=== PATIENT | male | born 1960 | race Caucasian/White ===

== ENCOUNTER 2020-12-20 09:56 | Outpatient (RCR) | payer OTHER, SELFPAY ==
[2016-07-19 17:33] VITALS: BMI 29.5
== END 2021-02-20 23:59 ==
LOC: IMMUN 09:56
PROVIDERS: PCP Nurse Practitioner Primary Care; Visit Provider Family Medicine
DX: Z23 Encounter for immunization (principal)
CPT/HCPCS: 0002A; 91300

== ENCOUNTER → 2021-01-18 | Outpatient (CLI) | payer OTHER, SELFPAY ==
[2016-07-19 17:33] VITALS: BMI 29.5
--- NOTE | 2021-01-18 | IMM_PTH ---
PATIENT: STALIN BENTLEY LOC: [facility] U#:[id number] AGE/SX: 60/M ROOM: RE01/18/[address]: Dr. Tyrone Conteh MD : 1960 BED: DIS: 01/18/2021 SPEC #: [id number] RECD: 01/19/21 12:07 STATUS: JACKIE REQ #: [id number] AKBAR: 01/18/21 00:[address]: Tyrone Conteh DEPT: IMMUNOHISTOCHEMISTRY RECD BY: Meaghan Waters ENTERED: 01/19/21 12:08 SP TYPE: IMMUNO OTHR DR: Mukul Escobar, CASING FLUSHER-C Tissues: A - PROSTATE RIGHT B - PROSTATE RIGHT C - PROSTATE RIGHT Procedures: 34BE12 (add) P40 (add) 34BE12 (initial) PHYSICIAN & INSTITUTION [place] [id number] SPECIMEN INFORMATION: Tissue Source: A - Right prostate, apex, B - Right prostate, mid, C - Right prostate, base Clinical Info: R97.20 Specimen Number: [id number] A-C CPT code: 86272, 35450 x5 METHODOLOGY: Deparaffinized sections of prefer/formalin-fixed tissue or PAP/DQ stained slides are incubated with monoclonal/polyclonal antibodies/oligonucleotide probes. Localization is made via biotin free immunoperoxidase method. Appropriate controls are performed and reacted as expected. Results on target cell population are indicated in the following table: RESULTS: ANTIBODY / CLONE RESULT Block A 34BE12 (34BE12) negative P40 (BC28) negative Block B 34BE12 (34BE12) negative P40 (BC28) negative Block C 34BE12 (34BE12) negative P40 (BC28) negative These tests were developed and their performance characteristics determined by [facility]. They may not have been cleared or approved by the U.S. Food and Drug Administration. The FDA has determined that such clearance or approval is not necessary. The above immunohistochemical/dualISH markers are ordered and reviewed by the Pathologist. INTERPRETATION: A. Right prostate, apex, core biopsy: Adenocarcinoma. B. Right prostate, mid, core biopsy: Adenocarcinoma. C. Right prostate, base, core biopsy: Adenocarcinoma. AM:josy 01/19/2021
--- NOTE | 2021-01-18 08:00 | PROSBIL_PTH ---
PATIENT: STALIN BENTLEY LOC: [facility] U#:[id number] AGE/SX: 60/M ROOM: RE01/18/[address]: Dr. Tyrone Conteh MD : 1960 BED: DIS: 01/18/2021 SPEC #: [id number] RECD: 01/18/21 12:34 STATUS: JACKIE RESal #: [id number] AKBAR: 01/18/21 08:[address]: Tyrone Conteh DEPT: SURGICAL PATHOLOGY RECD BY: Sara Alfaro ENTERED: 01/18/21 12:34 SP TYPE: PROST BX MORGAN DR: Mukul Escobar, GUNJAN Tissues: A - PROSTATE RIGHT B - PROSTATE RIGHT C - PROSTATE RIGHT D - PROSTATE LEFT E - PROSTATE LEFT F - PROSTATE LEFT Procedures: PROSTATE BX HEADER OPERATION: Prostate biopsy PRE-OP DIAGNOSIS: R97.20 TISSUE SUBMITTED: A - Right apex, B - Right mid, C - Right base, D - Left apex, E - Left mid, F - Left base MICROSCOPIC DIAGNOSIS A. Right prostate, apex, core biopsy: Adenocarcinoma. [place] grade: 6 (3+3) Cores involved: 1 out of 2 cores Tissue involved: 2% Greatest tumor length: 1 millimeter See comment. B. Right prostate, mid, core biopsy: Adenocarcinoma. [place] grade: 6 (3+3) Cores involved: 1 out of 2 cores Tissue involved: 5% Greatest tumor length: 1.6 millimeters See comment. C. Right prostate, base, core biopsy: Adenocarcinoma. [place] grade: 6 (3+3) Cores involved: 2 out of 2 cores Tissue involved: 1% Greatest tumor length: 1 millimeter See comment. D. Left prostate, apex, core biopsy: Chronic prostatitis. E. Left prostate, mid, core biopsy: Focal glandular atrophy and mild chronic inflammation. F. Left prostate, base, core biopsy: Mild chronic inflammation, focal acute inflammation. Focal glandular atrophy. AM:josy 01/19/2021 COMMENT A-C. Immunohistochemistry ([id number]) supports the above diagnosis. Case has been reviewed in consultation with Dr. Zelaya who concurs with the above diagnosis. IDC:SJ MICROSCOPIC DESCRIPTION Slides are reviewed. GROSS DESCRIPTION A - Received is one container designated prostate, right apex. The specimen consists of two elongated fragments of light funes-white soft tissue measuring 0.7 and 1 cm in length and 0.1 cm in diameter. The specimen is totally submitted in one cassette. B - Received is one container designated prostate, right mid. The specimen consists of two elongated fragments of light funes-white soft tissue each measuring 1 cm in length and 0.1 cm in diameter. The specimen is totally submitted in one cassette. C - Received is one container designated prostate, right base. The specimen consists of two elongated fragments of light funes-white soft tissue each measuring 1 cm in length and 0.1 cm in diameter. The specimen is totally submitted in one cassette. D - Received is one container designated prostate, left apex. The specimen consists of two elongated fragments of light funes-white soft tissue measuring 0.7 and 1 cm in length and 0.1 cm in diameter. The specimen is totally submitted in one cassette. E - Received is one container designated prostate, left mid. The specimen consists of two elongated fragments of light funes-white soft tissue each measuring 1.1 cm in length and 0.1 cm in diameter. The specimen is totally submitted in one cassette. F - Received is one container designated prostate, left base. The specimen consists of two elongated fragments of light funes-white soft tissue each measuring 1.1 cm in length and 0.1 cm in diameter. The specimen is totally submitted in one cassette. / SJ:rg 01/18/21 TC:Samson [facility]: [id number] x6 ADDENDUM ADDENDUM ADDENDUM ADDENDUM ADDENDUM ADDENDUM ADDENDUM ADDENDUM 01/01/2022 15:33 ADDENDUM 01/01/2022 15:33 ADDENDUM 01/01/2022 15:33 ADDENDUM 01/01/2022 15:33 ADDENDUM 01/01/2022 15:33 An order for Oncotype testing was received from Dr. Conteh. This necessitated case review, block and slide selection by pathologist at [facility]. Genomic Prostate Score = 40 Results of the complete Oncotype testing (Lotus Tissue Repair report) are viewable in EMR under: Reports - Pathology - Lab Pathology Report, Scanned.
== END | disposition home or self-care (01) ==
LOC: LABSPEC 10:54
PROVIDERS: PCP Nurse Practitioner Primary Care; Referring Provider Urology; Visit Provider Urology
DX: R97.20 Elevated prostate specific antigen [PSA] (principal)
CPT/HCPCS: 88305; 88341; 88342; G0416

== ENCOUNTER → 2021-09-03 08:08 | Outpatient (CLI) | payer SELFPAY ==
[2021-09-03 09:33] LABS: PSA,Total- Diagnostic 3.84 ng/mL (0.0-4.0)
== END ==
PROVIDERS: PCP Nurse Practitioner Primary Care; Visit Provider Urology
DX: C61 Malignant neoplasm of prostate (principal)
CPT/HCPCS: 36415; 84153

== ENCOUNTER → 2022-02-28 | Outpatient (CLI) | payer OTHER, SELFPAY ==
[2022-02-28 08:11] LABS: PSA,Total- Diagnostic 5.27 ng/mL (0.0-4.0)
== END | disposition home or self-care (01) ==
LOC: LAB 07:17
PROVIDERS: PCP Nurse Practitioner Primary Care; Referring Provider Urology; Visit Provider Urology
DX: C61 Malignant neoplasm of prostate (principal)
CPT/HCPCS: 36415; 84153

== ENCOUNTER → 2022-04-03 | Outpatient (CLI) | payer OTHER, SELFPAY ==
[2022-04-03 06:55] LABS: CREATININE FINGERSTICK < 0.9 mg/dL (0.70-1.30); EGFR FINGERSTICK > 60.0000 mL/min (>60)
--- NOTE | 2022-04-03 07:00 | MRI_ITS ---
STUDY: MR PELVIS WITH T WITHOUT CONTRAST REASON FOR EXAM: Male, 61 years old. ELEVATED PSA, + BIOPSY TECHNIQUE: Standardized fat and water weighted pulse sequences were obtained in all 3 orthogonal planes, pre-and post contrast administration. IV 15ml Dotarem was administered for the contrast portion of the examination. COMPARISON: None. FINDINGS: Prostate Volume: Mildly enlarged at 5.83 x 3.72 x 4.52 cm. There are 2 dominant ovoid and rounded primarily hypointense nodules centered in the middle one third aspect of the transitional zone on the left and right side of the prostate gland measuring 1.60 cm and 1.68 cm respectively that are concerning for focal malignancies. The nodule on the right demonstrates moderate enhancement, however the nodule on the left demonstrates minimal enhancement, see image 16/32 series #10 on the postcontrast sequence. There is mild herniation of the base of the prostate gland into the bladder floor. The prostate peripheral zone glandular tissue appears diffusely heterogeneous with a diffusely nodular pattern, consistent with prostatic hyperplasia. The prostate central zone glandular tissue appears diffusely heterogeneous and nodular. The prostate transitional zone glandular tissue appears diffusely heterogeneous and nodular. Anterior fibromuscular stroma: Unremarkable. Prostate capsule: Intact without evidence of a mass/neoplasm invading through this region. The seminal vesicles appear normal without evidence of nodules or lesions. Normal urinary bladder. Normal visualized small intestine. There are multiple colonic diverticula of the sigmoid colon consistent with chronic diverticulosis. There is no pelvic fluid. There is no pelvic mass lesion or lymphadenopathy. Normal visualized pelvic arteries. Normal osseous structures. Normal abdominal wall. A moderate to large size left testicular hydrocele is present. MRI/Pelvis W/WO Contrast IMPRESSION: 1. There are 2 dominant ovoid and rounded primarily hypointense nodules centered in the middle one third aspect of the transitional zone on the left and right side of the prostate gland measuring 1.60 cm and 1.68 cm respectively that are concerning for focal malignancies. 2. The nodule on the right demonstrates moderate enhancement, however the nodule on the left demonstrates minimal enhancement, see image 16/32 series #10 on the postcontrast sequence. 3. PI-RADS 4 4. Moderate to large size left testicular hydrocele 5. Sigmoid diverticulosis REFERENCE: Prostate RADS PI-RADS is used to standardize interpretation of prostate MRI, improve early diagnosis and treatment, and reduce unnecessary biopsies. In the PI-RADS scale, each lesion is assigned a score from 1 to 5 indicating the likelihood of clinically significant cancer. ? PI-RADS 1: clinically significant cancer is highly unlikely to be present ? PI-RADS 2: clinically significant cancer is unlikely to be present ? PI-RADS 3: the presence of clinically significant cancer is equivocal ? PI-RADS 4: clinically significant cancer is likely to be present ? PI-RADS 5: clinically significant cancer is highly likely to be present Electronically Signed: Scotty Marshall MD at 11:38 EDT ,
== END | disposition home or self-care (01) ==
PROVIDERS: PCP Nurse Practitioner Primary Care; Referring Provider Urology; Visit Provider Urology
DX: R97.20 Elevated prostate specific antigen [PSA] (principal)
CPT/HCPCS: 72197; A9575

== ENCOUNTER 2022-05-10 10:55 | Observation (INO) | payer OTHER, SELFPAY ==
[2022-05-06 09:58] LABS: Hematocrit 47.9 % (40-54); Hemoglobin 16.4 g/dL (13.0-16.5); Mean Corp Hgb Conc 34.2 g/dL (32-36); Mean Corpuscular Hgb 31.3 pg (27.0-32.0); Mean Corpuscular Volume 91.4 fL (80-94); Mean Platelet Vol. 9.3 fl (6.2-12.0); Platelet Count 304 K/mm3 (150-450); RBC Distribution Width CV 12.9 % (11.6-14.6); RBC Distribution Width SD 43.1 fl (35.1-43.9); Red Blood Count 5.24 M/mm3 (4.6-6.2); White Blood Count 9.1 K/mm3 (4.4-11.0)
[2022-05-06 10:06] LABS: International Normalized Ratio 1.1; Prothrombin Time (Protime)PT. 13.6 SECONDS (11.7-14.9)
[2022-05-06 10:24] LABS: AST(SGOT) 18 U/L (15-37); Alanine Aminotransfer ALT/SGPT 35 U/L (16-61); Albumin, Serum 3.8 g/dL (3.2-5.0); Alkaline Phosphatase 72 U/L (45-117); Anion Gap 5 (5-15); BUN 15 mg/dL (7-18); BUN/Creat Ratio 14.3 RATIO (10-20); Calcium,Total 9.1 mg/dL (8.5-10.1); Chloride 105 mmol/L (98-107); Creatinine, Serum 1.05 mg/dL (0.70-1.30); EST Glomerular Filtration Rate 76 mL/min (>60); Est Glom Filt Rate - Afr Amer 92 mL/min (>60); Globulin 3.8 g/dL (2.2-4.2); Glucose 102 mg/dL (74-106); Potassium 3.9 mmol/L (3.5-5.1); Protein, Total 7.6 g/dL (6.4-8.2); Sodium Level 139 mmol/L (136-145)
[2022-05-06 10:29] LABS: Hemoglobin A1c 6.1 % (3.8-5.6)
--- NOTE | 2022-05-07 12:56 | EKG12_ITS ---
Test Reason : PREOP Blood Pressure : / mmHG Vent. Rate : 070 BPM Atrial Rate : 070 BPM P-R Int : 114 ms QRS Dur : 080 ms QT Int : 394 ms P-R-T Axes : 016 029 014 degrees QTc Int : 425 ms Normal sinus rhythm Normal ECG Confirmed by JO DAUGHERTY, ANG ([id number]), editor in chief ELSY LR ([id number]) on 05/07/2022 12:58:04 PM Referred By: Tyrone Conteh Confirmed By:ANG OSORIO MD
[2022-05-10] VITALS (11 sets, daily range): BP systolic 124–157; BP diastolic 76–95; PULSE 61–81; RESP 16–18; TEMP 36.3–36.6; O2SAT 93–100; BMI 26.1
[2022-05-10] MEDS: Lactated Ringers 1,000 ML 15 ML IV (06:30)
[2022-05-10 07:26] LABS: Bedside Glucose 161 mg/dL (74-106)
[2022-05-10] MEDS: Cefazolin 2 GM in 0.9% Normal Saline 100 ML IV (07:30)
--- NOTE | 2022-05-10 07:30 | PROST_PTH ---
PATIENT: STALIN BENTLEY LOC: [facility] U#:[id number] AGE/SX: 61/M ROOM: [facility] RE05/10/[address]: Dr. Tyrone Conteh MD : 1960 BED: 1 DIS: 05/11/2022 SPEC #: [id number] RECD: 05/10/22 16:41 STATUS: JACKIE RESal #: [id number] AKBAR: 05/10/22 07:[address]: Tyrone Conteh DEPT: SURGICAL PATHOLOGY RECD BY: Sara Alfaro ENTERED: 05/13/22 08:13 SP TYPE: PROSTATE OTHR DR: Mukul Escobar, GUNJAN Tissues: A - Lymph node, NOS B - Prostate, NOS Procedures: Surgery Specimen Level IV Surgery Specimen Level HEADER OPERATION: Lap robotic radical prostatectomy with nerve monitoring PRE-OP DIAGNOSIS: Prostate cancer TISSUE SUBMITTED: A ? Pelvic lymph nodes and fat, B - Prostate MICROSCOPIC DIAGNOSIS A. Pelvic lymph nodes and fat: Adipose tissue, negative for carcinoma. See comment. B. Prostate, radical prostatectomy: Prostatic adenocarcinoma. See cancer summary in the comment section. SJ:josy 05/15/2022 COMMENT A. Lymph node tissue is not identified. B. PROSTATE CANCER (RADICAL) SUMMARY: Procedure: Radical Prostatectomy Prostate Size: Weight: 53.8 gm Size: 4.5 cm transversely, 3.5 cm anterior-posteriorly and 3.5 cm craniocaudally Histologic Grade: Grade group 1 ([place] score 3+3=6) Tumor Quantitation: Estimated percentage of prostate involved by tumor: ~10% Tumor size: Tumor is measured microscopically. Tumor involves both right and left lobes. The tumor extensively involves right lobe, apical, mid and basal portion prostate and measures approximately 2.8 x 2.4 x 0.8 cm, Tumor involves left lobe apical, mid and basal portion in discontinuous manner and largest focus measures 1 x 0.4 cm in greatest dimension. Extraprostatic Extension: Not identified Urinary Bladder Neck Invasion: Not identified Seminal Vesicle Invasion: Not identified Lymphvascular Invasion: Not identified Perineural Invasion: Present, focal Margins: Uninvolved by invasive carcinoma Regional Lymph Nodes: No lymph nodes are found. Treatment Effect: No known presurgical therapy. Distant metastasis: No applicable Additional Pathologic Findings: - Focal high-grade prostatic intraepithelial neoplasia (HGPIN). - Chronic inflammation. - Benign prostatic hyperplasia. Axillary Studies: Not performed Clinical history: Please make reference to previous specimen ([id number]) right prostate apex, mid and base, core biopsies with diagnosis of ?adenocarcinoma.? PATHOLOGIC STAGE: pT2 pNx pMx The above summary is in compliance with [employer] (CAP) Cancer Protocols Checklist and [place] Joint Committee on Cancer (AJCC), Staging Manual, 8th Ed. Case has been reviewed in consultation with Dr. Chapa who concurs with the above diagnosis. IDC:AM MICROSCOPIC DESCRIPTION Slides are reviewed. GROSS DESCRIPTION A - Received in fixative is one container labeled with the patient's name and designated pelvic lymph node and fat. The specimen consists of an irregular piece of tissue measuring 4.5 x 4 x 0.5 cm. No lymph node tissue is identified. The entire specimen is submitted in three cassettes. B - Received in fixative is one container labeled with the patient's name and designated prostate. The specimen consists of a radical prostatectomy specimen consisting of prostate and bilateral seminal vesicles. The specimen weighs 53.8 gm. The prostate measures 4.5 cm transversely, 3.5 cm anterior-posteriorly and 3.5 cm craniocaudally. The right seminal vesicle measures 3 x 1.5 x 1 cm and right vas deferens measures 2.5 cm in length and 0.5 cm in diameter. The left seminal vesicle measures 3 x 1.5 x 1 cm and the left vas deferens measures 3 cm in length and 0.5 cm in diameter. The prostate is inked as follows: anterior surface - yellow, posterior surface - black, right lateral surface - blue, left lateral surface - green. The bilateral seminal vesicles and vas deferens are inked as follows: Posterior surface bilateral seminal vesicle and vas deferens - black, anterior surface right seminal vesicle and vas deferens - blue and anterior left seminal vesicle and vas deferens - green. Flight Readiness Technician sections are submitted in 20 cassettes as follows: 1 - right seminal vesicle and vas deferens, 2 - left seminal vesicle and vas deferens, 3 - apical (urethral) margin, enface, 4 & 5 - bladder base and basal portion of prostate margin, enface, 6-10 - apical portion prostate, 11-14 - middle portion prostate, 15-20 - basal portion prostate. Sections are submitted after additional fixation. / FELICIANO:josy 05/13/2022 TC:0 CPT: 66513, 72065
[2022-05-10] MEDS: Bupivacaine 0.25% 30 ML Vial (07:59)
--- NOTE | 2022-05-10 11:00 | HP.PCM_ITS ---
HPI - General General Date of Service: 05/10/22 HPI Vanessa BENTLEY, is a 61 M who presents for radical prostatectomy for prostate cancer, [facility], [facility] Medical History (Updated 05/01/22 @ 13:06 by Vonnie Black) Cancer Diabetes Dietary restriction Excessive bleeding Gastric reflux High cholesterol Hypertension Leg cramps Non-smoker Prostate disease Wears glasses Home Medications metformin 500 mg tablet 500 mg PO BID 07/19/16 [History Last Taken 05/09/22] pravastatin 40 mg tablet 40 mg PO DAILY 07/19/16 [History Last Taken 05/09/22] carvedilol 12.5 mg tablet 12.5 mg PO BID 05/01/22 [History Last Taken 05/10/22] multivitamin 1 cap PO DAILY 05/01/22 [History Last Taken 05/09/22] ciprofloxacin HCl 500 mg tablet (Cipro) 500 mg PO BID #20 tabs 05/10/22 [Rx Last Taken Unknown] docusate sodium 100 mg capsule (Colace) 100 mg PO BID #20 caps 05/10/22 [Rx Last Taken Unknown] hydrochlorothiazide 12.5 mg tablet 12.5 mg PO DAILY 05/10/22 [History Last Taken 05/09/22] ibuprofen 600 mg tablet 600 mg PO Q6H PRN fever or pain #20 tabs 05/10/22 [Rx Last Taken Unknown] Allergy/AdvReac Type Severity Reaction Status Date / Time No Known Allergies Allergy Verified 05/01/22 12:56 Surgical History (Updated 05/01/22 @ 13:06 by Vonnie Black) Hx of colonoscopy Hx of inguinal hernia surgery Social History Smoking Status: Never smoker Vital Signs Vital Signs Vital Signs: 05/10/22 06:53 05/10/22 06:53 Temperature 97.9 F Temperature Source Temporal Pulse Rate 66 Respiratory Rate 18 Respiratory Pattern Normal Blood Pressure 146/95 H Blood Pressure Mean 112 Blood Pressure Source Monitor Blood Pressure Position Semi-Fowlers Blood Pressure Location Left Arm Pulse Ox 99 Oxygen Delivery Method Room Air Weight Weight: 78.018 kg Body Mass Index (BMI) 26.1 Results Lab / Micro Data Result Diagrams: 05/06/22 08:44 05/06/22 08:44 Labs: Laboratory Results - last 24 hr 05/10/22 06:26: POC Glucose 161 H
--- NOTE | 2022-05-10 11:00 | DCINST_ITS ---
Discharge Instructions Diet Discharge Diet: No restrictions, Light diet - advance as tolerated and Soft diet Activity Discharge Activity: May Not Drive Lifting Restrictions: No heavy lifting for 6 weeks Follow Up Care Please Follow Up With: Tyrone Conteh MD When: Call office for an appointment in 2 weeks, [phone] Test Results: Test results from this visit will be discussed in further detail at your follow- up appointment, if applicable. Discharge Plan Admission Primary Reason for Your Visit: Radical prostatectomy Attending Provider: Tyrone Conteh Primary Care Provider: Mukul Escobar NP Instructions Patient Instructions: Radical Prostatectomy Dc Discharge Orders/Prescriptions Prescriptions: New ibuprofen 600 mg tablet 600 mg PO Q6H PRN (Reason: fever or pain) Qty: 20 0RF docusate sodium [Colace] 100 mg capsule 100 mg PO BID Qty: 20 0RF ciprofloxacin HCl [Cipro] 500 mg tablet 500 mg PO BID Qty: 20 0RF Continued metformin 500 MG tablet 500 mg PO BID pravastatin 40 MG tablet 40 mg PO DAILY carvedilol 12.5 mg Tablet 12.5 mg PO BID Rx Instructions: must administer with a meal/food multivitamin Capsule 1 cap PO DAILY hydrochlorothiazide 12.5 mg Tablet 12.5 mg PO DAILY Referrals / Follow Up: Tyrone Conteh MD [Med Staff - Active Staff] - Mukul Escobar NP, MAINTENANCE EQUIPMENT OPERATOR-C [Primary Care Provider] - Disposition Disposition (needs filled in before D/C Order can be placed): Home, Self Care
--- NOTE | 2022-05-10 11:01 | PCM.OPRPT ---
Report of Operation Date of Procedure: 05/10/22 Pre-Operative Diagnosis: Prostate cancer Post-Operative Diagnosis: Same Surgery/Procedure Performed:: Laparoscopic robotic assisted radical prostatectomy, suspension of urethra Description of Surgical Findings:: Indication this is a 61-year-old male who presents to the hospital for a radical prostatectomy we talked about the options of management he could continue with active surveillance, we could do radiation, he could have surgery, we talked about the results from surgery, talked about the most expected and common complications and rare complications, also talked about the potential to lose erections and erectile dysfunction and also the potential to have bladder control and incontinence problems after surgery. After long discussion with the patient in the office please see my office notes he wants to proceed with a radical prostatectomy with bilateral nerve sparing. Patient was taken back to the operating room at the smooth induction of general anesthesia he was placed supine on the table he was positioned on the beanbag sites were secured he was placed in dorsolithotomy position with the legs in stirrups we tilt test to the patient. And the patient's abdomen was shaved prepped and draped in usual sterile fashion as well as the penis and testicles. We placed a 18 Upper Sorbian catheter in the bladder we then placed our camera port in the umbilicus right arm port into left arm ports faculty i on call medical assistant port for suction and air seal port. We then docked the robot and proceeded with the surgery I first reflected some of the attachments of the sigmoid colon off the lateral wall then was able to retract sigmoid colon out of the pelvis with the with the fourth arm and then dissected the follow the vas deferens down to the pelvis dissected behind the vas deferens all the way to the tip of the apex of the prostate I did decide to dissect out the right vas deferens and seminal vesicle the left vas deferens and seminal vesicle. We then dissected above the vas deferens some vesicle. I then pulled out of the pelvis we really did the retraction on the sigmoid colon I then opened up the prostate in the midline and then dissected and entering the space of Retzius in the midline pulling the bladder on traction of the fourth arm he had prior hernia repair there was some adhesions between the bladder and the hernia repair this was taken down very sharply and finally freed up the bladder completely from the prior hernia repair the mesh was left in place then after opening up the space of Retzius from the bladder on traction then we put the prostate on traction laterally I incised the endopelvic fascia on the prostate side and the right side releasing the levator muscles off the prostate elevated the apex tips I then transected to the puboprostatic ligaments and freed up the dorsal vein complex on the right side we then placed traction the prostate to the left side we went to the left endopelvic fascia open of the left endopelvic fascia freed up the levator muscles off the left prostate working way up to the apex transected to the puboprostatic ligament and then freed up the dorsal vein complex I then used the fourth arm Prograft to grab the dorsal vein complex in the arm and then we suture-ligated the dorsal vein complex with CT1 needle 0 Vicryl 9 inches in length. After we were done suture ligating the dorsal vein complex then we tacked up the dorsal vein complex to the pubic bone to help anchor this I then pulled back we looked at the junction between the bladder and the prostate and then moving the catheter identify the junction between the bladder prostate and then dissected using electrocautery scissors between the bladder and prostate until we came across the catheter the bladder was then deflated catheter was pulled back and then we continued dissected between the bladder and prostate until we got to the posterior bladder and then dissected between the bladder and prostate opening up the attachments tween the bladder and prostate posteriorly until we reached the seminal vesicle and vas deferens. I then used the progress fourth arm to retract the prostate left to start dissecting the right neurovascular bundle off the prostate we first incised the endopelvic fascia that was laying on top of the prostate we went underneath the veins and then swept these off laterally I then could see the ridge where the dorsal vein complex met up with the neurovascular bundles on the right side I was traced these all the way back to the pedicles and then took the pedicles with clips making sure not to injure the neurovascular bundle I then elevated the prostate up and then we swept the neurovascular bundles with meticulous dissection underneath the right side all the way to the apex it was a perfect dissection and the neurovascular bundles came off X in an excellent fashion with no injury. We then switched the ports so that I can retract the prostate laterally switched we then retracted the prostate to the right side came in again incised endopelvic fascia over the prostate on the left side of the prostate reflecting the fascia off the left side staying on the pseudocapsule of the prostate all the way laterally I then dissected the neurovascular on the left side coming towards the apex and then coming back to the base then the perforating pedicles were identified these were then clipped and then we elevated the prostate up and then we again were able to sweep the neurovascular bundle on the left side off the inferior part of the prostate all the way to the apex in a very perfect manner it was a perfect dissection with no injury to the neurovascular bundle good sparing of the bundle all the way to the apex we then came across the dorsal vein complex there was no bleeding from the dorsal vein we then came down to the urethra dissected around urethra circumferentially we then transected through the urethra and then the prostate was free and put in an Endo Catch bag. We then completed anastomosis between the bladder neck and the urethra using a V-Loc stitch. Once anastomosis was completed then we also did a suture suspension of the urethra tacking up the urethra up to the pubic bone with the V-Loc stitch this this allowed for an nice tacking to help with incontinence. After this was completed then we flushed and irrigated our blood loss was only by the 100 cc all the needles and sponges were accounted for I then used V-Loc stitch to reattach the bladder flap back up to the peritoneum to close this back up and then the all the ports were removed we extracted the prostate to the umbilicus and then we closed all the incisions with subcuticular stitches patient's anesthetic is currently being reversed and taken back to the PACU in good condition that should and the patient Mr. Bingham Surgeon: Tyrone Conteh Type of Anesthesia: General Drains: dean 18 fr Estimated Blood Loss (mL): 100cc
[2022-05-10 11:45] LABS: Bedside Glucose 171 mg/dL (74-106)
[2022-05-10] MEDS: Ketorolac 30 MG/ML Syringe IV ×2 (13:45→18:07)
[2022-05-10] MEDS: Carvedilol 12.5 MG Tablet PO (17:02)
[2022-05-10] MEDS: metFORMIN HCl 500 MG Tablet PO (17:02)
[2022-05-10] MEDS: Ciprofloxacin 500 MG Tablet PO (18:07)
[2022-05-10] MEDS: Docusate Sodium 100 MG Capsule PO (21:26)
[2022-05-10] MEDS: Pravastatin 40 MG Tablet PO (21:26)
[2022-05-11] MEDS: Ketorolac 30 MG/ML Syringe IV ×2 (00:28→06:13)
[2022-05-11 01:00] VITALS: BP 135/81; PULSE 69; RESP 16; TEMP 36.8; O2SAT 96
[2022-05-11 05:35] VITALS: BP 144/83; PULSE 65; RESP 14; TEMP 36.8; O2SAT 95
[2022-05-11 08:45] VITALS: BP 172/91; PULSE 71; RESP 14; TEMP 36.5; O2SAT 98
[2022-05-11] MEDS: Carvedilol 12.5 MG Tablet PO (08:46)
[2022-05-11] MEDS: Docusate Sodium 100 MG Capsule PO (08:46)
[2022-05-11] MEDS: Ciprofloxacin 500 MG Tablet PO (08:46)
[2022-05-11] MEDS: metFORMIN HCl 500 MG Tablet PO (08:46)
[2022-05-11] MEDS: Multivitamins,Therapeutic Tablet 1 TABLET PO (08:46)
[2022-05-11] MEDS: hydroCHLOROthiazide 12.5mg 12.5 MG PO (08:46)
[2022-05-11 11:30] VITALS: BP 160/90; PULSE 71; RESP 16; TEMP 36.6; O2SAT 98
== END 2022-05-11 12:00 | disposition home or self-care (01) ==
LOC: AC 10:55 → SDC 15:57 → MS3 15:57
PROVIDERS: Anesthesiology; Admitting Provider Urology; PCP Nurse Practitioner Primary Care; Referring Provider Urology; Visit Provider Urology
PROC: 0VT04ZZ Resection of Prostate, Percutaneous Endoscopic Approach (ICD-10-PCS; CPT 55866; principal; 2022-05-10 07:10)
DX: C61 Malignant neoplasm of prostate (principal); E11.9 Type 2 diabetes mellitus without complications; I10 Essential (primary) hypertension; E78.00 Pure hypercholesterolemia, unspecified; Z79.84 Long term (current) use of oral hypoglycemic drugs; Z79.899 Other long term (current) drug therapy; K21.9 Gastro-esophageal reflux disease without esophagitis; Z86.2 Personal history of diseases of the blood and blood-forming organs and certain disorders involving the immune mechanism
CPT/HCPCS: 55866; 00865; 36415; 80048; 80076; 82962; 83036; 85027; 85610; 85730; 86850; 86900; 86901; 88305; 88309; 93005; 96374; 96376; 99218; J7120; G0378; J2310; J2405; J3490

== ENCOUNTER → 2022-07-08 | Outpatient (CLI) | payer OTHER, SELFPAY ==
[2022-07-08 09:42] LABS: PSA,Total- Diagnostic 0.01 ng/mL (0.0-4.0)
== END | disposition home or self-care (01) ==
PROVIDERS: PCP Nurse Practitioner Primary Care; Visit Provider Urology
DX: C61 Malignant neoplasm of prostate (principal)
CPT/HCPCS: 36415; 84153

== ENCOUNTER → 2022-10-14 | Outpatient (CLI) | payer OTHER, SELFPAY ==
[2022-10-14 09:43] LABS: PSA,Total- Diagnostic < 0.01 ng/mL (0.0-4.0)
== END | disposition home or self-care (01) ==
LOC: LAB 08:43
PROVIDERS: PCP Nurse Practitioner Primary Care; Referring Provider Registered Nurse; Visit Provider Registered Nurse
DX: C61 Malignant neoplasm of prostate (principal)
CPT/HCPCS: 36415; 84153

== ENCOUNTER → 2022-12-31 | Outpatient (CLI) | payer OTHER, SELFPAY ==
[2022-12-31 08:18] LABS: PSA,Total- Diagnostic < 0.01 ng/mL (0.0-4.0)
== END | disposition home or self-care (01) ==
PROVIDERS: PCP Nurse Practitioner Primary Care; Referring Provider Registered Nurse; Visit Provider Registered Nurse
DX: C61 Malignant neoplasm of prostate (principal)
CPT/HCPCS: 36415; 84153

== ENCOUNTER → 2023-07-09 | Outpatient (CLI) | payer OTHER, SELFPAY ==
[2023-07-09 08:43] LABS: PSA,Total- Diagnostic < 0.01 ng/mL (0.0-4.0)
== END | disposition home or self-care (01) ==
LOC: LAB 07:29
PROVIDERS: PCP Nurse Practitioner Primary Care; Referring Provider Registered Nurse; Visit Provider Registered Nurse
DX: C61 Malignant neoplasm of prostate (principal)
CPT/HCPCS: 36415; 84153

== ENCOUNTER → 2024-01-05 | Outpatient (CLI) | payer OTHER, SELFPAY ==
[2024-01-05 09:19] LABS: PSA,Total- Diagnostic < 0.01 ng/mL (0.0-4.0)
== END | disposition home or self-care (01) ==
LOC: LAB 07:19
PROVIDERS: PCP Nurse Practitioner Primary Care; Visit Provider Nurse Practitioner
DX: C61 Malignant neoplasm of prostate (principal)
CPT/HCPCS: 36415; 84153

== ENCOUNTER → 2024-07-05 | Outpatient (CLI) | payer OTHER, SELFPAY ==
[2024-07-05 08:20] LABS: PSA,Total- Diagnostic < 0.01 ng/mL (0.0-4.0)
== END | disposition home or self-care (01) ==
LOC: LAB 07:14
PROVIDERS: PCP Nurse Practitioner Primary Care; Referring Provider Urology; Visit Provider Urology
DX: C61 Malignant neoplasm of prostate (principal)
CPT/HCPCS: 36415; 84153

== ENCOUNTER → 2025-04-12 | Outpatient (CLI) | payer OTHER, SELFPAY ==
--- OUTSIDE RECORDS SUMMARY | 2025-04-12 07:36 | XMS RPT_ITS | CCD ---
Author Organization [facility] Informat ion Partnership [facility] Care Team Providers Care Route Clerk Name Role Phone NOREEN CAMPOVERDE, LISETTE Primary Care Physician NOREEN CAMPOVERDE, LISETTE Attending Unavailabl e BALTES COMPATIBILITY TEST ENGINEER-ONSHORE DIVER, LISETTE Primary Care UnavailRHIANNON Lynn MD Attending Unavailable BALTES COMPATIBILITY TEST ENGINEER-ONSHORE DIVER, LISETTE Primary Care Unavailabl e BALTES COMPATIBILITY TEST ENGINEER-ONSHORE DIVER, LISETTE Primary Care Unavailabl mohinder COTO MD, DR MELISSA Us Attending Unavail able Baltes PARKS RECREATION COORDINATOR, Lisette Primary Care Unavailable Supriya Montes De Oca Attending Unavailable WeroTyrone Referring Unavailable Kishoretes PARKS RECREATION COORDINATOR, Lisette Primary Care Unavailable Tyrone Ji Attending Unavailable BALTES COMPATIBILITY TEST ENGINEER-ONSHORE DIVER, LISETTE Primary Care Unavailabl e BALTES COMPATIBILITY TEST ENGINEER-ONSHORE DIVER, LISETTE Attending Unavailabl e BALTES COMPATIBILITY TEST ENGINEER-ONSHORE DIVER, LISETTE Primary Care Unavailabl e BALTES COMPATIBILITY TEST ENGINEER-ONSHORE DIVER, LISETTE Attending Unavailabl e BALTES COMPATIBILITY TEST ENGINEER-ONSHORE DIVER, LISETTE Attending Unavailabl e BALTES COMPATIBILITY TEST ENGINEER-ONSHORE DIVER, LISETTE Primary Care Unavailabl e BALTES COMPATIBILITY TEST ENGINEER-ONSHORE DIVER, LISETTE Attending Unavailabl e BALTES COMPATIBILITY TEST ENGINEER-ONSHORE DIVER, LISETTE Primary Care Unavailabl e BALTES COMPATIBILITY TEST ENGINEER-ONSHORE DIVER, LISETTE Attending Unavailabl e BALTES COMPATIBILITY TEST ENGINEER-ONSHORE DIVER, LISETTE Primary Care Unavailabl RHIANNON Chang MD Attending Unavailable BALTES COMPATIBILITY TEST ENGINEER-ONSHORE DIVER, LISETTE Primary Care Unavailabl e Medications Current Medications Medication Drug Class(es) Dates Sig (Normalized) Sig (Original) acetaminophen 500 mg oral tablet (10 sources) Start: 06-01-20 acetaminophen 500 mg oral tablet Dose : 1,000 mg = 2 tab(s), Oral, q6hr, PRN for pain, 0 Refill(s) Start Date: 06/01/19 Status: Ordered acetaminophen 325 mg / HYDROcodone bitartrate 5 mg oral tablet (2 sources) Opioid Agonist Start: 07-19-20 take 1 tablet by mouth every four hours as needed Hydrocodone-Acetaminop hen Active 1 - 2 TABLET PO EVERY 4 HOURS NEEDED July 19, 2016 12:00am carvedilol 12.5 mg oral tablet (14 sources) alpha-Adrenergic Rickie, beta-Adrenergic Rickie Start: 11-30-19 carvedilol 12.5 mg oral tablet Dose : 12.5 mg = 1 tab(s), Oral, BID, # 180 tab(s), 0 Refill(s) Start Date: 11/29/21 Status: Ordered ciprofloxacin 500 mg oral tablet (6 sources) Quinolone Antimicrobial Start: 05-10-20 take 1 tablet by mouth twice daily Ciprofloxacin Hcl (Cipro) 500 mg tablet Active 500 MG PO TWICE A DAY May 10, 2022 12:00am docusate sodium 100 mg oral capsule (6 sources) Start: 05-10-20 take 1 capsule by mouth twice daily Docusate Sodium (Colace) 100 mg capsule Active 100 MG PO TWICE A DAY May 10, 2022 12:00am empagliflozin 10 mg oral tablet (1 source) Sodium-Glucose Cotransporter 2 Inhibitor Start: 02-17-20 Jardiance 10 mg oral tablet Dose : 10 mg = 1 tab(s), Oral, qAM, # 30 tab(s), 0 Refill(s) Start Date: 02/17/24 Status: Ordered esomeprazole 40 mg delayed release oral capsule (2 sources) Proton Pump Inhibitor Start: 07-19-20 16 take 40 mg by mouth once daily Esomeprazole Magnesium Active 40 MG PO DAILY July 19, 2016 12:00am fenofibrate 145 mg oral tablet (4 sources) Peroxisome Proliferator Receptor alpha Agonist Start: 07-19-20 16 take 145 mg by mouth once daily Fenofibrate Nanocrystallized Active 145 MG PO DAILY July 19, 2016 12:00am hydroCHLOROthiazide 12.5 mg oral tablet (7 sources) Thiazide Diuretic Start: 05-06-20 take 12.5 mg by mouth once daily Hydrochlorothiazide Active 12.5 MG PO DAILY May 10, 2022 12:00am hydroCHLOROthiazide 12.5 mg / lisinopril 10 mg oral tablet (4 sources) Thiazide Diuretic, Angiotensin Converting Enzyme Inhibitor Start: 07-19-20 16 take 1 tablet by mouth once daily Lisinopril-Hydrochloro thiazide (Zestoretic 06/26.5 Tablet) 1 TABLET tablet Active 1 TABLET PO DAILY July 19, 2016 12:00am ibuprofen 600 mg oral tablet (6 sources) Nonsteroidal Anti-inflammatory Drug Start: 05-10-20 22 take 600 mg by mouth every six hours Ibuprofen Active 600 MG PO EVERY 6 HOURS May 10, 2022 12:00am metFORMIN hydrochloride 500 mg oral tablet (17 sources) Biguanide Start: 07-19-20 16 metFORMIN 500 mg oral tablet (IR) Dose : 500 mg = 1 tab(s), Oral, Daily, # 90 tab(s), 3 Refill(s), Pharmacy: [facility]/pharmacy #[id number], Diabetes mellitus type 2, 172.7, cm, 08/26/23 8:57:00 EST, Height, kg, 08/26/23 8:57:00 EST, Dosing Weight Start Date: 08/26/23 Status: Ordered Multivitamin preparation (6 sources) Start: 05-01-20 take 1 capsule by mouth once daily Multivitamin Active 1 CAP PO DAILY April 30, 2022 11:00pm Start: 05-01-2022 take 1 capsule by mo ut once daily Multivitamin Active 1 CAP PO DAILY May 01, 2022 12:00am PEG-3350 with Electrolytes (Eqv-GoLYTELY) oral powder for reconstitution (1 source) Start: 03-05-2023 PEG-3350 with Electrolytes (Eqv-GoLYTELY) oral powder for reconstitution See Instructions, Take as directed 1 day before colonoscopy. Follow instructions as provided by your GI provider at [facility]., # 1 EA, 0 Refill(s), Pharmacy: [facility]/pharmacy #[id number], 172.7, cm, 03/05/23 9:20:00 EDT, Height Start Date: 03/05/23 Status: Ordered pravastatin sodium 40 mg oral tablet (18 sources) HMG-CoA Reductase Inhibitor Start: 07-19-2016 pravastatin 40 mg or al tablet Dose : 40 mg = 1 tab(s), Oral, qHS, # 90 tab(s), 3 Refill(s), Pharmacy: [facility]/pharmacy #[id number], Diabetes mellitus type 2, 172.7, cm, 08/26/23 8:57:00 EST, Height, kg, 08/26/23 8:57:00 EST, Dosing Weight Start Date: 08/26/23 Status: Ordered spironolactone 25 mg oral tablet (7 sources) Aldosterone Antagonist Start: 06-04-2022 spironolactone 25 mg oral tablet Dose : 25 mg = 1 tab(s), Oral, qDay, 0 Refill(s) Start Date: 06/04/22 Status: Ordered terbinafine 250 mg oral tablet (1 source) Allylamine Antifungal Start: 12-03-2022 End: 02-25-2023 terbinafine 250 mg oral tablet Dose : 250 mg = 1 tab(s), Oral, qDay, X 42 day(s), # 42 tab(s), 1 Refill(s), 02/25/23 10:19:00 EDT, Pharmacy: [facility]/pharmacy #[id number], Onychomycosis, 172.7, cm, 12/03/22 9:03:00 EDT, Height Start Date: 12/03/22 Stop Date: 02/25/23 Status: Ordered Problems Active Problems Problem Classification Problem Date Documented Date Episodic/Chronic Abdominal hernia (13 sources) Right inguinal hernia 06-08-2020 Episodic Cancer of prostate (11 sources) Malignant tumor of prostate; Translations: [Malignant neoplasm of prostate] Onset: 07-26-2024 06-04-2022 Chronic Chronic kidney disease (11 sources) Chronic kidney disease stage 2; Translations: [Chronic kidney disease stage 3A ] 06-04-2022 Chronic Diabetes mellitus with complications (5 sources) Disorder of kidney due to diabetes mellitus 12-24-2023 Chronic Diabetes mellitus without complication (20 sources) Type 2 diabetes mellitus; Translations: [Type 2 diabetes mellitus without complications] Onset: 10-01-2024 01-01-2018 Chronic Disorders of lipid metabolism (13 sources) Hyperlipidemia 11-30-2019 Chronic Esophageal disorders (10 sources) Gastroesophageal reflux disease 06-04-2022 Chronic Essential hypertension (20 sources) Benign hypertension 11-30-2019 Chronic Mycoses (8 sources) Onychomycosis 12-03-2022 Episodic Other and unspecified benign neoplasm (7 sources) History of polyp of colon 03-05-2023 Episodic Residual codes; unclassified (7 sources) Family history of cancer of colon 03-05-2023 Episodic Unclassified (16 sources) Patient encounter status 02-26-2023 Past or Other Problems Problem Classification Problem Date Documented Da te Episodic/Chronic Other screening for suspected conditions (not mental disorders or infectious disease) (2 sources) Encounter for screening for malignant neoplasm of colon; Translations: [Encounter for screening for malignant neoplasm of colon] Onset: 04-28-2023 Episodic Results Test Name Value Interpretation Reference Range Facility US SOFT TISSUE MASS OF LT AR M OR LEGon 01-03-2025 US SOFT TISSUE MASS OF LT ARM OR LEG ORIGINAL EXAMINATION: SOFT TISSUE ULTRASOUND OF THE LEFT EXTREMITY01/03/2025 7:08 am COMPARISON: Ultrasound 10/11/2024 TECHNIQUE: Duplex ultrasound using B-mode/berger scaled imaging and Doppler spectral analysis and color flow was obtained of the left extremity. HISTORY: ORDERING SYSTEM PROVIDED HISTORY: Reason for Exam: F/U / reassess left leg hematoma, FINDINGS: Scanning of the area of previous bruising and lump shows no residual fluid collection or other sonographic abnormality. IMPRESSION: There seems to be complete resolution of previously seen hematoma in the left calf region. Interpreted by: Doe Syed MD Preliminary Report By: Doe Syed MD Electronically signed By Doe Syed MD Dictated Date: 01/03/2025 9:41:22 AM Prelim Date: 01/03/2025 9:45:14 AM Sign Date: 01/03/2025 9:45:14 AM Ordering Provider: LISETTE SORTO [facility] .GFRon 12-24-2024 Estimated Glomerular Filtration Rate 65 ml/min/1.73sqm [facility] Comment on above: Result Comment: Stages of Chronic Kidney Disease (CKD) Stage Description eGFR(ml/min/1.73 sq.m.) CKD 1 Normal kidney function or >=90 normal kindney function with possible kidney damage (ex. Proteinuria) CKD 2 Kidney damage with mild loss 60-89 of kidney function CKD 3a Mild to moderate loss of kidney 45-59 function CKD 3b Moderate to severe loss of 30-44 of kindey function CKD 4 Severe loss of kidney function 15-29 CKD 5 Kidney failure <15 Note: (go live 2024) the eGFR calculation was updated to the 2020 CKD-EPI creatinine equation without a race factor to calculate the eGFR results. Performed By: #### G FR, BMP, PSA, A1C #### [id number] [place], [place] [address] A1Con 12-24-2024 Glucose [Mass/Vol] 140 mg/dL Normal [facility] Comment on above: Result Comment: Meghann mated Average Glucose calculated by equation ((28.7xA1C)-46.7) Estimated average glucose (eAG) is a calculated value from Hemoglobin A1C and is human resources representative of the average blood glucose level in the last 2-3 month period. Normal range: less than 114 mg/dL Performed By: #### G FR, BMP, PSA, A1C #### [address] [address] HbA1c (Bld) [Mass fraction] 6.5 % High 4.3-6.4 [facility] Comment on above: Performed By: #### G FR, BMP, PSA, A1C #### [address] [address] BMPon 12-24-2024 BUN/Creatinine Ratio 17 ratio Normal 7-27 [facility] Comment on above: Performed By: #### G FR, BMP, PSA, A1C #### [address] [address] Calcium [Mass/Vol] 9.9 mg/dL Normal 8.4-10.2 [facility] Comment on above: Performed By: #### G FR, BMP, PSA, A1C #### [address] [address] Chloride [Moles/Vol] 102 mmol/L Normal 98-107 [facility] Comment on above: Performed By: #### G FR, BMP, PSA, A1C #### [address] [address] CO2 [Moles/Vol] 30 mmol/L Normal 23-31 [facility] Comment on above: Performed By: #### G FR, BMP, PSA, A1C #### [address] [address] Creatinine [Mass/Vol] 1.25 mg/dL Normal 0.70-1.[address] [facility] Comment on above: Result Comment: Test ing performed on Siemens Dimension EXL analyzer using a modified kinetic Faiza technique. Performed By: #### G FR, BMP, PSA, A1C #### [address] [address] Electrolyte Balance 6.0 mEq/L Normal 4.0-15.0 [facility] Comment on above: Performed By: #### G FR, BMP, PSA, A1C #### [address] [address] Glucose [Mass/Vol] 149 mg/dL High 80-115 [facility] Comment on above: Performed By: #### G FR, BMP, PSA, A1C #### [address] [address] Potassium [Moles/Vol] 4.4 mmol/L Normal 3.5-5.[address] [facility] Comment on above: Performed By: #### Abeba FR, BMP, PSA, A1C #### [address] [address] Sodium [Moles/Vol] 138 mmol/L Normal 136-145 [facility] Comment on above: Performed By: #### G FR, BMP, PSA, A1C #### [address] [address] Urea nitrogen [Mass/Vol] 21 mg/dL High 7-18 [facility] Comment on above: Performed By: #### G FR, BMP, PSA, A1C #### [address] [address] PSAon 12-24-2024 Prostate Specific Antigen <0.05 Normal 0.00-4.00 [facility] Comment on above: Performed By: #### G FR, BMP, PSA, A1C #### [address] [address] US SOFT TISSUE MASS OF LT AR M OR LEGon 10-11-2024 US SOFT TISSUE MASS OF LT ARM OR LEG ORIGINAL EXAMINATION: SOFT TISSUE ULTRASOUND OF THE LEFT EXTREMITY10/11/2024 7:33 am COMPARISON: None TECHNIQUE: Duplex ultrasound using B-mode/berger scaled imaging and Doppler spectral analysis and color flow was obtained of the left extremity. HISTORY: ORDERING SYSTEM PROVIDED HISTORY: Reason for Exam: calf mass, FINDINGS: Scanning of the posteromedial calf in the area of patient's pain and concern shows no focal abnormality or mass. The musculature and soft tissues are unremarkable in this region. Scanning of the mid calf region posteriorly shows a small elliptical ovoid mildly complex fluid collection that has some internal echoes and moderately thick wall. This is 2.4 x 2.5 x 0.6 cm and seems to be located just superficial to the musculature. There is no blood flow in this abnormality. IMPRESSION: There is a small complex fluid collection in the posterior calf. This may be a hematoma within or just superficial to the musculature. Suggest short-term follow-up in about 8 weeks to demonstrate decrease in size/resolution. If this persists or enlarges or patient's symptoms are non resolving, MRI of the lower leg may be appropriate. Interpreted by: Doe Syed MD Preliminary Report By: Doe Syed MD Electronically signed By Doe Syed MD Dictated Date: 10/11/2024 11:55:02 AM Prelim Date: 10/11/2024 11:57:27 AM Sign Date: 10/11/2024 11:57:27 AM Ordering Provider: LISETTE SORTO Normal [facility]dered By: Florencia Boggs on 10-01-2024 Albumin DL <= 20 mg/L (U) [Mass/Vol] 348 mcg/dL Invalid Interpretation Code AO ADM SS Albumin/Creatinine DL <= 20 mg/L (U) [Mass ratio] 7 mcg/mg Normal 0 - 30 mcg/mg AO Chemistry S Creatinine (U) [Mass/Vol] 47.2 mg/dL Invalid Interpretation Code AO ADM SS MALBRon 10-01-2024 U Creatinine 47.2 mg/dL Normal [facility] Comment on above: Performed By: #### G FR, BMP, PSA, A1C #### [facility] [address] [place], [place] [address] U Microalb 348 mcg/dL Normal [facility] Comment on above: Performed By: #### G FR, BMP, PSA, A1C #### [address] [address] U Ratio Alb/Cre 7 mcg/mg Normal 0-30 [facility] Comment on above: Performed By: #### G FR, BMP, PSA, A1C #### [address] [address] PSA,Total- Diagnosticon 06-16 PSA, DIAGNOSTIC < 0.01 Normal 0.0-4.0 [facility] Comment on above: Result Comment: This test was performed using the TPSA assay method for the DuXplore chemistry system. Values obtained with different assay methods cannot be used interchangably. When changing PSA assays in the course of monitoring a patient, additional sequential testing should be carried out to confirm baseline values. Performed By: #### L [phone] #### [facility] [address] [place], [address] .Auto Diffon 06-21-2024 Basophil, Absolute 0.0 10 3/mcL Normal 0.0-0.2 [facility] Comment on above: Performed By: #### A CARLOS, RFP, ADIFF, FERR, CBC, GFR, URIC, FES #### [address] [address] #### PTH #### [address] [address] Basophils/100 WBC (Bld) 0.5 % Normal 0.0-2.5 [facility] Comment on above: Performed By: #### A CARLOS, RFP, ADIFF, FERR, CBC, GFR, URIC, FES #### [address] [address] #### PTH #### [address] [address] Eosinophil, Absolute 0.1 10 3/mcL Normal 0.0-0.7 [facility] Comment on above: Performed By: #### A CARLOS, RFP, ADIFF, FERR, CBC, GFR, URIC, FES #### [address] [address] #### PTH #### [address] [address] Eosinophils/100 WBC (Bld) 1.8 % Normal 0.0-7.0 [facility] Comment on above: Performed By: #### A CARLOS, RFP, ADIFF, FERR, CBC, GFR, URIC, FES #### [address] [address] #### PTH #### [address] [address] Lymphocyte, Absolute 1.7 10 3/mcL Normal 0.9-4.3 [facility] Comment on above: Performed By: #### A CARLOS, RFP, ADIFF, FERR, CBC, GFR, URIC, FES #### [address] [address] #### PTH #### [address] [address] Lymphocytes/100 WBC (Bld) 21.7 % Normal 20.0-40.0 [facility] Comment on above: Performed By: #### A CARLOS, RFP, ADIFF, FERR, CBC, GFR, URIC, FES #### [address] [address] #### PTH #### [address] [address] Monocyte, Absolute 0.4 10 3/mcL Normal 0.1-1.4 [facility] Comment on above: Performed By: #### A CARLOS, RFP, ADIFF, FERR, CBC, GFR, URIC, FES #### [address] [address] #### PTH #### [address] [address] Monocytes/100 WBC (Bld) 5.6 % Normal 2.0-13.0 [facility] Comment on above: Performed By: #### A CARLOS, RFP, ADIFF, FERR, CBC, GFR, URIC, FES #### [address] [address] #### PTH #### [address] [address] Neutrophils/100 WBC (Bld) 70.4 % Normal 50.0-75.0 [facility] Comment on above: Performed By: #### A CARLOS, RFP, ADIFF, FERR, CBC, GFR, URIC, FES #### [address] [address] #### PTH #### [address] [address] .GFRon 06-21-2024 GFR 77 ml/min/1.73sqm Normal [facility] Comment on above: Result Comment: GFR Population mean for , Non- Americans Ages 20-29 = 116 mL/min/1.73 sq.m. Ages 30-39 = 107 mL/min/1.73 sq.m. Ages 40-49 = 99 mL/min/1.73 sq.m. Ages 50-59 = 93 mL/min/1.73 sq.m. Ages 60-69 = 85 mL/min/1.73 sq.m. Ages 70+ = 75 mL/min/1.73 sq.m. Chronic Kidney Disease: Less than 60 mL/min/1.73 square meters End Stage Renal Disease: Less than 15 mL/min/1.73 square meters Performed By: #### G FR, BMP, PSA, A1C #### [address] [place], [place] [address] GFR Non- 64 ml/min/1.73sqm Normal [facility] Comment on above: Result Comment: GFR Population mean for , Non- Americans Ages 20-29 = 116 mL/min/1.73 sq.m. Ages 30-39 = 107 mL/min/1.73 sq.m. Ages 40-49 = 99 mL/min/1.73 sq.m. Ages 50-59 = 93 mL/min/1.73 sq.m. Ages 60-69 = 85 mL/min/1.73 sq.m. Ages 70+ = 75 mL/min/1.73 sq.m. Chronic Kidney Disease: Less than 60 mL/min/1.73 square meters End Stage Renal Disease: Less than 15 mL/min/1.73 square meters Performed By: #### G FR, BMP, PSA, A1C #### [place] [address] .NEUABSon 06-21-2024 Neutrophil, Absolute 5.5 10 3/mcL Normal 2.3-8.1 [facility] Comment on above: Performed By: #### A CARLOS, RFP, ADIFF, FERR, CBC, GFR, URIC, FES #### [place] [address] #### PTH #### [place] [address] CBCon 06-21-2024 Erythrocyte distribution width (RBC) [Ratio] 13.4 % Normal 11.5-15.5 [facility] Comment on above: Performed By: #### A CARLOS, RFP, ADIFF, FERR, CBC, GFR, URIC, FES #### [place] [address] #### PTH #### [place] [address] Hematocrit (Bld) [Volume fraction] 50.1 % Normal 40.0-52.0 [facility] Comment on above: Performed By: #### A CARLOS, RFP, ADIFF, FERR, CBC, GFR, URIC, FES #### [place] [address] #### PTH #### [place] [address] Hgb 16.8 G/dL Normal 13.0-17.5 [facility] Comment on above: Performed By: #### A CARLOS, RFP, ADIFF, FERR, CBC, GFR, URIC, FES #### [place] [address] #### PTH #### [place] [address] MCH (RBC) [Entitic mass] 31.3 pg Normal 27.0-33.0 [facility] Comment on above: Performed By: #### A CARLOS, RFP, ADIFF, FERR, CBC, GFR, URIC, FES #### [place] [address] #### PTH #### [place] [address] MCHC 33.5 G/dL Normal 32.0-36.0 [facility] Comment on above: Performed By: #### A CARLOS, RFP, ADIFF, FERR, CBC, GFR, URIC, FES #### [place] [address] #### PTH #### [place] [address] MCV (RBC) [Entitic vol] 93.3 fL Normal 81.0-100.0 [facility] Comment on above: Performed By: #### A CARLOS, RFP, ADIFF, FERR, CBC, GFR, URIC, FES #### [place] [address] #### PTH #### [place] [address] Platelet 235 10 3/mcL Normal 150-450 [facility] Comment on above: Performed By: #### A CARLOS, RFP, ADIFF, FERR, CBC, GFR, URIC, FES #### [place] [address] #### PTH #### [place] [address] Platelet mean volume (Bld) [Entitic vol] 7.7 fL Normal 6.4-10.5 [facility] Comment on above: Performed By: #### A CARLOS, RFP, ADIFF, FERR, CBC, GFR, URIC, FES #### [place] [address] #### PTH #### [place] [address] RBC 5.36 10 6/mcL Normal 4.50-6.00 [facility] Comment on above: Performed By: #### A CARLOS, RFP, ADIFF, FERR, CBC, GFR, URIC, FES #### [place] [address] #### PTH #### [address] [address] WBC 7.8 10 3/mcL Normal 4.5-10.8 [facility] Comment on above: Performed By: #### A CARLOS, RFP, ADIFF, FERR, CBC, GFR, URIC, FES #### [address] [address] #### PTH #### [place] [address] Kelly 06-21-2024 Ferritin [Mass/Vol] 118.0 ng/mL Normal 26.0-388.0 [facility] Comment on above: Performed By: #### A CARLOS, RFP, ADIFF, FERR, CBC, GFR, URIC, FES #### [place] [address] #### PTH #### [place] [address] FESon 06-21-2024 Iron [Mass/Vol] 103 ug/dL Normal 65-175 [facility] Comment on above: Performed By: #### G FR, BMP, PSA, A1C #### [address] [address] Iron Sat 38 % Normal [facility] Comment on above: Performed By: #### G FR, BMP, PSA, A1C #### [address] [address] TIBC 268 mcg/dL Normal 250-450 [facility] Comment on above: Performed By: #### G FR, BMP, PSA, A1C #### [address] [address] LABORATORYOrdered By: SYSTEM SYSTEM on 06-21-2024 Albumin BCP dye [Mass/Vol] 3.8 G/dL Normal 3.4 - 4.8 G/dL AO ADM SS Basophils (Bld) [#/Vol] 0.0 103/mcL Normal 0.0 - 0.2 10^3/mcL AO Workflow SS Basophils/100 WBC (Bld) 0.5 % Normal 0.0 - 2.5 % AO Workflow SS Calcium [Mass/Vol] 9.1 mg/dL Normal 8.4 - 10. 2 mg/dL AO ADM SS Chloride [Moles/Vol] 101 mmol/L Normal 98 - 10 7 mmol/L AO ADM SS CO2 [Moles/Vol] 29 mmol/L Normal 23 - 31 mmol/L AO ADM SS Creatinine [Mass/Vol] 1.16 mg/dL Normal 0.70 - 1.30 mg/dL AO ADM SS Comment on above: Interpretive Data: T esting performed on Siemens Dimension EXL analyzer using a modified kinetic Faiza technique. Electrolyte Balance 7.0 mEq/L Normal 4.0 - 15 .0 mEq/L AO ADM SS Eosinophil, Absolute 0.1 103/mcL Normal 0.0 - 0 .7 10^3/mcL AO Workflow SS Eosinophils/100 WBC (Bld) 1.8 % Normal 0.0 - 7.0 % AO Workflow SS Erythrocyte distribution width (RBC) [Ratio] 13.4 % Normal 11.5 - 15.5 % AO Workflow SS Ferritin [Mass/Vol] 118.0 ng/mL Normal 26.0 - 3 88.0 ng/mL AO ADM SS GFR/1.73 sq M.predicted among blacks MDRD (S/P/Bld) [Vol rate/Area] 77 ml/min/1.73sqm Invalid Interpretation Code AO Chemistry S Comment on above: Interpretive Data: GFR Population mean for , Non- Americans Ages 20-29 = 116 mL/min/1.73 sq.m. Ages 30-39 = 107 mL/min/1.73 sq.m. Ages 40-49 = 99 mL/min/1.73 sq.m. Ages 50-59 = 93 mL/min/1.73 sq.m. Ages 60-69 = 85 mL/min/1.73 sq.m. Ages 70+ = 75 mL/min/1.73 sq.m. Chronic Kidney Disease: Less than 60 mL/min/1.73 square meters End Stage Renal Disease: Less than 15 mL/min/1.73 square meters GFR/1.73 sq M.predicted among non-blacks MDRD (S/P/Bld) [Vol rate/Area] 64 ml/min/1.73sqm Invalid Interpretation Code AO Chemistry S Comment on above: Interpretive Data: GFR Population mean for , Non- Americans Ages 20-29 = 116 mL/min/1.73 sq.m. Ages 30-39 = 107 mL/min/1.73 sq.m. Ages 40-49 = 99 mL/min/1.73 sq.m. Ages 50-59 = 93 mL/min/1.73 sq.m. Ages 60-69 = 85 mL/min/1.73 sq.m. Ages 70+ = 75 mL/min/1.73 sq.m. Chronic Kidney Disease: Less than 60 mL/min/1.73 square meters End Stage Renal Disease: Less than 15 mL/min/1.73 square meters Glucose [Mass/Vol] 213 mg/dL High 80 - 115 mg/dL AO ADM SS Hematocrit (Bld) [Volume fraction] 50.1 % Normal 40.0 - 52.0 % AO Workflow SS Hemoglobin (Bld) [Mass/Vol] 16.8 G/dL Normal 13.0 - 17.5 G/dL AO Workflow SS Iron [Mass/Vol] 103 ug/dL Normal 65 - 175 mcg/dL AO ADM SS Iron binding capacity [Mass/Vol] 268 mcg/dL Normal 250 - 450 mcg/dL AO ADM SS Iron Sat 38 % Invalid Interpretation Code AO ADM SS Lymphocytes (Bld) [#/Vol] 1.7 103/mcL Normal 0.9 - 4.3 10^3/mcL AO Workflow SS Lymphocytes/100 WBC (Bld) 21.7 % Normal 20.0 - 40.0 % AO Workflow SS MCH (RBC) [Entitic mass] 31.3 pg Normal 27.0 - 33.0 pg AO Workflow SS MCHC 33.5 G/dL Normal 32.0 - 36.0 G/dL AO Workflow SS MCV (RBC) [Entitic vol] 93.3 fL Normal 81.0 - 100.0 fL AO Workflow SS Monocytes (Bld) [#/Vol] 0.4 103/mcL Normal 0.1 - 1.4 10^3/mcL AO Workflow SS Monocytes/100 WBC (Bld) 5.6 % Normal 2.0 - 13.0 % AO Workflow SS Neutrophils (Bld) [#/Vol] 5.5 103/mcL Normal 2.3 - 8.1 10^3/mcL AO Workflow SS Neutrophils/100 WBC (Bld) 70.4 % Normal 50.0 - 75.0 % AO Workflow SS Parathyrin.intact [Mass/Vol] 26.7 pg/mL Normal 18.5 - 88.0 pg/mL AH ADM SS Phosphate [Mass/Vol] 3.0 mg/dL Normal 2.3 - 4 .1 mg/dL AO ADM SS Platelet mean volume (Bld) [Entitic vol] 7.7 fL Normal 6.4 - 10.5 fL AO Workflow SS Platelets (Bld) [#/Vol] 235 103/mcL Normal 150 - 450 10^3/mcL AO Workflow SS Potassium [Moles/Vol] 4.7 mmol/L Normal 3.5 - 5.1 mmol/L AO ADM SS RBC (Bld) [#/Vol] 5.36 106/mcL Normal 4.50 - 6.0 0 10^6/mcL AO Workflow SS Sodium [Moles/Vol] 137 mmol/L Normal 136 - 145 mmol/L AO ADM SS Urea nitrogen [Mass/Vol] 18 mg/dL Normal 7 - 18 mg/dL AO ADM SS Urea nitrogen/Creatinine [Mass ratio] 16 ratio Normal 7 - 27 ratio AO ADM SS Uric Acid Lvl 4.9 mg/dL Normal 3.5 - 7.2 mg/dL AO ADM SS WBC (Bld) [#/Vol] 7.8 103/mcL Normal 4.5 - 10.8 10^3/mcL AO Workflow SS LABORATORYOrdered By: Cj Allison on 06-21-2024 Creatinine (U) [Mass/Vol] 62.8 mg/dL Normal 39.0 - 259.0 mg/dL AO ADM SS Protein (U) [Mass/Vol] mg/dL Normal 0 - 11 mg/dL AO ADM SS U Ratio Prot/Creat Unable to Calculate Invalid Interpretation Code AO ADM SS Comment on above: Result Comment: Unab le to calculate this test result accurately. Results used to calculate this test are outside the reportable range. PTHon 06-21-2024 PTH, Intact 26.7 pg/mL Normal 18.5-88.0 [facility] Comment on above: Performed By: #### G FR, BMP, PSA, A1C #### [address] [address] RFPon 06-21-2024 Albumin Level 3.8 G/dL Normal 3.4-4.8 [facility] Comment on above: Performed By: #### G FR, BMP, PSA, A1C #### [place] [address] BUN/Creatinine Ratio 16 ratio Normal 7-27 [facility] Comment on above: Performed By: #### G FR, BMP, PSA, A1C #### [address] [address] Calcium [Mass/Vol] 9.1 mg/dL Normal 8.4-10.2 [facility] Comment on above: Performed By: #### G FR, BMP, PSA, A1C #### [place] [address] Chloride [Moles/Vol] 101 mmol/L Normal 98-107 [facility] Comment on above: Performed By: #### G FR, BMP, PSA, A1C #### [place] [address] CO2 [Moles/Vol] 29 mmol/L Normal 23-31 [facility] Comment on above: Performed By: #### G FR, BMP, PSA, A1C #### [place] [address] Creatinine [Mass/Vol] 1.16 mg/dL Normal 0.70-1.[address] [facility] Comment on above: Result Comment: Test ing performed on Siemens Dimension EXL analyzer using a modified kinetic Faiza technique. Performed By: #### G FR, BMP, PSA, A1C #### [place] [id number] Electrolyte Balance 7.0 mEq/L Normal 4.0-15.0 [facility] Comment on above: Performed By: #### G FR, BMP, PSA, A1C #### [place] [address] Glucose [Mass/Vol] 213 mg/dL High 80-115 [facility] Comment on above: Performed By: #### G FR, BMP, PSA, A1C #### [place] [address] Phosphate [Mass/Vol] 3.0 mg/dL Normal 2.3-4.1 [facility] Comment on above: Performed By: #### G FR, BMP, PSA, A1C #### [address] [address] Potassium [Moles/Vol] 4.7 mmol/L Normal 3.5-5.[address] [facility] Comment on above: Performed By: #### G FR, BMP, PSA, A1C #### [address] [address] Sodium [Moles/Vol] 137 mmol/L Normal 136-145 [facility] Comment on above: Performed By: #### G FR, BMP, PSA, A1C #### [address] [address] Urea nitrogen [Mass/Vol] 18 mg/dL Normal 7-18 [facility] Comment on above: Performed By: #### G FR, BMP, PSA, A1C #### [address] [address] RPCURon 06-21-2024 U Creatinine 62.8 mg/dL Normal 39.0-259.0 [facility] Comment on above: Performed By: #### R PCUR #### [address] [address] U Protein <6 Normal 0-11 [facility] Comment on above: Performed By: #### R PCUR #### [address] [address] U Ratio Prot/Creat Unable to Calculate Normal [facility] Comment on above: Result Comment: Unab le to calculate this test result accurately. Results used to calculate this test are outside the reportable range. Performed By: #### R PCUR #### [address] [address] URICon 06-21-2024 Uric Acid Lvl 4.9 mg/dL Normal 3.5-7.2 [facility] Comment on above: Performed By: #### A CARLOS, RFP, ADIFF, FERR, CBC, GFR, URIC, FES #### [address] [address] #### PTH #### [address] [address] .Auto Diffon 02-02-2024 Basophil, Absolute 0.0 10 3/mcL Normal 0.0-0.2 [facility] ([place]) Comment on above: Performed By: #### A CARLOS, ADIFF, A1C, CMP, LIPID, GFR, CBC #### [address] [address] Basophils/100 WBC (Bld) 0.6 % Normal 0.0-2.5 [facility] ([place]) Comment on above: Performed By: #### A CARLOS, ADIFF, A1C, CMP, LIPID, GFR, CBC #### [address] [address] Eosinophil, Absolute 0.2 10 3/mcL Normal 0.0-0.4 [facility] ([place]) Comment on above: Performed By: #### A CARLOS, ADIFF, A1C, CMP, LIPID, GFR, CBC #### [address] [address] Eosinophils/100 WBC (Bld) 2.0 % Normal 0.0-7.0 [facility] ([place]) Comment on above: Performed By: #### A CARLOS, ADIFF, A1C, CMP, LIPID, GFR, CBC #### [address] [address] Lymphocyte, Absolute 1.8 10 3/mcL Normal 0.8-3.9 [facility] ([place]) Comment on above: Performed By: #### A CARLOS, ADIFF, A1C, CMP, LIPID, GFR, CBC #### [address] [address] Lymphocytes/100 WBC (Bld) 22.1 % Normal 10.0-50.0 [facility] ([place]) Comment on above: Performed By: #### A CARLOS, ADIFF, A1C, CMP, LIPID, GFR, CBC #### [address] [address] Monocyte, Absolute 0.5 10 3/mcL Normal 0.2-1.0 [facility] ([place]) Comment on above: Performed By: #### A CARLOS, ADIFF, A1C, CMP, LIPID, GFR, CBC #### [address] [address] Monocytes/100 WBC (Bld) 6.9 % Normal 1.7-13.0 [facility] ([place] Comment on above: Performed By: #### A CARLOS, ADIFF, A1C, CMP, LIPID, GFR, CBC #### [address] [address] Neutrophils/100 WBC (Bld) 68.4 % Normal 37.0-80.0 [facility] ([place] Comment on above: Performed By: #### A CARLOS, ADIFF, A1C, CMP, LIPID, GFR, CBC #### [address] [address] .GFRon 02-02-2024 GFR 76 ml/min/1.73sqm Normal [facility] ([place] Comment on above: Result Comment: GFR Population mean for , Non- Americans Ages 20-29 = 116 mL/min/1.73 sq.m. Ages 30-39 = 107 mL/min/1.73 sq.m. Ages 40-49 = 99 mL/min/1.73 sq.m. Ages 50-59 = 93 mL/min/1.73 sq.m. Ages 60-69 = 85 mL/min/1.73 sq.m. Ages 70+ = 75 mL/min/1.73 sq.m. Chronic Kidney Disease: Less than 60 mL/min/1.73 square meters End Stage Renal Disease: Less than 15 mL/min/1.73 square meters Performed By: #### A CARLOS, ADIFF, A1C, CMP, LIPID, GFR, CBC #### [address] [address] GFR Non- 63 ml/min/1.73sqm Normal [facility] ([place] Comment on above: Result Comment: GFR Population mean for , Non- Americans Ages 20-29 = 116 mL/min/1.73 sq.m. Ages 30-39 = 107 mL/min/1.73 sq.m. Ages 40-49 = 99 mL/min/1.73 sq.m. Ages 50-59 = 93 mL/min/1.73 sq.m. Ages 60-69 = 85 mL/min/1.73 sq.m. Ages 70+ = 75 mL/min/1.73 sq.m. Chronic Kidney Disease: Less than 60 mL/min/1.73 square meters End Stage Renal Disease: Less than 15 mL/min/1.73 square meters Performed By: #### A CARLOS, ADIFF, A1C, CMP, LIPID, GFR, CBC #### [address] [address] .NEUABSon 02-02-2024 Neutrophil, Absolute 5.4 10 3/mcL Normal 2.9-6.2 [facility] ([place]) Comment on above: Performed By: #### A CARLOS, ADIFF, A1C, CMP, LIPID, GFR, CBC #### [address] [address] A1Con 02-02-2024 HbA1c (Bld) [Mass fraction] 6.6 % High 4.3-6.4 [facility] ([place] Comment on above: Performed By: #### A CARLOS, ADIFF, A1C, CMP, LIPID, GFR, CBC #### [address] [address] CBCon 02-02-2024 Erythrocyte distribution width (RBC) [Ratio] 13.1 % Normal 11.5-14.5 [facility] ([place] Comment on above: Performed By: #### A CARLOS, ADIFF, A1C, CMP, LIPID, GFR, CBC #### [address] [address] Hematocrit (Bld) [Volume fraction] 46.0 % Normal 42.0-52.0 [facility] ([place] Comment on above: Performed By: #### A CARLOS, ADIFF, A1C, CMP, LIPID, GFR, CBC #### [address] [address] Hgb 16.2 G/dL Normal 14.0-18.0 [facility] ([place] Comment on above: Performed By: #### A CARLOS, ADIFF, A1C, CMP, LIPID, GFR, CBC #### [address] [address] MCH (RBC) [Entitic mass] 31.5 pg High 27.0-31.2 [facility] ([place] Comment on above: Performed By: #### A CARLOS, ADIFF, A1C, CMP, LIPID, GFR, CBC #### [address] [address] MCHC 35.2 G/dL Normal 31.8-35.4 [facility] ([place] Comment on above: Performed By: #### A CARLOS, ADIFF, A1C, CMP, LIPID, GFR, CBC #### [address] [address] MCV (RBC) [Entitic vol] 89.7 fL Normal 80.0-94.0 [facility] ([place] Comment on above: Performed By: #### A CARLOS, ADIFF, A1C, CMP, LIPID, GFR, CBC #### [address] [address] Platelet 272 10 3/mcL Normal 130-400 [facility] ([place] Comment on above: Performed By: #### A CARLOS, ADIFF, A1C, CMP, LIPID, GFR, CBC #### [address] [address] Platelet mean volume (Bld) [Entitic vol] 7.5 fL Normal 7.4-10.4 [facility] ([place] Comment on above: Performed By: #### A CARLOS, ADIFF, A1C, CMP, LIPID, GFR, CBC #### [address] [address] RBC 5.13 10 6/mcL Normal 4.04-6.13 [facility] ([place] Comment on above: Performed By: #### A CARLOS, ADIFF, A1C, CMP, LIPID, GFR, CBC #### [address] [address] WBC 7.9 10 3/mcL Normal 4.6-10.8 [facility] ([place] Comment on above: Performed By: #### A CARLOS, ADIFF, A1C, CMP, LIPID, GFR, CBC #### [address] [address] CMPon 02-02-2024 Albumin Level 4.0 G/dL Normal 3.4-4.8 [facility] ([place] Comment on above: Performed By: #### A CARLOS, ADIFF, A1C, CMP, LIPID, GFR, CBC #### [address] [address] Albumin/Globulin [Mass ratio] 1.1 {ratio} Normal 1.1-2.5 [facility] ([place] Comment on above: Performed By: #### A CARLOS, ADIFF, A1C, CMP, LIPID, GFR, CBC #### [address] [address] ALP [Catalytic activity/Vol] 68 U/L Normal 40-135 [facility] ([place] Comment on above: Performed By: #### A CARLOS, ADIFF, A1C, CMP, LIPID, GFR, CBC #### [address] [address] ALT [Catalytic activity/Vol] 53 U/L Normal 16-63 [facility] ([place] Comment on above: Performed By: #### A CARLOS, ADIFF, A1C, CMP, LIPID, GFR, CBC #### [address] [address] AST [Catalytic activity/Vol] 26 U/L Normal 10-40 [facility] ([place] Comment on above: Performed By: #### A CARLOS, ADIFF, A1C, CMP, LIPID, GFR, CBC #### [address] [address] Bili Total 0.5 mg/dL Normal 0.2-1.0 [facility] ([place]) Comment on above: Result Comment: Use of this assay is not recommended for patients undergoing treatment with eltrombopag due to the potential for falsely elevated results. Performed By: #### A CARLOS, ADIFF, A1C, CMP, LIPID, GFR, CBC #### [address] [address] BUN/Creatinine Ratio 16 ratio Normal 7-27 [facility] ([place] Comment on above: Performed By: #### A CARLOS, ADIFF, A1C, CMP, LIPID, GFR, CBC #### [address] [address] Calcium [Mass/Vol] 9.3 mg/dL Normal 8.4-10.2 [facility] ([place]) Comment on above: Performed By: #### A CARLOS, ADIFF, A1C, CMP, LIPID, GFR, CBC #### [address] [address] Chloride [Moles/Vol] 104 mmol/L Normal 98-107 [facility] ([place] Comment on above: Performed By: #### A CARLOS, ADIFF, A1C, CMP, LIPID, GFR, CBC #### [address] [address] CO2 [Moles/Vol] 28 mmol/L Normal 23-31 [facility] ([place] Comment on above: Performed By: #### A CARLOS, ADIFF, A1C, CMP, LIPID, GFR, CBC #### [address] [address] Creatinine [Mass/Vol] 1.18 mg/dL Normal 0.70-1.30 [facility] ([place]) Comment on above: Performed By: #### A CARLOS, ADIFF, A1C, CMP, LIPID, GFR, CBC #### [address] [address] Electrolyte Balance 10.0 mEq/L Normal 4.0-15.0 [facility] ([place]) Comment on above: Performed By: #### A CARLOS, ADIFF, A1C, CMP, LIPID, GFR, CBC #### [address] [address] Globulin 3.6 G/dL Normal [facility] ([place] Comment on above: Performed By: #### A CARLOS, ADIFF, A1C, CMP, LIPID, GFR, CBC #### [address] [address] Glucose [Mass/Vol] 139 mg/dL High 80-115 [facility] ([place]) Comment on above: Performed By: #### A CARLOS, ADIFF, A1C, CMP, LIPID, GFR, CBC #### [address] [address] Potassium [Moles/Vol] 4.7 mmol/L Normal 3.5-5.1 [facility] ([place]) Comment on above: Performed By: #### A CARLOS, ADIFF, A1C, CMP, LIPID, GFR, CBC #### [address] [address] Sodium [Moles/Vol] 142 mmol/L Normal 136-145 [facility]) Comment on above: Performed By: #### A CARLOS, ADIFF, A1C, CMP, LIPID, GFR, CBC #### [address] [address] Total Protein 7.6 G/dL Normal 6.4-8.2 [facility]) Comment on above: Performed By: #### A CARLOS, ADIFF, A1C, CMP, LIPID, GFR, CBC #### [address] [address] Urea nitrogen [Mass/Vol] 19 mg/dL High 7-18 [facility]) Comment on above: Performed By: #### A CARLOS, ADIFF, A1C, CMP, LIPID, GFR, CBC #### [address] [address] LABORATORYOrdered By: SYSTEM SYSTEM on 02-02-2024 Albumin BCP dye [Mass/Vol] 4.0 G/dL Normal 3.4 - 4.8 G/dL AO ADM SS Albumin/Globulin [Mass ratio] 1.1 {ratio} Normal 1.1 - 2.5 ratio AO ADM SS ALP [Catalytic activity/Vol] 68 U/L Normal 40 - 135 U/L AO ADM SS ALT With P-5'-P [Catalytic activity/Vol] 53 U/L Normal 16 - 63 U/L AO ADM SS AST With P-5'-P [Catalytic activity/Vol] 26 U/L Normal 10 - 40 U/L AO ADM SS Basophil, Absolute 0.0 103/mcL Normal 0.0 - 0.2 10^3/mcL AO Workflow SS Basophils/100 WBC (Bld) 0.6 % Normal 0.0 - 2.5 % AO Workflow SS Bilirubin [Mass/Vol] 0.5 mg/dL Normal 0.2 - 1 .0 mg/dL AO ADM SS Comment on above: Interpretive Data: U se of this assay is not recommended for patients undergoing treatment with eltrombopag due to the potential for falsely elevated results. Calcium [Mass/Vol] 9.3 mg/dL Normal 8.4 - 10. 2 mg/dL AO ADM SS Chloride [Moles/Vol] 104 mmol/L Normal 98 - 10 7 mmol/L AO ADM SS CO2 [Moles/Vol] 28 mmol/L Normal 23 - 31 mmol/L AO ADM SS Creatinine [Mass/Vol] 1.18 mg/dL Normal 0.70 - 1.30 mg/dL AO ADM SS Electrolyte Balance 10.0 mEq/L Normal 4.0 - 15 .0 mEq/L AO ADM SS Eosinophil, Absolute 0.2 103/mcL Normal 0.0 - 0 .4 10^3/mcL AO Workflow SS Eosinophils/100 WBC (Bld) 2.0 % Normal 0.0 - 7.0 % AO Workflow SS Erythrocyte distribution width (RBC) [Ratio] 13.1 % Normal 11.5 - 14.5 % AO Workflow SS GFR/1.73 sq M.predicted among blacks MDRD (S/P/Bld) [Vol rate/Area] 76 ml/min/1.73sqm Invalid Interpretation Code AO Chemistry S Comment on above: Interpretive Data: GFR Population mean for , Non- Americans Ages 20-29 = 116 mL/min/1.73 sq.m. Ages 30-39 = 107 mL/min/1.73 sq.m. Ages 40-49 = 99 mL/min/1.73 sq.m. Ages 50-59 = 93 mL/min/1.73 sq.m. Ages 60-69 = 85 mL/min/1.73 sq.m. Ages 70+ = 75 mL/min/1.73 sq.m. Chronic Kidney Disease: Less than 60 mL/min/1.73 square meters End Stage Renal Disease: Less than 15 mL/min/1.73 square meters GFR/1.73 sq M.predicted among non-blacks MDRD (S/P/Bld) [Vol rate/Area] 63 ml/min/1.73sqm Invalid Interpretation Code AO Chemistry S Comment on above: Interpretive Data: GFR Population mean for , Non- Americans Ages 20-29 = 116 mL/min/1.73 sq.m. Ages 30-39 = 107 mL/min/1.73 sq.m. Ages 40-49 = 99 mL/min/1.73 sq.m. Ages 50-59 = 93 mL/min/1.73 sq.m. Ages 60-69 = 85 mL/min/1.73 sq.m. Ages 70+ = 75 mL/min/1.73 sq.m. Chronic Kidney Disease: Less than 60 mL/min/1.73 square meters End Stage Renal Disease: Less than 15 mL/min/1.73 square meters Globulin 3.6 G/dL Invalid Interpretation Code AO ADM SS Glucose [Mass/Vol] 139 mg/dL High 80 - 115 mg/dL AO ADM SS HbA1c (Bld) [Mass fraction] 6.6 % High 4.3 - 6.4 % AO ADM SS Hematocrit (Bld) [Volume fraction] 46.0 % Normal 42.0 - 52.0 % AO Workflow SS Hemoglobin (Bld) [Mass/Vol] 16.2 G/dL Normal 14.0 - 18.0 G/dL AO Workflow SS Lymphocyte, Absolute 1.8 103/mcL Normal 0.8 - 3 .9 10^3/mcL AO Workflow SS Lymphocytes/100 WBC (Bld) 22.1 % Normal 10.0 - 50.0 % AO Workflow SS MCH (RBC) [Entitic mass] 31.5 pg High 27.0 - 31.2 pg AO Workflow SS MCHC 35.2 G/dL Normal 31.8 - 35.4 G/dL AO Workflow SS MCV (RBC) [Entitic vol] 89.7 fL Normal 80.0 - 94.0 fL AO Workflow SS Monocyte, Absolute 0.5 103/mcL Normal 0.2 - 1.0 10^3/mcL AO Workflow SS Monocytes/100 WBC (Bld) 6.9 % Normal 1.7 - 13.0 % AO Workflow SS Neutrophil, Absolute 5.4 103/mcL Normal 2.9 - 6 .2 10^3/mcL AO Workflow SS Neutrophils/100 WBC (Bld) 68.4 % Normal 37.0 - 80.0 % AO Workflow SS Platelet mean volume (Bld) [Entitic vol] 7.5 fL Normal 7.4 - 10.4 fL AO Workflow SS Platelets (Bld) [#/Vol] 272 103/mcL Normal 130 - 400 10^3/mcL AO Workflow SS Potassium [Moles/Vol] 4.7 mmol/L Normal 3.5 - 5.1 mmol/L AO ADM SS Protein [Mass/Vol] 7.6 G/dL Normal 6.4 - 8.2 G/dL AO ADM SS RBC (Bld) [#/Vol] 5.13 106/mcL Normal 4.04 - 6.1 3 10^6/mcL AO Workflow SS Sodium [Moles/Vol] 142 mmol/L Normal 136 - 145 mmol/L AO ADM SS Urea nitrogen [Mass/Vol] 19 mg/dL High 7 - 18 mg/dL AO ADM SS Urea nitrogen/Creatinine [Mass ratio] 16 ratio Normal 7 - 27 ratio AO ADM SS WBC (Bld) [#/Vol] 7.9 103/mcL Normal 4.6 - 10.8 10^3/mcL AO Workflow SS LABORATORYOrdered By: Florencia Boggs on 02-02-2024 Cholesterol [Mass/Vol] 168 mg/dL Normal 0 - 200 mg/dL AO ADM SS Comment on above: Interpretive Data: C holesterol Reference Interval: Less than 200 Desirable 200-239 Borderline high risk 240 and above High risk Cholesterol in HDL [Mass/Vol] 33 mg/dL Low 40 - 60 mg/dL AO ADM SS Cholesterol in LDL [Mass/Vol] 89 mg/dL Normal 0 - 130 mg/dL AO ADM SS Triglyceride [Mass/Vol] 228 mg/dL High 0 - 150 mg/dL AO ADM SS Comment on above: Interpretive Data: T riglyceride Reference Interval: Less than 150 Normal 150-199 Borderline high risk 200-499 High risk 500 or higher Very high risk LIPIDon 02-02-2024 Cholesterol [Mass/Vol] 168 mg/dL Normal 0-200 [facility] ([place]) Comment on above: Result Comment: Chol esterol Reference Interval: Less than 200 Desirable 200-239 Borderline high risk 240 and above High risk Performed By: #### A CARLOS, ADIFF, A1C, CMP, LIPID, GFR, CBC #### [place] [address] [place], [place] [address] Cholesterol in HDL [Mass/Vol] 33 mg/dL Low 40-60 [facility] ([place]) Comment on above: Performed By: #### A CARLOS, ADIFF, A1C, CMP, LIPID, GFR, CBC #### [place] [address] [place], [place] [address] Cholesterol in LDL [Mass/Vol] 89 mg/dL Normal 0-130 [facility] ([place] Comment on above: Performed By: #### A CARLOS, ADIFF, A1C, CMP, LIPID, GFR, CBC #### [place] [address] [place], [place] [address] Triglyceride [Mass/Vol] 228 mg/dL High 0-150 [facility] ([place] Comment on above: Result Comment: Trig lyceride Reference Interval: Less than 150 Normal 150-199 Borderline high risk 200-499 High risk 500 or higher Very high risk Performed By: #### A CARLOS, ADIFF, A1C, CMP, LIPID, GFR, CBC #### [place] [address] [place], [place] [address] Basophil percentageOrdered B y: Supriya Montes De Oca on 01-05-2024 Basophil percentage < 0.01 ng/mL 0.0-4.0 [facility] Comment on above: This test was perfor med using the TPSA assay method for theDuXplore chemistry system. Values obtained with differentassay methods cannot be used interchangably.When changing PSA assays in the course of monitoring apatient, additional sequential testing should be carriedout to confirm baseline values. PSA,Total- Diagnosticon 12-15 PSA, DIAGNOSTIC < 0.01 Normal 0.0-4.0 [facility] Comment on above: Result Comment: This test was performed using the TPSA assay method for the [employer] chemistry system. Values obtained with different assay methods cannot be used interchangably. When changing PSA assays in the course of monitoring a patient, additional sequential testing should be carried out to confirm baseline values. Performed By: #### L [phone] #### [facility] [address] [place], [address] .Auto Diffon 12-16-2023 Basophil, Absolute 0.0 10 3/mcL Normal 0.0-0.2 [facility] ([place]) Comment on above: Performed By: #### F ERR, ANEU, RFP, FES, GFR, CBC, ADIFF, URIC ####[place] [address]#### PTH ####[address] [address] Basophils/100 WBC (Bld) 0.6 % Normal 0.0-2.5 [facility] ([place]) Comment on above: Performed By: #### F ERR, ANEU, RFP, FES, GFR, CBC, ADIFF, URIC ####[place] [address]#### PTH ####[address] [address] Eosinophil, Absolute 0.2 10 3/mcL Normal 0.0-0.4 [facility] ([place]) Comment on above: Performed By: #### F ERR, ANEU, RFP, FES, GFR, CBC, ADIFF, URIC ####[place] [address]#### PTH ####[address] [address] Eosinophils/100 WBC (Bld) 1.9 % Normal 0.0-7.0 [facility] ([place]) Comment on above: Performed By: #### F ERR, ANEU, RFP, FES, GFR, CBC, ADIFF, URIC ####[place] [address]#### PTH ####[address] [address] Lymphocyte, Absolute 1.6 10 3/mcL Normal 0.8-3.9 [facility] ([place]) Comment on above: Performed By: #### F ERR, ANEU, RFP, FES, GFR, CBC, ADIFF, URIC ####[place] [address]#### PTH ####[address] [address] Lymphocytes/100 WBC (Bld) 20.1 % Normal 10.0-50.0 [facility] ([place]) Comment on above: Performed By: #### F ERR, ANEU, RFP, FES, GFR, CBC, ADIFF, URIC ####[place] [address]#### PTH ####[address] [address] Monocyte, Absolute 0.4 10 3/mcL Normal 0.2-1.0 [facility] ([place] Comment on above: Performed By: #### F ERR, ANEU, RFP, FES, GFR, CBC, ADIFF, URIC ####[place] [address]#### PTH ####[address] [address] Monocytes/100 WBC (Bld) 5.4 % Normal 1.7-13.0 [facility] ([place] Comment on above: Performed By: #### F ERR, ANEU, RFP, FES, GFR, CBC, ADIFF, URIC ####[place] [address]#### PTH ####[address] [address] Neutrophils/100 WBC (Bld) 72.0 % Normal 37.0-80.0 [facility] ([place] Comment on above: Performed By: #### F ERR, ANEU, RFP, FES, GFR, CBC, ADIFF, URIC ####[place] [address]#### PTH ####[address] [address] .GFRon 12-16-2023 GFR 73 ml/min/1.73sqm Normal [facility] ([place]) Comment on above: Result Comment: GFR Population mean for , Non- Americans Ages 20-29 = 116 mL/min/1.73 sq.m. Ages 30-39 = 107 mL/min/1.73 sq.m. Ages 40-49 = 99 mL/min/1.73 sq.m. Ages 50-59 = 93 mL/min/1.73 sq.m. Ages 60-69 = 85 mL/min/1.73 sq.m. Ages 70+ = 75 mL/min/1.73 sq.m. Chronic Kidney Disease: Less than 60 mL/min/1.73 square meters End Stage Renal Disease: Less than 15 mL/min/1.73 square meters Performed By: #### F ERR, ANEU, RFP, FES, GFR, CBC, ADIFF, URIC ####[id number] [place] [address]#### PTH ####[place] [address] GFR Non- 60 ml/min/1.73sqm Normal [facility] ([place]) Comment on above: Result Comment: GFR Population mean for , Non- Americans Ages 20-29 = 116 mL/min/1.73 sq.m. Ages 30-39 = 107 mL/min/1.73 sq.m. Ages 40-49 = 99 mL/min/1.73 sq.m. Ages 50-59 = 93 mL/min/1.73 sq.m. Ages 60-69 = 85 mL/min/1.73 sq.m. Ages 70+ = 75 mL/min/1.73 sq.m. Chronic Kidney Disease: Less than 60 mL/min/1.73 square meters End Stage Renal Disease: Less than 15 mL/min/1.73 square meters Performed By: #### F ERR, ANEU, RFP, FES, GFR, CBC, ADIFF, URIC ####[id number] [place], [place] [address]#### PTH ####[place] [address] .NEUABSon 12-16-2023 Neutrophil, Absolute 5.8 10 3/mcL Normal 2.9-6.2 [facility] ([place]) Comment on above: Performed By: #### F ERR, ANEU, RFP, FES, GFR, CBC, ADIFF, URIC ####[address] [address]#### PTH ####[address] [address] CBCon 12-16-2023 Erythrocyte distribution width (RBC) [Ratio] 13.1 % Normal 11.5-14.5 [facility] ([place]) Comment on above: Performed By: #### F ERR, ANEU, RFP, FES, GFR, CBC, ADIFF, URIC #### [place] [address] #### PTH #### [place] [address] Hematocrit (Bld) [Volume fraction] 47.9 % Normal 42.0-52.0 [facility] ([place]) Comment on above: Performed By: #### F ERR, ANEU, RFP, FES, GFR, CBC, ADIFF, URIC #### [place] [address] #### PTH #### [place] [address] Hgb 16.3 G/dL Normal 14.0-18.0 [facility] ([place] Comment on above: Performed By: #### F ERR, ANEU, RFP, FES, GFR, CBC, ADIFF, URIC #### [place] [address] #### PTH #### [place] [address] MCH (RBC) [Entitic mass] 31.4 pg High 27.0-31.2 [facility] ([place]) Comment on above: Performed By: #### F ERR, ANEU, RFP, FES, GFR, CBC, ADIFF, URIC #### [place] [address] #### PTH #### [place] [address] MCHC 34.1 G/dL Normal 31.8-35.4 [facility] ([place]) Comment on above: Performed By: #### F ERR, ANEU, RFP, FES, GFR, CBC, ADIFF, URIC #### [place] [address] #### PTH #### [place] [address] MCV (RBC) [Entitic vol] 92.0 fL Normal 80.0-94.0 [facility] ([place] Comment on above: Performed By: #### F ERR, ANEU, RFP, FES, GFR, CBC, ADIFF, URIC #### [place] [address] #### PTH #### [place] [address] Platelet 277 10 3/mcL Normal 130-400 [facility] ([place]) Comment on above: Performed By: #### F ERR, ANEU, RFP, FES, GFR, CBC, ADIFF, URIC #### [place] [address] #### PTH #### [place] [address] Platelet mean volume (Bld) [Entitic vol] 7.7 fL Normal 7.4-10.4 [facility] ([place] Comment on above: Performed By: #### F ERR, ANEU, RFP, FES, GFR, CBC, ADIFF, URIC #### [place] [address] #### PTH #### [place] [address] RBC 5.21 10 6/mcL Normal 4.04-6.13 [facility] ([place] Comment on above: Performed By: #### F ERR, ANEU, RFP, FES, GFR, CBC, ADIFF, URIC #### [place] [address] #### PTH #### [place] [address] WBC 8.0 10 3/mcL Normal 4.6-10.8 [facility] ([place] Comment on above: Performed By: #### F ERR, ANEU, RFP, FES, GFR, CBC, ADIFF, URIC #### [address] [address] #### PTH #### [place] [address] Kelly 12-16-2023 Ferritin [Mass/Vol] 154.0 ng/mL Normal 26.0-388.0 [facility] ([place]) Comment on above: Performed By: #### F ERR, ANEU, RFP, FES, GFR, CBC, ADIFF, URIC ####[place] [address]#### PTH ####[place] [address] FESon 12-16-2023 Iron [Mass/Vol] 107 ug/dL Normal 65-175 [facility] ([place] Comment on above: Performed By: #### F ERR, ANEU, RFP, FES, GFR, CBC, ADIFF, URIC ####[place] [address]#### PTH ####[place] [address] Iron Sat 41 % Normal [facility] ([place] Comment on above: Performed By: #### F ERR, ANEU, RFP, FES, GFR, CBC, ADIFF, URIC ####[place] [address]#### PTH ####[place] [address] TIBC 263 mcg/dL Normal 250-450 [facility] ([place] Comment on above: Performed By: #### F ERR, ANEU, RFP, FES, GFR, CBC, ADIFF, URIC ####[place] [address]#### PTH ####[place] [address] LABORATORYOrdered By: SYSTEM SYSTEM on 12-16-2023 Albumin BCP dye [Mass/Vol] 3.7 G/dL Normal 3.4 - 4.8 G/dL AO ADM SS Basophil, Absolute 0.0 103/mcL Normal 0.0 - 0.2 10^3/mcL AO Workflow SS Basophils/100 WBC (Bld) 0.6 % Normal 0.0 - 2.5 % AO Workflow SS Calcium [Mass/Vol] 9.0 mg/dL Normal 8.4 - 10. 2 mg/dL AO ADM SS Chloride [Moles/Vol] 101 mmol/L Normal 98 - 10 7 mmol/L AO ADM SS CO2 [Moles/Vol] 30 mmol/L Normal 23 - 31 mmol/L AO ADM SS Creatinine [Mass/Vol] 1.22 mg/dL Normal 0.70 - 1.30 mg/dL AO ADM SS Electrolyte Balance 7.0 mEq/L Normal 4.0 - 15 .0 mEq/L AO ADM SS Eosinophil, Absolute 0.2 103/mcL Normal 0.0 - 0 .4 10^3/mcL AO Workflow SS Eosinophils/100 WBC (Bld) 1.9 % Normal 0.0 - 7.0 % AO Workflow SS Erythrocyte distribution width (RBC) [Ratio] 13.1 % Normal 11.5 - 14.5 % AO Workflow SS Ferritin [Mass/Vol] 154.0 ng/mL Normal 26.0 - 3 88.0 ng/mL AO ADM SS GFR/1.73 sq M.predicted among blacks MDRD (S/P/Bld) [Vol rate/Area] 73 ml/min/1.73sqm Invalid Interpretation Code AO Chemistry S Comment on above: Interpretive Data: GFR Population mean for , Non- Americans Ages 20-29 = 116 mL/min/1.73 sq.m. Ages 30-39 = 107 mL/min/1.73 sq.m. Ages 40-49 = 99 mL/min/1.73 sq.m. Ages 50-59 = 93 mL/min/1.73 sq.m. Ages 60-69 = 85 mL/min/1.73 sq.m. Ages 70+ = 75 mL/min/1.73 sq.m. Chronic Kidney Disease: Less than 60 mL/min/1.73 square meters End Stage Renal Disease: Less than 15 mL/min/1.73 square meters GFR/1.73 sq M.predicted among non-blacks MDRD (S/P/Bld) [Vol rate/Area] 60 ml/min/1.73sqm Invalid Interpretation Code AO Chemistry S Comment on above: Interpretive Data: GFR Population mean for , Non- Americans Ages 20-29 = 116 mL/min/1.73 sq.m. Ages 30-39 = 107 mL/min/1.73 sq.m. Ages 40-49 = 99 mL/min/1.73 sq.m. Ages 50-59 = 93 mL/min/1.73 sq.m. Ages 60-69 = 85 mL/min/1.73 sq.m. Ages 70+ = 75 mL/min/1.73 sq.m. Chronic Kidney Disease: Less than 60 mL/min/1.73 square meters End Stage Renal Disease: Less than 15 mL/min/1.73 square meters Glucose [Mass/Vol] 250 mg/dL High 80 - 115 mg/dL AO ADM SS Hematocrit (Bld) [Volume fraction] 47.9 % Normal 42.0 - 52.0 % AO Workflow SS Hemoglobin (Bld) [Mass/Vol] 16.3 G/dL Normal 14.0 - 18.0 G/dL AO Workflow SS Iron [Mass/Vol] 107 ug/dL Normal 65 - 175 mcg/dL AO ADM SS Iron binding capacity [Mass/Vol] 263 mcg/dL Normal 250 - 450 mcg/dL AO ADM SS Iron Sat 41 % Invalid Interpretation Code AO ADM SS Lymphocyte, Absolute 1.6 103/mcL Normal 0.8 - 3 .9 10^3/mcL AO Workflow SS Lymphocytes/100 WBC (Bld) 20.1 % Normal 10.0 - 50.0 % AO Workflow SS MCH (RBC) [Entitic mass] 31.4 pg High 27.0 - 31.2 pg AO Workflow SS MCHC 34.1 G/dL Normal 31.8 - 35.4 G/dL AO Workflow SS MCV (RBC) [Entitic vol] 92.0 fL Normal 80.0 - 94.0 fL AO Workflow SS Monocyte, Absolute 0.4 103/mcL Normal 0.2 - 1.0 10^3/mcL AO Workflow SS Monocytes/100 WBC (Bld) 5.4 % Normal 1.7 - 13.0 % AO Workflow SS Neutrophil, Absolute 5.8 103/mcL Normal 2.9 - 6 .2 10^3/mcL AO Workflow SS Neutrophils/100 WBC (Bld) 72.0 % Normal 37.0 - 80.0 % AO Workflow SS Parathyrin.intact [Mass/Vol] 30.6 pg/mL Normal 18.5 - 88.0 pg/mL AH ADM SS Phosphate [Mass/Vol] 2.8 mg/dL Normal 2.3 - 4 .1 mg/dL AO ADM SS Platelet mean volume (Bld) [Entitic vol] 7.7 fL Normal 7.4 - 10.4 fL AO Workflow SS Platelets (Bld) [#/Vol] 277 103/mcL Normal 130 - 400 10^3/mcL AO Workflow SS Potassium [Moles/Vol] 4.3 mmol/L Normal 3.5 - 5.1 mmol/L AO ADM SS RBC (Bld) [#/Vol] 5.21 106/mcL Normal 4.04 - 6.1 3 10^6/mcL AO Workflow SS Sodium [Moles/Vol] 138 mmol/L Normal 136 - 145 mmol/L AO ADM SS Urea nitrogen [Mass/Vol] 14 mg/dL Normal 7 - 18 mg/dL AO ADM SS Urea nitrogen/Creatinine [Mass ratio] 11 ratio Normal 7 - 27 ratio AO ADM SS Uric Acid Lvl 6.6 mg/dL Normal 3.5 - 7.2 mg/dL AO ADM SS WBC (Bld) [#/Vol] 8.0 103/mcL Normal 4.6 - 10.8 10^3/mcL AO Workflow SS LABORATORYOrdered By: Amber Denis on 12-16-2023 Creatinine (U) [Mass/Vol] 149.5 mg/dL Normal 39.0 - 259.0 mg/dL AO ADM SS Protein (U) [Mass/Vol] 10 mg/dL Normal 0 - 11 mg/dL AO ADM SS U Ratio Prot/Creat 0.1 ratio Invalid Interpretation Code AO Chemistry S PTHon 12-16-2023 PTH, Intact 30.6 pg/mL Normal 18.5-88.0 [facility] ([place]) Comment on above: Performed By: #### F ERR, ANEU, RFP, FES, GFR, CBC, ADIFF, URIC ####[id number] [place], [place] [address]#### PTH ####[address] [address] RFPon 12-16-2023 Albumin Level 3.7 G/dL Normal 3.4-4.8 [facility] ([place]) Comment on above: Performed By: #### F ERR, ANEU, RFP, FES, GFR, CBC, ADIFF, URIC ####[place] [address]#### PTH ####[place] [address] BUN/Creatinine Ratio 11 ratio Normal 7-27 [facility] ([place]) Comment on above: Performed By: #### F ERR, ANEU, RFP, FES, GFR, CBC, ADIFF, URIC ####[place] [address]#### PTH ####[place] [address] Calcium [Mass/Vol] 9.0 mg/dL Normal 8.4-10.2 [facility] ([place]) Comment on above: Performed By: #### F ERR, ANEU, RFP, FES, GFR, CBC, ADIFF, URIC ####[place] [address]#### PTH ####[place] [address] Chloride [Moles/Vol] 101 mmol/L Normal 98-107 [facility] ([place]) Comment on above: Performed By: #### F ERR, ANEU, RFP, FES, GFR, CBC, ADIFF, URIC ####[place] [address]#### PTH ####[place] [address] CO2 [Moles/Vol] 30 mmol/L Normal 23-31 [facility] ([place]) Comment on above: Performed By: #### F ERR, ANEU, RFP, FES, GFR, CBC, ADIFF, URIC ####[place] [address]#### PTH ####[place] [address] Creatinine [Mass/Vol] 1.22 mg/dL Normal 0.70-1.30 [facility] ([place]) Comment on above: Performed By: #### F ERR, ANEU, RFP, FES, GFR, CBC, ADIFF, URIC ####[place] [address]#### PTH ####[place] [address] Electrolyte Balance 7.0 mEq/L Normal 4.0-15.0 [facility] ([place]) Comment on above: Performed By: #### F ERR, ANEU, RFP, FES, GFR, CBC, ADIFF, URIC ####[place] [address]#### PTH ####[place] [address] Glucose [Mass/Vol] 250 mg/dL High 80-115 [facility] ([place]) Comment on above: Performed By: #### F ERR, ANEU, RFP, FES, GFR, CBC, ADIFF, URIC ####[place] [address]#### PTH ####[place] [address] Phosphate [Mass/Vol] 2.8 mg/dL Normal 2.3-4.1 [facility] ([place]) Comment on above: Performed By: #### F ERR, ANEU, RFP, FES, GFR, CBC, ADIFF, URIC ####[place] [address]#### PTH ####[place] [address] Potassium [Moles/Vol] 4.3 mmol/L Normal 3.5-5.1 [facility] ([place]) Comment on above: Performed By: #### F ERR, ANEU, RFP, FES, GFR, CBC, ADIFF, URIC ####[place] [address]#### PTH ####[place] [address] Sodium [Moles/Vol] 138 mmol/L Normal 136-145 [facility] ([place] Comment on above: Performed By: #### F ERR, ANEU, RFP, FES, GFR, CBC, ADIFF, URIC ####[place] [address]#### PTH ####[place] [address] Urea nitrogen [Mass/Vol] 14 mg/dL Normal 7-18 [facility] ([place] Comment on above: Performed By: #### F ERR, ANEU, RFP, FES, GFR, CBC, ADIFF, URIC ####[place] [address]#### PTH ####[place] [address] RPCURon 12-16-2023 U Creatinine 149.5 mg/dL Normal 39.0-259.0 [facility] ([place]) Comment on above: Performed By: #### R PCUR #### [address] [address] U Protein 10 mg/dL Normal 0-11 [facility] ([place]) Comment on above: Performed By: #### R PCUR #### [address] [address] U Ratio Prot/Creat 0.1 ratio Normal [facility] ([place]) Comment on above: Result Comment: resu lt calculated by rule [id number] (U Protein/U Creatinine) Performed By: #### R PCUR #### [address] [address] URICon 12-16-2023 Uric Acid Lvl 6.6 mg/dL Normal 3.5-7.2 [facility]) Comment on above: Performed By: #### F ERR, ANEU, RFP, FES, GFR, CBC, ADIFF, URIC ####[place] [address]#### PTH ####[place] [address] No Panel InformationOrdered By: SAHRA Herndon on 07-09-2023 Prostate Specific Antigen Total < 0.01 ng/mL 0.0-4.0 [facility] Comment on above: This test was perfor med using the TPSA assay method for the[employer] chemistry system. Values obtained with differentassay methods cannot be used interchangably.When changing PSA assays in the course of monitoring apatient, additional sequential testing should be carriedout to confirm baseline values. Final Surgical Pathology Rep michelle 04-30-2023 Final Surgical Pathology Report . Pathology Reports Accession: Collected Date/Time: Received Date/Time: Pathologist: [id number] 04/28/2023 12:45 EDT 04/29/2023 08:43 EDT MARQUIS LEWIS MD Final Surgical Pathology Report DIAGNOSIS: A. COLON, HEPATIC FLEXURE: - NO EVIDENCE OF MALIGNANCY OR ADENOMATOUS CHANGE B. SIGMOID COLON: - HYPERPLASTIC POLYP CLINICAL INFORMATION: ENCOUNTER FOR SCREENING FOR MALIGNANT NEOPLASM OF COLON Procedure: COLONOSCOPY WITH BX Preoperative diagnosis: SCREENING Postoperative diagnosis: SCREENING SPECIMEN: A HEPATIC FLEXURE - 1-2 MM B SIGMOID - 2 MM GROSS DESCRIPTION: All parts labelled with patient name and [id number] A. Received in formalin labeled hepatic flexure are 4 funes-brown tissue fragments measuring less than 0.1 to 0.1 cm. TS-1 B. Received in formalin labeled sigmoid is 1 funes-pink tissue fragment measuring 0.3 x 0.1 cm. TS-1 Carlyn Armendariz, Grossing Waste Removalist/ Dr. Marquis Lewis, Pathologist Dictated by Carlyn Armendariz MICROSCOPIC DESCRIPTION: The microscopic examination is performed, except in the case of Gross Only. Electronically Signed by Pathology Report verified by [facility] MARQUIS LEWIS Sign out Date: 04/30/2023 14:50 Performing Lab: [facility], [address] [place] [address] Pathology Dept Disclaimer If ancillary studies were utilized, the following Laboratory Developed Test (LDT) disclaimer will apply: Under CLIA requirements, [facility] is qualified to perform high complexity testing. For all ancillary stains, positive and negative controls stain appropriately. Performance characteristics of immunohistochemical and chromogenic in-situ hybridization tests have been determined by [facility]. These tests are used for clinical purposes, They should not be regarded as investigational or for research. Normal [facility] ([place]) No Panel InformationOrdered By: SAHRA Herndon on 12-31-2022 Prostate Specific Antigen Total < 0.01 ng/mL 0.0-4.0 [facility] Comment on above: This test was perfor med using the TPSA assay method for [employer] chemistry system. Values obtained with differentassay methods cannot be used interchangably.When changing PSA assays in the course of monitoring apatient, additional sequential testing should be carriedout to confirm baseline values. LABORATORYOrdered By: Gail Bowen on 12-03-2022 Albumin DL <= 20 mg/L (U) [Mass/Vol] 209 mcg/dL Invalid Interpretation Code AO ADM SS Albumin/Creatinine DL <= 20 mg/L (U) [Mass ratio] 3 mcg/mg Invalid Interpretation Code 0 - 30 mcg/mg AO ADM SS Creatinine (U) [Mass/Vol] 68.9 mg/dL Invalid Interpretation Code 39.0 - 259.0 mg/dL AO ADM SS LABORATORYOrdered By: SYSTEM SYSTEM on 11-19-2022 Albumin BCP dye [Mass/Vol] 4.3 G/dL Invalid Interpretation Code 3.4 - 4.8 G/dL AO ADM SS Albumin/Globulin [Mass ratio] 1.3 {ratio} Invalid Interpretation Code 1.1 - 2.5 ratio AO ADM SS ALP [Catalytic activity/Vol] 78 U/L Invalid Interpretation Code 40 - 135 U/L AO ADM SS ALT With P-5'-P [Catalytic activity/Vol] 47 U/L Invalid Interpretation Code 16 - 63 U/L AO ADM SS AST With P-5'-P [Catalytic activity/Vol] 22 U/L Invalid Interpretation Code 10 - 40 U/L AO ADM SS Bilirubin [Mass/Vol] 0.5 mg/dL Invalid Interpretation Code 0.2 - 1.0 mg/dL AO ADM SS Calcium [Mass/Vol] 9.3 mg/dL Invalid Interpretation Code 8.4 - 10.2 mg/dL AO ADM SS Chloride [Moles/Vol] 102 mmol/L Invalid Interpretation Code 98 - 107 mmol/L AO ADM SS CO2 [Moles/Vol] 30 mmol/L Invalid Interpretation Code 23 - 31 mmol/L AO ADM SS Creatinine [Mass/Vol] 1.08 mg/dL Invalid Interpretation Code 0.70 - 1.30 mg/dL AO ADM SS Electrolyte Balance 6.0 mEq/L Invalid Interpretation Code 4.0 - 15.0 mEq/L AO ADM SS GFR 84 ml/min/1.73sqm Invalid Interpretation Code AO Chemistry S GFR Non- 70 ml/min/1.73sqm Invalid Interpretation Code AO Chemistry S Globulin 3.4 G/dL Invalid Interpretation Code AO ADM SS Glucose [Mass/Vol] 218 mg/dL Invalid Interpretation Code 80 - 115 mg/dL AO ADM SS Potassium [Moles/Vol] 4.5 mmol/L Invalid Interpretation Code 3.5 - 5.1 mmol/L AO ADM SS Protein [Mass/Vol] 7.7 G/dL Invalid Interpretation Code 6.4 - 8.2 G/dL AO ADM SS Sodium [Moles/Vol] 138 mmol/L Invalid Interpretation Code 136 - 145 mmol/L AO ADM SS Urea nitrogen [Mass/Vol] 18 mg/dL Invalid Interpretation Code 7 - 18 mg/dL AO ADM SS Urea nitrogen/Creatinine [Mass ratio] 17 ratio Invalid Interpretation Code 7 - 27 ratio AO ADM SS Albumin BCP dye [Mass/Vol] 4.3 G/dL Invalid Interpretation Code 3.4 - 4.8 G/dL AO ADM SS Calcium [Mass/Vol] 9.6 mg/dL Invalid Interpretation Code 8.4 - 10.2 mg/dL AO ADM SS Chloride [Moles/Vol] 100 mmol/L Invalid Interpretation Code 98 - 107 mmol/L AO ADM SS CO2 [Moles/Vol] 30 mmol/L Invalid Interpretation Code 23 - 31 mmol/L AO ADM SS Creatinine (U) [Mass/Vol] 144.3 mg/dL Invalid Interpretation Code 39.0 - 259.0 mg/dL AO ADM SS Creatinine [Mass/Vol] 1.16 mg/dL Invalid Interpretation Code 0.70 - 1.30 mg/dL AO ADM SS Electrolyte Balance 8.0 mEq/L Invalid Interpretation Code 4.0 - 15.0 mEq/L AO ADM SS Ferritin [Mass/Vol] 113.0 ng/mL Invalid Interpretation Code 26.0 - 388.0 ng/mL AO ADM SS GFR 78 ml/min/1.73sqm Invalid Interpretation Code AO Chemistry S GFR Non- 64 ml/min/1.73sqm Invalid Interpretation Code AO Chemistry S Glucose [Mass/Vol] 220 mg/dL Invalid Interpretation Code 80 - 115 mg/dL AO ADM SS Iron [Mass/Vol] 137 ug/dL Invalid Interpretation Code 65 - 175 mcg/dL AO ADM SS Iron binding capacity [Mass/Vol] 284 mcg/dL Invalid Interpretation Code 250 - 450 mcg/dL AO ADM SS Iron Sat 48 1 Invalid Interpretation Code AO ADM SS Parathyrin.intact [Mass/Vol] 21.5 pg/mL Invalid Interpretation Code 18.5 - 88.0 pg/mL AH ADM SS Phosphate [Mass/Vol] 3.2 mg/dL Invalid Interpretation Code 2.3 - 4.1 mg/dL AO ADM SS Potassium [Moles/Vol] 4.4 mmol/L Invalid Interpretation Code 3.5 - 5.1 mmol/L AO ADM SS Protein (U) [Mass/Vol] 9 mg/dL Invalid Interpretation Code 0 - 11 mg/dL AO ADM SS Sodium [Moles/Vol] 138 mmol/L Invalid Interpretation Code 136 - 145 mmol/L AO ADM SS Urea nitrogen [Mass/Vol] 19 mg/dL Invalid Interpretation Code 7 - 18 mg/dL AO ADM SS Urea nitrogen/Creatinine [Mass ratio] 16 ratio Invalid Interpretation Code 7 - 27 ratio AO ADM SS Uric Acid Lvl 7.1 mg/dL Invalid Interpretation Code 3.5 - 7.2 mg/dL AO ADM SS LABORATORYOrdered By: Gail Bowen on 11-19-2022 Cholesterol [Mass/Vol] 198 mg/dL Invalid Interpretation Code 0 - 200 mg/dL AO ADM SS Cholesterol in HDL [Mass/Vol] 35 mg/dL Invalid Interpretation Code 40 - 60 mg/dL AO ADM SS Cholesterol in LDL [Mass/Vol] 102 mg/dL Invalid Interpretation Code 0 - 130 mg/dL AO ADM SS Triglyceride [Mass/Vol] 306 mg/dL Invalid Interpretation Code 0 - 150 mg/dL AO ADM SS LABORATORYOrdered By: Hamida Salmeron on 11-19-2022 HCV Ab IA Ql Non-Reactive (11/19/22 7:26 AM) Invalid Interpretation Code Non-Reactive AH ADM SS HCV Ab IA Ql Nonreactive: Samples with a value < 0.80 are considered nonreactive (negative) for antibodies to HCV.A negative test result does not exclude the possibility of exposure to or infection with HCV. HCV antibodies may be undetectable in some stages of the infection and in some clinical conditions. Invalid Interpretation Code Chemistry S LABORATORYOrdered By: Eileen Waddell on 11-19-2022 Basophil, Absolute 0.1 103/mcL Invalid Interpretation Code 0.0 - 0.2 10^3/mcL AO Workflow SS Basophils/100 WBC (Bld) 0.7 % Invalid Interpretation Code 0.0 - 2.5 % AO Workflow SS Eosinophil, Absolute 0.1 103/mcL Invalid Interpretation Code 0.0 - 0.4 10^3/mcL AO Workflow SS Eosinophils/100 WBC (Bld) 1.5 % Invalid Interpretation Code 0.0 - 7.0 % AO Workflow SS Erythrocyte distribution width (RBC) [Ratio] 13.1 % Invalid Interpretation Code 11.5 - 14.5 % AO Workflow SS Hematocrit (Bld) [Volume fraction] 49.1 % Invalid Interpretation Code 42.0 - 52.0 % AO Workflow SS Hemoglobin (Bld) [Mass/Vol] 16.9 G/dL Invalid Interpretation Code 14.0 - 18.0 G/dL AO Workflow SS Lymphocyte, Absolute 1.4 103/mcL Invalid Interpretation Code 0.8 - 3.9 10^3/mcL AO Workflow SS Lymphocytes/100 WBC (Bld) 17.8 % Invalid Interpretation Code 10.0 - 50.0 % AO Workflow SS MCH (RBC) [Entitic mass] 31.1 pg Invalid Interpretation Code 27.0 - 31.2 pg AO Workflow SS MCHC 34.3 G/dL Invalid Interpretation Code 31.8 - 35.4 G/dL AO Workflow SS MCV (RBC) [Entitic vol] 90.6 fL Invalid Interpretation Code 80.0 - 94.0 fL AO Workflow SS Monocyte, Absolute 0.4 103/mcL Invalid Interpretation Code 0.2 - 1.0 10^3/mcL AO Workflow SS Monocytes/100 WBC (Bld) 5.0 % Invalid Interpretation Code 1.7 - 13.0 % AO Workflow SS Neutrophil, Absolute 5.9 103/mcL Invalid Interpretation Code 2.9 - 6.2 10^3/mcL AO Workflow SS Neutrophils/100 WBC (Bld) 75.0 % Invalid Interpretation Code 37.0 - 80.0 % AO Workflow SS Platelet mean volume (Bld) [Entitic vol] 7.4 fL Invalid Interpretation Code 7.4 - 10.4 fL AO Workflow SS Platelets (Bld) [#/Vol] 289 103/mcL Invalid Interpretation Code 130 - 400 10^3/mcL AO Workflow SS RBC (Bld) [#/Vol] 5.42 106/mcL Invalid Interpretation Code 4.04 - 6.13 10^6/mcL AO Workflow SS WBC (Bld) [#/Vol] 7.8 103/mcL Invalid Interpretation Code 4.6 - 10.8 10^3/mcL AO Workflow SS No Panel InformationOrdered By: SAHRA Herndon on 10-14-2022 Prostate Specific Antigen Total < 0.01 ng/mL 0.0-4.0 [facility] Comment on above: This test was perfor med using the TPSA assay method for the[employer] chemistry system. Values obtained with differentassay methods cannot be used interchangably.When changing PSA assays in the course of monitoring apatient, additional sequential testing should be carriedout to confirm baseline values. No Panel InformationOrdered By: Dr. Ji on 07-08-2022 Prostate Specific Antigen Total 0.01 ng/mL 0.0-4.0 [facility] Comment on above: This test was perfor med using the TPSA assay method for the[employer] chemistry system. Values obtained with differentassay methods cannot be used interchangably.When changing PSA assays in the course of monitoring apatient, additional sequential testing should be carriedout to confirm baseline values. LABORATORYOrdered By: Eileen Waddell on 05-18-2022 Creatinine (U) [Mass/Vol] 71.0 mg/dL Invalid Interpretation Code 39.0 - 259.0 mg/dL AO ADM SS Protein (U) [Mass/Vol] 22 mg/dL Invalid Interpretation Code 0 - 11 mg/dL AO ADM SS Albumin BCP dye [Mass/Vol] 4.0 G/dL Invalid Interpretation Code 3.4 - 4.8 G/dL AO ADM SS Basophil, Absolute 0.1 103/mcL Invalid Interpretation Code 0.0 - 0.2 10^3/mcL AO Workflow SS Basophils/100 WBC (Bld) 0.6 % Invalid Interpretation Code 0.0 - 2.5 % AO Workflow SS Calcium [Mass/Vol] 9.4 mg/dL Invalid Interpretation Code 8.4 - 10.2 mg/dL AO ADM SS Chloride [Moles/Vol] 99 mmol/L Invalid Interpretation Code 98 - 107 mmol/L AO ADM SS CO2 [Moles/Vol] 32 mmol/L Invalid Interpretation Code 23 - 31 mmol/L AO ADM SS Creatinine [Mass/Vol] 1.17 mg/dL Invalid Interpretation Code 0.70 - 1.30 mg/dL AO ADM SS Electrolyte Balance 7.0 mEq/L Invalid Interpretation Code 4.0 - 15.0 mEq/L AO ADM SS Eosinophil, Absolute 0.4 103/mcL Invalid Interpretation Code 0.0 - 0.4 10^3/mcL AO Workflow SS Eosinophils/100 WBC (Bld) 4.3 % Invalid Interpretation Code 0.0 - 7.0 % AO Workflow SS Erythrocyte distribution width (RBC) [Ratio] 13.5 % Invalid Interpretation Code 11.5 - 14.5 % AO Workflow SS Ferritin [Mass/Vol] 160.0 ng/mL Invalid Interpretation Code 26.0 - 388.0 ng/mL AO ADM SS Glucose [Mass/Vol] 125 mg/dL Invalid Interpretation Code 80 - 115 mg/dL AO ADM SS Hematocrit (Bld) [Volume fraction] 46.3 % Invalid Interpretation Code 42.0 - 52.0 % AO Workflow SS Hemoglobin (Bld) [Mass/Vol] 15.9 G/dL Invalid Interpretation Code 14.0 - 18.0 G/dL AO Workflow SS Iron [Mass/Vol] 70 ug/dL Invalid Interpretation Code 65 - 175 mcg/dL AO ADM SS Iron binding capacity [Mass/Vol] 287 mcg/dL Invalid Interpretation Code 250 - 450 mcg/dL AO ADM SS Iron Sat 24 1 Invalid Interpretation Code AO ADM SS Lymphocyte, Absolute 1.4 103/mcL Invalid Interpretation Code 0.8 - 3.9 10^3/mcL AO Workflow SS Lymphocytes/100 WBC (Bld) 14.7 % Invalid Interpretation Code 10.0 - 50.0 % AO Workflow SS MCH (RBC) [Entitic mass] 30.8 pg Invalid Interpretation Code 27.0 - 31.2 pg AO Workflow SS MCHC 34.4 G/dL Invalid Interpretation Code 31.8 - 35.4 G/dL AO Workflow SS MCV (RBC) [Entitic vol] 89.4 fL Invalid Interpretation Code 80.0 - 94.0 fL AO Workflow SS Monocyte, Absolute 0.6 103/mcL Invalid Interpretation Code 0.2 - 1.0 10^3/mcL AO Workflow SS Monocytes/100 WBC (Bld) 6.7 % Invalid Interpretation Code 1.7 - 13.0 % AO Workflow SS Neutrophil, Absolute 7.0 103/mcL Invalid Interpretation Code 2.9 - 6.2 10^3/mcL AO Workflow SS Neutrophils/100 WBC (Bld) 73.7 % Invalid Interpretation Code 37.0 - 80.0 % AO Workflow SS Phosphate [Mass/Vol] 3.9 mg/dL Invalid Interpretation Code 2.3 - 4.1 mg/dL AO ADM SS Platelet mean volume (Bld) [Entitic vol] 7.1 fL Invalid Interpretation Code 7.4 - 10.4 fL AO Workflow SS Platelets (Bld) [#/Vol] 358 103/mcL Invalid Interpretation Code 130 - 400 10^3/mcL AO Workflow SS Potassium [Moles/Vol] 4.5 mmol/L Invalid Interpretation Code 3.5 - 5.1 mmol/L AO ADM SS RBC (Bld) [#/Vol] 5.18 106/mcL Invalid Interpretation Code 4.04 - 6.13 10^6/mcL AO Workflow SS Sodium [Moles/Vol] 138 mmol/L Invalid Interpretation Code 136 - 145 mmol/L AO ADM SS Urea nitrogen [Mass/Vol] 19 mg/dL Invalid Interpretation Code 7 - 18 mg/dL AO ADM SS Urea nitrogen/Creatinine [Mass ratio] 16 ratio Invalid Interpretation Code 7 - 27 ratio AO ADM SS Uric Acid Lvl 7.5 mg/dL Invalid Interpretation Code 3.5 - 7.2 mg/dL AO ADM SS WBC (Bld) [#/Vol] 9.5 103/mcL Invalid Interpretation Code 4.6 - 10.8 10^3/mcL AO Workflow SS LABORATORYOrdered By: SYSTEM SYSTEM on 05-18-2022 GFR 77 ml/min/1.73sqm Invalid Interpretation Code AO Chemistry S GFR Non- 64 ml/min/1.73sqm Invalid Interpretation Code AO Chemistry S Glucose Glucometer (BldC) [M ass/Vol]on 05-10-2022 Glucose [Mass/Vol] 171 mg/dL 74-106 [facility] Work Phone: Comment on above: MANAGEMENT OF PATIEN T CARE PER NURSING PROTOCOL Basophil percentageon 2021 Bilirubin [Mass/Vol] 0.30 mg/dL 0.20-1.00 Paulino arce [facility] Work Phone: Comment on above: For patients on eltr ombopag therapy, use of Dimension [place] TBIL is not recommended. Chloride [Moles/Vol] 105 mmol/L 98-107 [facility] Work Phone: Glucose [Mass/Vol] 102 mg/dL 74-106 [facility] Work Phone: Comment on above: Fasting Glucose resu lt from 100 to 125 mg/dL suggests IMPAIRED HOMEOSTASIS per A.D.A. criteria. Potassium [Moles/Vol] 3.9 mmol/L 3.5-5.1 [facility] Work Phone: Protein [Mass/Vol] 7.6 g/dL 6.4-8.2 [facility] Work Phone: Sodium [Moles/Vol] 139 mmol/L 136-145 [facility] Work Phone: WBC (Bld) [#/Vol] 9.1 10*3/uL 4.4-11.0 [facility] Work Phone: Blood erythrocytes count (nu mber/volume)on 05-06-2022 RBC (Bld) [#/Vol] 5.24 10*6/uL 4.6-6.2 [facility] Work Phone: Blood hemoglobin measurement (mass/volume)on 05-06-2022 Hemoglobin (Bld) [Mass/Vol] 16.4 g/dL 13.0-16.5 [facility] Work Phone: Blood platelet mean volumeon 05-06-2022 Platelet mean volume (Bld) [Entitic vol] 9.3 fL 6.2-12.0 [facility] Work Phone: Determination of erythrocyte mean corpuscular volume (MCV)on 05-06-2022 MCV (RBC) [Entitic vol] 91.4 fL 80-94 [facility] Work Phone: Direct bilirubinon 2 Bilirubin.direct [Mass/Vol] 0.10 mg/dL 0.00-0.30 [facility] Work Phone: [phone] Hematocrit Auto (Bld) [Volum e fraction]on 05-06-2022 Hematocrit (Bld) [Volume fraction] 47.9 % 40-54 [facility] Work Phone: [phone] INR in Blood by Coagulation assayon 05-06-2022 INR Coag (Bld) [Relative time] 1.1 {INR} [facility] Work Phone: [phone] Laboratory - Chemistry and C hemistry - challengeon 05-06-2022 ALP [Catalytic activity/Vol] 72 U/L 45-117 [facility] Work Phone: ALT [Catalytic activity/Vol] 35 U/L 16-61 [facility] Work Phone: CO2 [Moles/Vol] 29.0 mmol/L 21.0-32.0 [facility] Work Phone: [phone] Globulin (S) [Mass/Vol] 3.8 g/dL 2.2-4.2 [facility] Work Phone: [phone] Urea nitrogen/Creatinine [Mass ratio] 14.3 mg/mg 10-20 [facility] Work Phone: [phone] Laboratory - Coagulationon 0 05-06-2022 aPTT Coag (Bld) [Time] 30.0 s 24.1-36.2 [facility] Work Phone: PT Coag (PPP) [Time] 13.6 s 11.7-14.9 [facility] Work Phone: Laboratory - Hematology and Cell countson 05-06-2022 Erythrocyte distribution width (RBC) [Entitic vol] 43.1 fL 35.1-43.9 [facility] Work Phone: Erythrocyte distribution width (RBC) [Ratio] 12.9 % 11.6-14.6 [facility] Work Phone: [phone] MCH (RBC) [Entitic mass] 31.3 pg 27.0-32.0 [facility] Work Phone: MCHC Auto (RBC) [Mass/Vol]on 05-06-2022 MCHC (RBC) [Mass/Vol] 34.2 g/dL 32-36 [facility] Work Phone: No Panel Informationon 05-06 Estimated GFR (MDRD) Amer 92 mL/min >60 [facility] Work Phone: Comment on above: GFR Calc Estimated GFR (MDRD) Non-Af Amer 76 mL/min >60 [facility] Work Phone: Comment on above: Non- GFR Calc Platelets bldon 05-06-2022 Platelets (Bld) [#/Vol] 304 10*3/uL 150-450 [facility] Work Phone: Serum or plasma albumin brock urement (mass/volume)on 05-06-2022 Albumin [Mass/Vol] 3.8 g/dL 3.2-5.0 [facility] Work Phone: Serum or plasma calcium brock urement (mass/volume)on 05-06-2022 Calcium [Mass/Vol] 9.1 mg/dL 8.5-10.1 [facility] Work Phone: Serum or plasma creatinine m easurement (mass/volume)on 05-06-2022 Creatinine [Mass/Vol] 1.05 mg/dL 0.70-1.30 [facility] Work Phone: Comment on above: The validity of the calculated GFR & GFRAA in patients over 70 years has not been determined. Clinical correlation is essential. Serum or plasma urea nitroge n measurement (mass/volume)on 05-06-2022 Urea nitrogen [Mass/Vol] 15 mg/dL 7-18 [facility] Work Phone: Thin prep Papanicolaou smear with manual screeningon 05-06-2022 Thin prep Papanicolaou smear with manual screening 18 U/L 15-37 [facility] Work Phone: Thin prep Papanicolaou smear with manual screening 5 5-15 [facility] Work Phone: Whole blood hemoglobin A1c/t otal hemoglobin ratio (mass fraction)on 05-06-2022 HbA1c (Bld) [Mass fraction] 6.1 % 3.8-5.6 [facility] Work Phone: Comment on above: Normal < 5.7 % Predi abetic 5.7 - 6.4 % Diabetic >or= 6.5 % Please note range changes. Basophil percentageon 2021 Basophil percentage < 0.9 mg/dL 0.70-1.30 [facility] Work Phone: No Panel Informationon 04-03 Bedside Estimated GFR (eGFR) > 60.0000 mL/min >60 [facility] Work Phone: No Panel Informationon 02-28 Prostate Specific Antigen Total 5.27 ng/mL 0.0-4.0 [facility] Work Phone: Comment on above: This test was perfor med using the TPSA assay method for Duable Chinese chemistry system. Values obtained with differentassay methods cannot be used interchangably.When changing PSA assays in the course of monitoring apatient, additional sequential testing should be carriedout to confirm baseline values. LABORATORYOrdered By: Amber Aguilar on 11-16-2021 Albumin BCP dye [Mass/Vol] 4.5 G/dL Invalid Interpretation Code 3.4 - 4.8 G/dL AO ADM SS Albumin/Globulin [Mass ratio] 1.4 {ratio} Invalid Interpretation Code 1.1 - 2.5 ratio AO ADM SS ALP [Catalytic activity/Vol] 48 U/L Invalid Interpretation Code 40 - 135 U/L AO ADM SS ALT With P-5'-P [Catalytic activity/Vol] 54 U/L Invalid Interpretation Code 16 - 63 U/L AO ADM SS AST With P-5'-P [Catalytic activity/Vol] 37 U/L Invalid Interpretation Code 10 - 40 U/L AO ADM SS Basophil, Absolute 0.10 103/mcL Invalid Interpretation Code 0.00 - 0.19 10^3/mcL AO Auto Heme SS Basophils/100 WBC (Bld) 0.8 % Invalid Interpretation Code 0.0 - 2.5 % AO Auto Heme SS Bilirubin [Mass/Vol] 0.5 mg/dL Invalid Interpretation Code 0.2 - 1.0 mg/dL AO ADM SS Calcium [Mass/Vol] 9.9 mg/dL Invalid Interpretation Code 8.4 - 10.2 mg/dL AO ADM SS Chloride [Moles/Vol] 100 mmol/L Invalid Interpretation Code 98 - 107 mmol/L AO ADM SS Cholesterol [Mass/Vol] 154 mg/dL Invalid Interpretation Code 0 - 200 mg/dL AO ADM SS Cholesterol in HDL [Mass/Vol] 40 mg/dL Invalid Interpretation Code 40 - 60 mg/dL AO ADM SS Cholesterol in LDL [Mass/Vol] 94 mg/dL Invalid Interpretation Code 0 - 130 mg/dL AO ADM SS CO2 [Moles/Vol] 29 mmol/L Invalid Interpretation Code 23 - 31 mmol/L AO ADM SS Creatinine [Mass/Vol] 1.18 mg/dL Invalid Interpretation Code 0.70 - 1.30 mg/dL AO ADM SS Electrolyte Balance 9.0 mEq/L Invalid Interpretation Code 4.0 - 15.0 mEq/L AO ADM SS Eosinophil, Absolute 0.10 103/mcL Invalid Interpretation Code 0.00 - 0.40 10^3/mcL AO Auto Heme SS Eosinophils/100 WBC (Bld) 2.0 % Invalid Interpretation Code 0.0 - 7.0 % AO Auto Heme SS Erythrocyte distribution width (RBC) [Ratio] 13.1 % Invalid Interpretation Code 11.5 - 14.5 % AO Auto Heme SS Globulin 3.3 G/dL Invalid Interpretation Code AO ADM SS Glucose [Mass/Vol] 118 mg/dL Invalid Interpretation Code 80 - 115 mg/dL AO ADM SS Hematocrit (Bld) [Volume fraction] 48.4 % Invalid Interpretation Code 42.0 - 52.0 % AO Auto Heme SS Hemoglobin (Bld) [Mass/Vol] 16.2 G/dL Invalid Interpretation Code 14.0 - 18.0 G/dL AO Auto Heme SS Lymphocyte, Absolute 1.70 103/mcL Invalid Interpretation Code 0.77 - 3.85 10^3/mcL AO Auto Heme SS Lymphocytes/100 WBC (Bld) 25.1 % Invalid Interpretation Code 10.0 - 50.0 % AO Auto Heme SS MCH (RBC) [Entitic mass] 30.3 pg Invalid Interpretation Code 27.0 - 31.2 pg AO Auto Heme SS MCHC (RBC) [Mass/Vol] 33.6 G/dL Invalid Interpretation Code 31.8 - 35.4 G/dL AO Auto Heme SS MCV (RBC) [Entitic vol] 90.2 fL Invalid Interpretation Code 80.0 - 94.0 fL AO Auto Heme SS Monocyte, Absolute 0.60 103/mcL Invalid Interpretation Code 0.15 - 1.00 10^3/mcL AO Auto Heme SS Monocytes/100 WBC (Bld) 8.8 % Invalid Interpretation Code 1.7 - 13.0 % AO Auto Heme SS Neutrophil, Absolute 4.20 103/mcL Invalid Interpretation Code 2.85 - 6.16 10^3/mcL AO Auto Heme SS Neutrophils/100 WBC (Bld) 63.3 % Invalid Interpretation Code 37.0 - 80.0 % AO Auto Heme SS Platelet mean volume (Bld) [Entitic vol] 7.3 fL Invalid Interpretation Code 7.4 - 10.4 fL AO Auto Heme SS Platelets (Bld) [#/Vol] 380 103/mcL Invalid Interpretation Code 130 - 400 10^3/mcL AO Auto Heme SS Potassium [Moles/Vol] 4.5 mmol/L Invalid Interpretation Code 3.5 - 5.1 mmol/L AO ADM SS Protein [Mass/Vol] 7.8 G/dL Invalid Interpretation Code 6.4 - 8.2 G/dL AO ADM SS RBC (Bld) [#/Vol] 5.37 106/mcL Invalid Interpretation Code 4.04 - 6.13 10^6/mcL AO Auto Heme SS Sodium [Moles/Vol] 138 mmol/L Invalid Interpretation Code 136 - 145 mmol/L AO ADM SS Triglyceride [Mass/Vol] 99 mg/dL Invalid Interpretation Code 0 - 150 mg/dL AO ADM SS Urea nitrogen [Mass/Vol] 22 mg/dL Invalid Interpretation Code 7 - 18 mg/dL AO ADM SS Urea nitrogen/Creatinine [Mass ratio] 19 ratio Invalid Interpretation Code 7 - 27 ratio AO ADM SS WBC (Bld) [#/Vol] 6.60 103/mcL Invalid Interpretation Code 4.60 - 10.80 10^3/mcL AO Auto Heme SS LABORATORYOrdered By: SYSTEM SYSTEM on 11-16-2021 GFR 76 ml/min/1.73sqm Invalid Interpretation Code AO Chemistry S GFR Non- 63 ml/min/1.73sqm Invalid Interpretation Code AO Chemistry S LABORATORYOrdered By: Eileen Waddell on 11-10-2021 Albumin BCP dye [Mass/Vol] 4.3 G/dL Invalid Interpretation Code 3.4 - 4.8 G/dL AO ADM SS Basophil, Absolute 0.00 103/mcL Invalid Interpretation Code 0.00 - 0.19 10^3/mcL AO Auto Heme SS Basophils/100 WBC (Bld) 0.6 % Invalid Interpretation Code 0.0 - 2.5 % AO Auto Heme SS Calcium [Mass/Vol] 9.5 mg/dL Invalid Interpretation Code 8.4 - 10.2 mg/dL AO ADM SS Chloride [Moles/Vol] 102 mmol/L Invalid Interpretation Code 98 - 107 mmol/L AO ADM SS CO2 [Moles/Vol] 29 mmol/L Invalid Interpretation Code 23 - 31 mmol/L AO ADM SS Creatinine (U) [Mass/Vol] 47.7 mg/dL Invalid Interpretation Code 39.0 - 259.0 mg/dL AO ADM SS Creatinine [Mass/Vol] 1.20 mg/dL Invalid Interpretation Code 0.70 - 1.30 mg/dL AO ADM SS Electrolyte Balance 8.0 mEq/L Invalid Interpretation Code 4.0 - 15.0 mEq/L AO ADM SS Eosinophil, Absolute 0.10 103/mcL Invalid Interpretation Code 0.00 - 0.40 10^3/mcL AO Auto Heme SS Eosinophils/100 WBC (Bld) 1.7 % Invalid Interpretation Code 0.0 - 7.0 % AO Auto Heme SS Erythrocyte distribution width (RBC) [Ratio] 12.9 % Invalid Interpretation Code 11.5 - 14.5 % AO Auto Heme SS Glucose [Mass/Vol] 74 mg/dL Invalid Interpretation Code 80 - 115 mg/dL AO ADM SS Hematocrit (Bld) [Volume fraction] 45.6 % Invalid Interpretation Code 42.0 - 52.0 % AO Auto Heme SS Hemoglobin (Bld) [Mass/Vol] 15.6 G/dL Invalid Interpretation Code 14.0 - 18.0 G/dL AO Auto Heme SS Iron [Mass/Vol] 116 ug/dL Invalid Interpretation Code 65 - 175 mcg/dL AO ADM SS Iron binding capacity [Mass/Vol] 297 mcg/dL Invalid Interpretation Code 250 - 450 mcg/dL AO ADM SS Iron Sat 39 1 Invalid Interpretation Code AO ADM SS Lymphocyte, Absolute 1.50 103/mcL Invalid Interpretation Code 0.77 - 3.85 10^3/mcL AO Auto Heme SS Lymphocytes/100 WBC (Bld) 21.7 % Invalid Interpretation Code 10.0 - 50.0 % AO Auto Heme SS MCH (RBC) [Entitic mass] 31.0 pg Invalid Interpretation Code 27.0 - 31.2 pg AO Auto Heme SS MCHC (RBC) [Mass/Vol] 34.2 G/dL Invalid Interpretation Code 31.8 - 35.4 G/dL AO Auto Heme SS MCV (RBC) [Entitic vol] 90.5 fL Invalid Interpretation Code 80.0 - 94.0 fL AO Auto Heme SS Monocyte, Absolute 0.50 103/mcL Invalid Interpretation Code 0.15 - 1.00 10^3/mcL AO Auto Heme SS Monocytes/100 WBC (Bld) 7.4 % Invalid Interpretation Code 1.7 - 13.0 % AO Auto Heme SS Neutrophil, Absolute 4.70 103/mcL Invalid Interpretation Code 2.85 - 6.16 10^3/mcL AO Auto Heme SS Neutrophils/100 WBC (Bld) 68.6 % Invalid Interpretation Code 37.0 - 80.0 % AO Auto Heme SS Phosphate [Mass/Vol] 3.1 mg/dL Invalid Interpretation Code 2.3 - 4.1 mg/dL AO ADM SS Platelet mean volume (Bld) [Entitic vol] 7.5 fL Invalid Interpretation Code 7.4 - 10.4 fL AO Auto Heme SS Platelets (Bld) [#/Vol] 378 103/mcL Invalid Interpretation Code 130 - 400 10^3/mcL AO Auto Heme SS Potassium [Moles/Vol] 4.5 mmol/L Invalid Interpretation Code 3.5 - 5.1 mmol/L AO ADM SS Protein (U) [Mass/Vol] mg/dL Invalid Interpretation Code 0 - 11 mg/dL AO ADM SS RBC (Bld) [#/Vol] 5.03 106/mcL Invalid Interpretation Code 4.04 - 6.13 10^6/mcL AO Auto Heme SS Sodium [Moles/Vol] 139 mmol/L Invalid Interpretation Code 136 - 145 mmol/L AO ADM SS Urea nitrogen [Mass/Vol] 20 mg/dL Invalid Interpretation Code 7 - 18 mg/dL AO ADM SS Urea nitrogen/Creatinine [Mass ratio] 17 ratio Invalid Interpretation Code 7 - 27 ratio AO ADM SS Uric Acid Lvl 5.3 mg/dL Invalid Interpretation Code 3.5 - 7.2 mg/dL AO ADM SS WBC (Bld) [#/Vol] 6.80 103/mcL Invalid Interpretation Code 4.60 - 10.80 10^3/mcL AO Auto Heme SS LABORATORYOrdered By: SYSTEM SYSTEM on 11-10-2021 Ferritin [Mass/Vol] 97.8 ng/mL Invalid Interpretation Code 26.0 - 388.0 ng/mL AH ADM SS GFR 75 ml/min/1.73sqm Invalid Interpretation Code AO Chemistry S GFR Non- 62 ml/min/1.73sqm Invalid Interpretation Code AO Chemistry S Parathyrin.intact [Mass/Vol] 19.6 pg/mL Invalid Interpretation Code 18.5 - 88.0 pg/mL AH ADM SS Vital Signs Date Time Vital Sign Value Performing Clinician Facility 04-28-2023 10:56-0400 Diastolic Blood Pressure Non-Invasive [address] MELISSA COTO MD [facility] 04-28-2023 10:56-0400 Heart rate 64 /min DR MELISSA COTO MD [facility] 04-28-2023 10:56-0400 Respiratory rate 16 /min DR MELISSA COTO MD [facility] 04-28-2023 10:56-0400 Systolic Blood Pressure Non-Invasive [address] MELISSA COTO MD [facility] 04-28-2023 10:46-0400 Diastolic Blood Pressure Non-Invasive [address] MELISSA COTO MD [facility] 04-28-2023 10:46-0400 Systolic Blood Pressure Non-Invasive [address] MELISSA COTO MD [facility] 04-28-2023 10:44-0400 Heart rate 67 /min DR MELISSA COTO MD [facility] 04-28-2023 10:44-0400 Respiratory rate 18 /min DR MELISSA COTO MD [facility] 04-28-2023 10:39-0400 Diastolic Blood Pressure Non-Invasive [address] MELISSA COTO MD [facility] 04-28-2023 10:39-0400 Heart rate 59 /min DR MELISSA COTO MD [facility] 04-28-2023 10:39-0400 Respiratory rate 13 /min DR MELISSA COTO MD [facility] 04-28-2023 10:39-0400 Systolic Blood Pressure Non-Invasive [address] MELISSA COTO MD [facility] 04-28-2023 10:31-0400 Body temperature 97.16 [degF] DR MELISSA COTO MD [facility] 04-28-2023 10:25-0400 Respiratory Rate - Anes 18 br/min DR MELISSA COTO MD [facility] 04-28-2023 10:20-0400 Respiratory Rate - Anes 24 br/min DR MELISSA COTO MD [facility] 04-28-2023 10:15-0400 Respiratory Rate - Anes 21 br/min DR MELISSA COTO MD [facility] 04-28-2023 09:33-0400 Body height [address] MELISSA COTO MD [facility] 04-28-2023 09:33-0400 Body weight [address] MELISSA COTO MD [facility] 04-28-2023 09:33-0400 Body weight 153.88 kg/m2 DR MELISSA COTO MD [facility] 05-11-2022 11:30-0400 Body temperature 97.9 [degF] [facility] Work Phone: 05-11-2022 11:30-0400 Diastolic blood pressure 90 mm[Hg] [facility] Work Phone: 05-11-2022 11:30-0400 Heart rate 71 /min [facility] Work Phone: 05-11-2022 11:30-0400 Respiratory rate 16 /min [facility] Work Phone: 05-11-2022 11:30-0400 SaO2% (BldA) [Mass fraction] 98 % [facility] Work Phone: 05-11-2022 11:30-0400 Systolic blood pressure 160 mm[Hg] [facility] Work Phone: 05-11-2022 05:35-0400 Body temperature 98.3 [degF] [facility] Work Phone: 05-11-2022 05:35-0400 Diastolic blood pressure 83 mm[Hg] [facility] Work Phone: 05-11-2022 05:35-0400 Heart rate 65 /min [facility] Work Phone: 05-11-2022 05:35-0400 Respiratory rate 14 /min [facility] Work Phone: 05-11-2022 05:35-0400 SaO2% (BldA) [Mass fraction] 95 % [facility] Work Phone: 05-11-2022 05:35-0400 Systolic blood pressure 144 mm[Hg] [facility] Work Phone: 05-10-2022 06:53-0400 Body height 172.72 cm [facility] Work Phone: [phone] Body mass index (BMI) [Ratio] 26.1 kg/m2 [facility] Work Phone: 05-10-2022 [phone] Body weight 78.01 kg [facility] Work Phone: Encounters Encounter Date Encounter Type Care Provider Facility Start: 01-03-2025 End: 01-03-2025 ambulatory LISETTE BALTES COMPATIBILITY TEST ENGINEER-ONSHORE DIVER Facility:[facility] Start: 12-24-2024 End: 12-24-2024 ambulatory LISETTE BALTES COMPATIBILITY TEST ENGINEER-ONSHORE DIVER Facility:[facility] Start: 10-11-2024 End: 10-11-2024 ambulatory LISETTE BALTES COMPATIBILITY TEST ENGINEER-ONSHORE DIVER Facility:[facility] Start: 10-11-2024 End: 10-11-2024 Patient encounter procedure LISETTE BALTES COMPATIBILITY TEST ENGINEER-ONSHORE DIVER [facility] Start: 10-01-2024 End: 10-05-2024 Outreach Lab LISETTE BALTES COMPATIBILITY TEST ENGINEER-ONSHORE DIVER [facility] Start: 10-01-2024 End: 10-05-2024 ambulatory LISETTE BALTES COMPATIBILITY TEST ENGINEER-ONSHORE DIVER Facility:[facility] Start: 10-01-2024 End: 10-01-2024 Patient encounter procedure LISETTE BALTES COMPATIBILITY TEST ENGINEER-ONSHORE DIVER [facility] Start: 07-05-2024 End: 07-05-2024 ambulatory Tyrone Ji Facility:[facility] Start: 06-21-2024 End: 06-21-2024 ambulatory RHIANNON KERR MD Facility:[facility] Start: 06-21-2024 End: 06-21-2024 Patient encounter procedure RHIANNON KERR MD [facility] Start: 02-02-2024 End: 02-03-2024 ambulatory LISETTE BALTES COMPATIBILITY TEST ENGINEER-ONSHORE DIVER Facility:[facility] Start: 02-02-2024 End: 02-02-2024 Patient encounter procedure LISETTE SORTO COMPATIBILITY TEST ENGINEER-ONSHORE DIVER [facility] Start: 01-05-2024 End: 01-05-2024 ambulatory [facility] Work Phone: Start: 01-05-2024 End: 01-05-2024 Patient encounter procedure [facility] Work Phone: Start: 01-05-2024 End: 01-05-2024 ambulatory Lisette Sorto PARKS RECREATION COORDINATOR Facility:[facility] Start: 12-16-2023 End: 12-17-2023 ambulatory RHIANNON KERR MD Facility:[facility] Start: 12-16-2023 End: 12-16-2023 Patient encounter procedure RHIANNON KERR MD [facility] Start: 07-09-2023 End: 07-09-2023 ambulatory [facility] Work Phone: Start: 07-09-2023 End: 07-09-2023 Patient encounter procedure [facility] Work Phone: Start: 04-28-2023 End: 04-28-2023 ambulatory LISETTE SORTO COMPATIBILITY TEST ENGINEER-ONSHORE DIVER Facility:[facility] Start: 04-28-2023 End: 04-28-[address] MELISSA COTO MD [facility] Start: 12-31-2022 End: 12-31-2022 ambulatory [facility] Work Phone: Start: 12-31-2022 End: 12-31-2022 Patient encounter procedure [facility] Start: 12-03-2022 End: 12-07-2022 Outreach Lab LISETTE SORTO COMPATIBILITY TEST ENGINEER-ONSHORE DIVER [facility] Start: 11-19-2022 End: 11-19-2022 Patient encounter procedure RHIANNON KERR MD [facility] Start: 10-14-2022 End: 10-14-2022 ambulatory [facility] Work Phone: Start: 10-14-2022 End: 10-14-2022 Patient encounter procedure [facility] Start: 07-08-2022 End: 07-08-2022 ambulatory [facility] Work Phone: Start: 07-08-2022 End: 07-08-2022 Patient encounter procedure [facility] Start: 05-18-2022 End: 05-18-2022 Patient encounter procedure RHIANNON KERR MD [facility] Start: 05-10-2022 End: 05-11-2022 Evaluation and management of inpatient [facility] 3 Start: 05-10-2022 End: 05-11-2022 observation encounter [facility] Work Phone: Start: 04-03-2022 End: 04-03-2022 Patient encounter procedure [facility] Start: 02-28-2022 End: 02-28-2022 Patient encounter procedure [facility] Start: 11-16-2021 End: 11-16-2021 Patient encounter procedure LISETTE GRAYSONJUAN COMPATIBILITY TEST ENGINEER-ONSHORE DIVER [facility] Start: 11-10-2021 End: 11-10-2021 Patient encounter procedure RHIANNNO KERR MD [facility] Procedures Date Procedure Procedure Detail Performing Clinician Start: 05-10-2022 Lap Robotic Prostate ctomy (Not Applicable) Start: 05-10-2022 Radical prostatectomy Sebastian KERR MD Comment on above: Dr. Ji [facility] Start: 04-03-2022 MRI of pelvis with contrast Start: 07-06-2020 Robotic assisted surgery RHIANNON KERR MD Comment on above: BILATERAL INGUNIAL H ERNIA REPAIR Start: 01-05-2018 Colonoscopy RHIANNON ZHENG MD Start: 11-29-2017 Ophthalmic examinati on and evaluation RHIANNON KERR MD Comment on above: Mariam Rowland Plan of Treatment Date Care Activity Detail Author Start: 05-11-2022 Patient discharge [facility] Work Phone: Start: 05-10-2022 Anes xtrprtl lwr abd w/urinary tract rad prstect ANESTH REMOVAL OF PROSTATE [facility] Work Phone: Start: 05-10-2022 Laps prostect retropubic rad w/nrv sparing robot LAPARO RADICAL PROSTATECTOMY [facility] Work Phone: Start: 05-10-2022 Following clinical pathway protocol [facility] Work Phone: Start: 05-10-2022 Admission procedure [facility] Work Phone: Patient Education Radical Prosta tectomy Dc Indwelling Urinary Catheter Dc Leg Bag Care Dc [facility] Work Phone: Patient referral [facility] Work Phone: Immunizations Immunization Date Immunization Notes Care Provider [facility] 07-02-2024 influenza, injectabl e, quadrivalent, contains preservative; Translations: [Fluarix PF Prefilled Syringe ] LISETTE SORTO COMPATIBILITY TEST ENGINEER-ONSHORE DIVER [facility] 08-26-2023 influenza, injectabl e, quadrivalent, contains preservative; Translations: [Fluarix PF Quadrivalent ] RHIANNON KERR MD [facility] 06-13-2022 COVID-19, mRNA, LNP- S, bivalent booster, PF, 30 mcg/0.3 mL dose; Translations: [Pfizer-BioNTech COVID-19 (12y+) Bivalent Booster Vaccine PF] RHIANNON KERR MD [facility] 06-13-2022 SARSCoV2 mRNA([id number]+)bi karl vac; Translations: [Pfizer-BioNTech COVID-19 (12y+) Bivalent Booster Vaccine PF] RHIANNON KERR MD [facility] 11-29-2021 COVID-19, mRNA, LNP- S, PF, 30 mcg/0.3 mL dose; Translations: [Pfizer-BioNTech COVID-19 Vaccine (Do Not Dilute)] RHIANNON KERR MD [facility] 01-10-2021 SARS-CoV-2 mRNA (tozinameran) vaccine RHIANNON KERR MD [facility] Comment on above: Result Comment: 2020: [id number] 12-20-2020 SARS-CoV-2 mRNA (tozinameran) vaccine RHIANNON KERR MD [facility] Comment on above: Result Comment: 2020: [id number] 11-30-2019 influenza, injectabl e, quadrivalent, preservative free; Translations: [Fluarix PF Quadrivalent ] RHIANNON KERR MD [facility] 05-26-2018 influenza virus vaccine, unspecified formulation RHIANNON KERR MD [facility] Comment on above: Result Comment: [05/16] Quad 06-17-2016 influenza virus vaccine, unspecified formulation RHIANNON KERR MD [facility] 06-19-2015 influenza virus vaccine, unspecified formulation RHIANNON KERR MD [facility] 06-27-2014 influenza virus vaccine, unspecified formulation RHIANNON KERR MD [facility] Payers Date Payer Category Payer Self-pay [id number] 2023 Private Health Insurance [id number] 2020 Private Health Insurance [id number] 1961 Unknown [id number] 2.16.8 [id number] 1961 Unknown [id number] 2.16.8 [id number] 1961 Unknown [id number] 2.16.8 [id number] 1961 Unknown [id number] 2.16.8 [id number] 1961 Unknown [id number] 2.16.8 [id number] 1961 Unknown [id number] 2.16.8 [id number] 1961 Unknown [id number] 2.16.8 [id number] 1961 Unknown [id number] 2.16.8 [id number] 1961 Unknown [id number] 2.16.8 [id number] Private Health Insurance [id number] Unknown [id number] 2.16.8 [id number] Unknown [id number] 2.16.8 [id number] Social History Date Type Detail Facility Start: 05-31-2019 Never smoked t obacco (finding) [facility] Sex Assigned At [facility] Start: 07-19-2016 End: 05-01-2022 Tobacco smoking status NHIS Unknown if ever smoked [facility] Start: 1960 Sex Assigned At Male [facility] Start: 05-31-2014 Sex Male (finding) [facility] Medical Equipment Procedure Code Equipment Code Equipment Origin al Text Equipment Identifier Dates Ligation clip, synthetic polymer, non-bioabsorbable ([id number] FDA Start: 05-10-2022 Goals Date Patient Goal Desired Activity /State Functional Status Date Assessment Result Facility 04-28-2023 Functional Status Maintained, Less than 8 hours [facility] 05-11-2022 Functional status Chair [facility] Work Phone: Mental Status Date Assessment Result Facility 04-28-2023 Mental Status Orientation Asse ssment Oriented x 4 [facility] 05-11-2022 Cognitive function Level Of Cons ciousness Awake;Alert;Appropriate;Follow s Commands [facility] Work Phone: 05-10-2022 Cognitive function Appropriate;Cooperativ e [facility] Work Phone: 05-10-2022 Cognitive function Voice/Name [facility] Work Phone: Clinical Notes 04-28-2023 to 10-11-2024 Note Date & Type Note Facility 10-11-2024 Note Exam Date Time Procedure Performing Provider Status 10/11/24 7:23 AM US Soft Tissue Mass of LT Arm of Leg DOE SYED MD; Auth (Verified) [id number] ORIGINAL EXAMINATION: SOFT TISSUE ULTRASOUND OF THE LEFT EXTREMITY10/11/2024 7:33 am COMPARISON: None TECHNIQUE: Duplex ultrasound using B-mode/berger scaled imaging and Doppler spectral analysis and color flow was obtained of the left extremity. HISTORY: ORDERING SYSTEM PROVIDED HISTORY: Reason for Exam: calf mass, FINDINGS: Scanning of the posteromedial calf in the area of patient's pain and concern shows no focal abnormality or mass. The musculature and soft tissues are unremarkable in this region. Scanning of the mid calf region posteriorly shows a small elliptical ovoid mildly complex fluid collection that has some internal echoes and moderately thick wall. This is 2.4 x 2.5 x 0.6 cm and seems to be located just superficial to the musculature. There is no blood flow in this abnormality. IMPRESSION: There is a small complex fluid collection in the posterior calf. This may be a hematoma within or just superficial to the musculature. Suggest short-term follow-up in about 8 weeks to demonstrate decrease in size/resolution. If this persists or enlarges or patient's symptoms are non resolving, MRI of the lower leg may be appropriate. Interpreted by: Doe Syed MD Preliminary Report By: Doe Syed MD Electronically signed By Doe Syed MD Dictated Date: 10/11/2024 11:55:02 AM Prelim Date: 10/11/2024 11:57:27 AM Sign Date: 10/11/2024 11:57:27 AM Ordering Provider: [facility]08-14-2023 Evaluation + Plan noteExtracted from: Title:History and Physical Author:ALBERT COTO MD Date:04/28/23 Orders: Lactated Ringers Infusion 1,000 mL, Start: 04/28/23 9:23:00 EDT, Rate: 20 mL/hr, 04/28/23 9:23:00 EDT Communication Order (scheduled) Communication Order (scheduled) Communication Order (scheduled) Consult to Anesthesia Sign Consent Brother had a history of colon cancer. He previously had an adenomatous polyp 5 years ago and was advised to have follow-up today. Consent conference held. Future Appointments Appointment Date:08/21/2023 09:30:00 AM Scheduled Provider:LISETTE SORTO Location:[facility] Appointment Type:PC OV Future Scheduled Tests Laboratory* Prostate Specific Antigen 05/01/22 * Complete Blood Count 12/02/22 * Lipid Profile 05/01/22 [facility] 08-14-2023 Hospital Discharge instructions Patient Education 04/28/2023 10:37:31 Moderate Conscious Sedation, Adult, Care After Moderate Conscious Sedation, Adult, Care After These instructions provide you with information about caring for yourself after your procedure. Your health care provider may also give you more specific instructions. Your treatment has been plannedaccording to current medical practices, but problems sometimes occur. Call your health care provider if you have any problems or questions after your procedure. What can I expect after the procedure? After your procedure, it is common: To feel sleepy for several hours. To feel clumsy and have poor balance for several hours. To have poor judgment for several hours. To vomit if you eat too soon. Follow these instructions at home: For at least 24 hours after the procedure: Do not: ?Participate in activities where you could fall or become injured. ?Drive. ?Use heavy machinery. ?Drink alcohol. ?Take sleeping pills or medicines that cause drowsiness. ?Make important decisions or sign legal documents. ?Take care of children on your own. Rest. Eating and drinking Follow the diet recommended by your health care provider. If you vomit: ?Drink water, juice, or soup when you can drink without vomiting. ?Make sure you have little or no nausea before eating solid foods. General instructions Have a responsible adult stay with you until you are awake and alert. Take oxga-has-bdaeqkf and prescription medicines only as told by your health care provider. If you smoke, do not smoke without supervision. Keep all follow-up visits as told by your health care provider. This is important. Contact a health care provider if: You keep feeling nauseous or you keep vomiting. You feel light-headed. You develop a rash. You have a fever. Get help right away if: You have trouble breathing. This information is not intended to replace advice given to you by your health care provider. Make sure you discuss any questions you have with your health care provider. Document Released: 06/22/2014 Document Revised: 08/14/2018 Document Reviewed: 12/21/2016 [employer] Patient Education 2020 [employer]. 04/28/2023 10:37:24 Colon Biopsy, Care After Colon Biopsy, Care After This sheet gives you information about how to care for yourself after your procedure. Your health care provider may also give you more specific instructions. If you have problems or questions, contact your health care provider. What can I expect after the procedure? After the procedure, it is common to have: A small amount of blood in your stool for 24 hours after the procedure. Some gas. Mild cramping or bloating in your abdomen. Follow these instructions at home: General instructions For the first 24 hours after the procedure: ?Do not drive or use machinery. ?Do not sign important documents. ?Do not drink alcohol. ?Do your regular daily activities at a slower pace than normal. ?Eat soft, nivk-xg-unvyoq foods. ?Rest often. Take tyuv-dcd-dcxztxj or prescription medicines only as told by your health care provider. Keep all follow-up visits as told by your health care provider. This is important. Relieving cramping and bloating Try walking around when you have cramps or feel bloated. Put heat on your abdomen as told by your health care provider. Use a heat source that your health care provider recommends, such as a moist heat pack or a heating pad. ?Place a towel between your skin and the heat source. ?Leave the heat on for 20 30 minutes. ?Remove the heat if your skin turns bright red. This is especially important if you are unable to feel pain, heat, or cold. You may have a greater risk of getting burned. Eating and drinking Drink enough fluid to keep your urine pale yellow. Return to your normal diet as instructed by your health care provider. Avoid heavy or fried foods that are hard to digest. Avoid drinking alcohol for as long as told by your health care provider. Contact a health care provider if: You have blood in your stool 2 3 days after the procedure. Get help right away if: You have more than a small spotting of blood in your stool. You pass large blood clots in your stool. Your abdomen is swollen. You have nausea or vomiting. You have a fever. You have increasing abdominal pain that is not relieved with medicine. Summary After the procedure, it is common to have mild cramping and bloating in the abdomen. Do not drive for 24 hours after the procedure. Try walking around when you have cramps or feel bloated. This information is not intended to replace advice given to you by your health care provider. Make sure you discuss any questions you have with your health care provider. Document Released: 02/10/2018 Document Revised: 08/14/2018 Document Reviewed: 02/10/2018 [employer] Patient Education 2020 [employer]. 04/28/2023 10:37:22 Colon Polyps Colon Polyps Polyps are tissue growths inside the body. Polyps can grow in many places, including the large intestine (colon). A polyp may be a round bump or a mushroom-shaped growth. You could have one polyp or several. Most colon polyps are noncancerous (benign). However, some colon polyps can become cancerous over time. Finding and removing the polyps early can help prevent this. What are the causes? The exact cause of colon polyps is not known. What increases the risk? You are more likely to develop this condition if you: Have a family history of colon cancer or colon polyps. Are older than 50 or older than 45 if you are . Have inflammatory bowel disease, such as ulcerative colitis or Crohn's disease. Have certain hereditary conditions, such as: ?Familial adenomatous polyposis. ?Willis syndrome. ?Turcot syndrome. ?Peutz Jeghers syndrome. Are overweight. Smoke cigarettes. Do not get enough exercise. Drink too much alcohol. Eat a diet that is high in fat and red meat and low in fiber. Had childhood cancer that was treated with abdominal radiation. What are the signs or symptoms? Most polyps do not cause symptoms. If you have symptoms, they may include: Blood coming from your rectum when having a bowel movement. Blood in your stool. The stool may look dark red or black. Abdominal pain. A change in bowel habits, such as constipation or diarrhea. How is this diagnosed? This condition is diagnosed with a colonoscopy. This is a procedure in which a lighted, flexible scope is inserted into the anus and then passed into the colon to examine the area. Polyps are sometimes found when a colonoscopy is done as part of routine cancer screening tests. How is this treated? Treatment for this condition involves removing any polyps that are found. Most polyps can be removed during a colonoscopy. Those polyps will then be tested for cancer. Additional treatment may be needed depending on the results of testing. Follow these instructions at home: Lifestyle Maintain a healthy weight, or lose weight if recommended by your health care provider. Exercise every day or as told by your health care provider. Do not use any products that contain nicotine or tobacco, such as cigarettes and e-cigarettes. If you need help quitting, ask your health care provider. If you drink alcohol, limit how much you have: ?0 1 drink a day for women. ? 0 2 drinks a day for men. Be aware of how much alcohol is in your drink. In the [place] one drink equals one 12 oz bottle of beer (355 mL), one 5 oz glass of wine (148 mL), or one 1 oz shot of hard liquor (44 mL). Eating and drinking Eat foods that are high in fiber, such as fruits, vegetables, and whole grains. Eat foods that are high in calcium and vitamin D, such as milk, cheese, yogurt, eggs, liver, fish, and broccoli. Limit foods that are high in fat, such as fried foods and desserts. Limit the amount of red meat and processed meat you eat, such as hot dogs, sausage, harper, and lunch meats. General instructions Keep all follow-up visits as told by your health care provider. This is important. ?This includes having regularly scheduled colonoscopies. ?Talk to your health care provider about when you need a colonoscopy. Contact a health care provider if: You have new or worsening bleeding during a bowel movement. You have new or increased blood in your stool. You have a change in bowel habits. You lose weight for no known reason. Summary Polyps are tissue growths inside the body. Polyps can grow in many places, including the colon. Most colon polyps are noncancerous (benign), but some can become cancerous over time. This condition is diagnosed with a colonoscopy. Treatment for this condition involves removing any polyps that are found. Most polyps can be removed during a colonoscopy. This information is not intended to replace advice given to you by your health care provider. Make sure you discuss any questions you have with your health care provider. Document Released: 05/28/2005 Document Revised: 12/17/2018 Document Reviewed: 12/17/2018 Elsevier Patient Education 2020 [employer]. Follow Up Care 03/06/2023 08:02:44 With:MELISSA COTO MD, Clinical Gastroenterology Address: [address] [place] [address] [place] [address] [phone] When: Unknown Comments:Pathology results will be called or mailed to you within 2 weeks. Repeat colonoscopy as directed [facility] 08-14-2023 Summary of episode note Discharge Instructions Thank you for allowing [facility] to assist you with your healthcare needs. The following is importantdischarge information regarding your hospital visit. Your Care Team LISETTE SORTO What to do next Scheduled Follow-Up Appointments Appointment Type When With Where Contact InformationPC 08/21/2023 09:30 AM LISETTE DEL ROSARIO [address] [phone] Follow Up Appointments Follow Up with MELISSA COTO MD, Clinical Gastroenterology When Why: Pathology results will be called or mailed to you within 2 weeks. Repeat colonoscopy as directed Where: [address] [place] [address] [place] [address] [phone] The Following Activity and Diet Have Been Ordered for You Discharge Activity - Ordered -- Other, Follow the post-operative/post-procedure activity instructions provided by your physician's office., 04/28/23 10:29:00 EDT Discharge Diet - Ordered -- Follow the post-operative/post-procedure diet instructions provided by your physician's office.,04/28/23 10:29:00 EDT The Following Equipment Has Been Ordered for You No qualifying data available. The Following Treatments Have Been Ordered for You Discharge Labs No qualifying data available. Discharge Radiology No qualifying data available. Other Therapies No qualifying data available. Post Acute Orders No qualifying data available. Someone Will Contact You Regarding These Home Health Referrals No home referrals have been ordered for you. No one will call you. Allergies NKA Medications Please ask your primary doctor or pharmacist before taking any other medication not listed, including over the counter drugs, herbal medications, vitamins and or supplements as they may interact withyour home medications. What How Much When Why Instructions Last Dose Unchanged acetaminophen (acetaminophen 500 mg oral tablet) 2 tab(s) by mouth Every 6 hours as needed for for pain Unchanged carvedilol (carvedilol 12.5 mg oral tablet) 1 tab(s) by mouth Two (2) times a day Unchanged metFORMIN (metFORMIN 500 mg oral tablet (IR)) 1 tab(s) by mouth Every day Diabetes mellitus type 2 Unchanged polyethylene glycol 3350 with electrolytes (PEG-3350 with Electrolytes (Eqv-GoLYTELY) oral powder for reconstitution) See instructions Take as directed 1 day before colonoscopy. Follow instructions as provided by your GI provider at [facility]. Unchanged pravastatin (pravastatin 40 mg oral tablet) 1 tab(s) by mouth Daily at bedtime Diabetes mellitus type 2 Unchanged spironolactone (spironolactone 25 mg oral tablet) 1 tab(s) by mouth Once a day Please take this list to your next doctor s visit. Bring all medications you take, including over the counter medications, herbals and other supplements with you to your doctor s visit. Patients and families are reminded to discard old lists and to update any records with all medication providers or retail pharmacies. Education Materials Moderate Conscious Sedation, Adult, Care After These instructions provide you with information about caring for yourself after your procedure. Your health care provider may also give you more specific instructions. Your treatment has been plannedaccording to current medical practices, but problems sometimes occur. Call your health care provider if you have any problems or questions after your procedure. What can I expect after the procedure? After your procedure, it is common: To feel sleepy for several hours. To feel clumsy and have poor balance for several hours. To have poor judgment for several hours. To vomit if you eat too soon. Follow these instructions at home: For at least 24 hours after the procedure: Do not: ? Participate in activities where you could fall or become injured. ? Drive. ? Use heavy machinery. ? Drink alcohol. ? Take sleeping pills or medicines that cause drowsiness. ? Make important decisions or sign legal documents. ? Take care of children on your own. Rest. Eating and drinking Follow the diet recommended by your health care provider. If you vomit: ? Drink water, juice, or soup when you can drink without vomiting. ? Make sure you have little or no nausea before eating solid foods. General instructions Have a responsible adult stay with you until you are awake and alert. Take nswi-hbr-udsyvjm and prescription medicines only as told by your health care provider. If you smoke, do not smoke without supervision. Keep all follow-up visits as told by your health care provider. This is important. Contact a health care provider if: You keep feeling nauseous or you keep vomiting. You feel light-headed. You develop a rash. You have a fever. Get help right away if: You have trouble breathing. This information is not intended to replace advice given to you by your health care provider. Make sure you discuss any questions you have with your health care provider. Document Released: 06/22/2014 Document Revised: 08/14/2018 Document Reviewed: 12/21/2016 [employer] Patient Education [employer]. Colon Biopsy, Care After This sheet gives you information about how to care for yourself after your procedure. Your health care provider may also give you more specific instructions. If you have problems or questions, contact your health care provider. What can I expect after the procedure? After the procedure, it is common to have: A small amount of blood in your stool for 24 hours after the procedure. Some gas. Mild cramping or bloating in your abdomen. Follow these instructions at home: General instructions For the first 24 hours after the procedure: ? Do not drive or use machinery. ? Do not sign important documents. ? Do not drink alcohol. ? Do your regular daily activities at a slower pace than normal. ? Eat soft, tvjk-cj-yqzrnb foods. ? Rest often. Take afaa-yvd-qkgzakz or prescription medicines only as told by your health care provider. Keep all follow-up visits as told by your health care provider. This is important. Relieving cramping and bloating Try walking around when you have cramps or feel bloated. Put heat on your abdomen as told by your health care provider. Use a heat source that your health care provider recommends, such as a moist heat pack or a heating pad. ? Place a towel between your skin and the heat source. ? Leave the heat on for 20 30 minutes. ? Remove the heat if your skin turns bright red. This is especially important if you are unable to feel pain, heat, or cold. You may have a greater risk of getting burned. Eating and drinking Drink enough fluid to keep your urine pale yellow. Return to your normal diet as instructed by your health care provider. Avoid heavy or fried foods that are hard to digest. Avoid drinking alcohol for as long as told by your health care provider. Contact a health care provider if: You have blood in your stool 2 3 days after the procedure. Get help right away if: You have more than a small spotting of blood in your stool. You pass large blood clots in your stool. Your abdomen is swollen. You have nausea or vomiting. You have a fever. You have increasing abdominal pain that is not relieved with medicine. Summary After the procedure, it is common to have mild cramping and bloating in the abdomen. Do not drive for 24 hours after the procedure. Try walking around when you have cramps or feel bloated. This information is not intended to replace advice given to you by your health care provider. Make sure you discuss any questions you have with your health care provider. Document Released: 02/10/2018 Document Revised: 08/14/2018 Document Reviewed: 02/10/2018 [employer] Patient Education 2020 [employer]. Colon Polyps Polyps are tissue growths inside the body. Polyps can grow in many places, including the large intestine (colon). A polyp may be a round bump or a mushroom-shaped growth. You could have one polyp or several. Most colon polyps are noncancerous (benign). However, some colon polyps can become cancerous over time. Finding and removing the polyps early can help prevent this. What are the causes? The exact cause of colon polyps is not known. What increases the risk? You are more likely to develop this condition if you: Have a family history of colon cancer or colon polyps. Are older than 50 or older than 45 if you are . Have inflammatory bowel disease, such as ulcerative colitis or Crohn's disease. Have certain hereditary conditions, such as: ? Familial adenomatous polyposis. ? Willis syndrome. ? Turcot syndrome. ? Peutz Jeghers syndrome. Are overweight. Smoke cigarettes. Do not get enough exercise. Drink too much alcohol. Eat a diet that is high in fat and red meat and low in fiber. Had childhood cancer that was treated with abdominal radiation. What are the signs or symptoms? Most polyps do not cause symptoms. If you have symptoms, they may include: Blood coming from your rectum when having a bowel movement. Blood in your stool. The stool may look dark red or black. Abdominal pain. A change in bowel habits, such as constipation or diarrhea. How is this diagnosed? This condition is diagnosed with a colonoscopy. This is a procedure in which a lighted, flexible scope is inserted into the anus and then passed into the colon to examine the area. Polyps are sometimes found when a colonoscopy is done as part of routine cancer screening tests. How is this treated? Treatment for this condition involves removing any polyps that are found. Most polyps can be removed during a colonoscopy. Those polyps will then be tested for cancer. Additional treatment may be needed depending on the results of testing. Follow these instructions at home: Lifestyle Maintain a healthy weight, or lose weight if recommended by your health care provider. Exercise every day or as told by your health care provider. Do not use any products that contain nicotine or tobacco, such as cigarettes and e-cigarettes. If you need help quitting, ask your health care provider. If you drink alcohol, limit how much you have: ? 0 1 drink a day for women. ? 0 2 drinks a day for men. Be aware of how much alcohol is in your drink. In the [place] one drink equals one 12 oz bottle of beer (355 mL), one 5 oz glass of wine (148 mL), or one 1 oz shot of hard liquor (44 mL). Eating and drinking Eat foods that are high in fiber, such as fruits, vegetables, and whole grains. Eat foods that are high in calcium and vitamin D, such as milk, cheese, yogurt, eggs, liver, fish, and broccoli. Limit foods that are high in fat, such as fried foods and desserts. Limit the amount of red meat and processed meat you eat, such as hot dogs, sausage, harper, and lunch meats. General instructions Keep all follow-up visits as told by your health care provider. This is important. ? This includes having regularly scheduled colonoscopies. ? Talk to your health care provider about when you need a colonoscopy. Contact a health care provider if: You have new or worsening bleeding during a bowel movement. You have new or increased blood in your stool. You have a change in bowel habits. You lose weight for no known reason. Summary Polyps are tissue growths inside the body. Polyps can grow in many places, including the colon. Most colon polyps are noncancerous (benign), but some can become cancerous over time. This condition is diagnosed with a colonoscopy. Treatment for this condition involves removing any polyps that are found. Most polyps can be removed during a colonoscopy. This information is not intended to replace advice given to you by your health care provider. Make sure you discuss any questions you have with your health care provider. Document Released: 05/28/2005 Document Revised: 12/17/2018 Document Reviewed: 12/17/2018 [employer] Patient Education 2020 [employer]. Additional Information VACCINATE! IT SAVES LIVES! Members of the community who have not yet received the COVID-19 vaccine and would like to receive it can visit one of [facility] vaccine clinics. There are many vaccine clinic locations within the [facility]. For locations and available times, please visit https://gettheshot.coronavirus.[place].gov/. It is important to note that some COVID mobile vaccine clinics are held outdoors and may be canceled in rainy or stormy conditions. To learn more about pediatric vaccinations (ages 5-11), we invite you to visit the [facility] webpage. https://www.AMECs.org/pages/4245-Dlure-Sgyqaxgngal-Akwlcgxwyl-Fujfq-Tmp stions.htmlTo learn more about the COVID-19 vaccine, we invite you to visit the CDC website for a list of frequently asked questions.https://www.cdc.gov/coronavirus/2019-ncov/vaccines/faq.html [facility] Patient Portal Access Instructions: Stay connected with your healthcare team and access your personal medical information anytime with the [facility] Patient Portal. Please follow the directions below to create your [facility] account: 1.Access the email account you provided upon registration to the hospital/physician office.2.Look for an invitation email from [facility].3.Open the email and access the invitation link: AcceptInvitation to [employer].4.Fill in the required huerta to create your account. To access your account, visit [employer]. Click the blue button labeled Access Patient Portal and then log in with the username and password that you created in the steps above. You will be able to view your test results, lab results, a summary of your visits, upcoming appointments and more. There is also a convenient messaging option where you can send secure messages to your p rovider. In addition, you will have the ability to download any documents or summaries to your computer and/or send the information securely to a physician. Remember that your healthcare information is confidential, so carefully consider who you will allowto register on the [facility] for access to your information. You can also access the [facility] on the [place] [facility] emmanuelle. Simply click on Patient Portal and then log into your account. If you would like to receive a full copy of your medical records, please contact the [facility] Medical Records Department by calling [phone], Friday through Friday between 8 a.m. and 4:30 p.m. HOW TO SAFELY DISPOSE OF PRESCRIPTION MEDICATIONS Please use one of the following methods to safely dispose of your unused medications. 1.Use a drug disposal kit: the drug disposal pouch allows you to safely discard your old and unuseddrugs. Ask your nurse to give you one when you are discharged.2.Visit a local take-back location: Many local pharmacies and police departments have programs that collect old and unwanted prescriptiondrugs. Call your local pharmacy or go to http://Consc[employer] Box.[facility]/0A7Ox8s to find one close to you.3.Make use of household items: Use cat litter or old coffee grounds to dispose medications if other options arenot available. Mix your drugs with these household products, seal them in an airtight container andthrow it into the garbage. Call [facility]: [phone] to be sure your drugs can be disposed of in this way. Some medicines may require a different approach.4.Never flush your medications down the toilet. IF YOU HAVE BEEN PRESCRIBED AN OPIOID FOR PAIN If you have been prescribed an opioid (such as hydrocodone, oxycodone or morphine), it is critical to understand the possible side effects and risks of opioid pain medications. Even when taken as directed, opioids can have several side effects including: Tolerance, meaning you might need to take more of a medication for the same pain relief. Nausea, vomiting and/or constipation. Sleepiness, dizziness, dry mouth, confusion, depression or itching. Physical dependence, meaning you have withdrawal symptoms when a medication is stopped, can develop within a few days. KNOW YOUR RESPONSIBILITIES It is important to know exactly how much and how often to take the opioid pain medications you are prescribed. Never take opioids in higher amounts or more often than prescribed. Do not combine opioids with alcohol or other drugs that cause drowsiness, such as benzodiazepines, also known as benzos, including diazepam and alprazolam, muscle relaxants or sleep aids. Never sell or share prescription opioids. This is illegal. Store opioids in a secure place and out of reach of others (including children, family, friends and visitors). The last page of this document has been signed and retained as a CHART COPY. Signatures Patient Education Materials Moderate Conscious Sedation, Adult, Care After Colon Biopsy, Care After Colon Polyps Medication Leaflets My discharge plan and instructions have been reviewed and explained to me and I,STALIN BENTLEY understand my current condition and have read and understand these discharge instructions. I have received a written copy of the plan/instructions. If I have questions, I am aware that I should contact my doctor. 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 Signature: Date/Time: Relationship to Patient: Witness Name/Signature: Date/Time: [facility]08-14-2023 Anesthesiology Consult note Patient: STALIN BENTLEY Age: 62 years Sex: Male : 1960 Associated Diagnoses: None Author: DENIS HDEZ APRN-DISASSEMBLER PRODUCT Assessment Postanesthesia assessment Vitals: Vital signs from flowsheet : Vital Signs 04/28/2023 10:25 EDT Heart Rate Monitored 68 bpm bpm Respiratory Rate - Anes 18 br/min br/min Systolic Blood Pressure Non-Invasive 124 mmHg mmHg Diastolic Blood Pressure Non-Invasive 86 mmHg mmHg 04/28/2023 10:20 EDT Heart Rate Monitored 71 bpm bpm Respiratory Rate - Anes 24 br/min br/min Systolic Blood Pressure Non-Invasive 140 mmHg mmHg Diastolic Blood Pressure Non-Invasive 90 mmHg mmHg 04/28/2023 10:15 EDT Heart Rate Monitored 73 bpm bpm Respiratory Rate - Anes 21 br/min br/min Systolic Blood Pressure Non-Invasive 126 mmHg mmHg Diastolic Blood Pressure Non-Invasive 88 mmHg mmHg 04/28/2023 10:10 EDT Heart Rate Monitored 68 bpm bpm Respiratory Rate - Anes 19 br/min br/min Systolic Blood Pressure Non-Invasive 117 mmHg mmHg Diastolic Blood Pressure Non-Invasive 86 mmHg mmHg 04/28/2023 10:05 EDT Heart Rate Monitored 66 bpm bpm Respiratory Rate - Anes 16 br/min br/min Systolic Blood Pressure Non-Invasive 121 mmHg mmHg Diastolic Blood Pressure Non-Invasive 86 mmHg mmHg 04/28/2023 10:01 EDT Systolic Blood Pressure Non-Invasive 124 mmHg mmHg Diastolic Blood Pressure Non-Invasive 93 mmHg mmHg 04/28/2023 10:00 EDT Respiratory Rate - Anes 0 br/min br/min , Measurements from flowsheet . Mental status: alert & oriented x 4. Respiratory function: respirations are non-labored. Respiratory support: none. CV function: Normal rate. Cardiovascular support: none. Pain. Nausea status: see nursing documentation of medications. Postoperative hydration status: within normal limits. Digitally Signed by DENIS HDEZ on 04/28/2023 10:34 AM [facility]08-14-2023 Anesthesiology Consult note Patient: STALIN BENTLEY Age: 62 years Sex: Male : 1960 Associated Diagnoses: None Author: DENIS HDEZ Preoperative Information Time of last solid food intake: 04/28/2023 00:00:00 Time of last clear liquid intake: 04/28/2023 05:00:00 Anesthesia history Patient's history: negative. Family's history: negative. Health Status Allergies: Allergic Reactions (Selected) NKA, Allergies (1) ActiveReaction NKANone Documented Current medications: (Selected) Inpatient Medications Ordered Lactated Ringers Infusion 1,000 mL: 20 mL/hr, Intravenous Prescriptions Prescribed PEG-3350 with Electrolytes (Eqv-GoLYTELY) oral powder for reconstitution: See Instructions, Take asdirected 1 day before colonoscopy. Follow instructions as provided by your GI provider at [facility]., 1 EA, 0 Refill(s) metFORMIN 500 mg oral tablet (IR): 500 mg, 1 tab(s), Oral, Daily, 90 tab(s), 3 Refill(s) pravastatin 40 mg oral tablet: 40 mg, 1 tab(s), Oral, qHS, 90 tab(s), 3 Refill(s) Documented Medications Documented acetaminophen 500 mg oral tablet: 1,000 mg, 2 tab(s), Oral, q6hr, PRN: for pain, 0 Refill(s) carvedilol 12.5 mg oral tablet: 12.5 mg, 1 tab(s), Oral, BID, 180 tab(s), 0 Refill(s) spironolactone 25 mg oral tablet: 25 mg, 1 tab(s), Oral, qDay, 0 Refill(s), Medications (1) Active Scheduled: (0) Continuous: (1) Lactated Ringers 1,000 mL 1,000 mL, Intravenous, 20 mL/hr PRN: (0) Problem list: Medical Benign hypertension / SNOMED CT 70301233 / Confirmed Benign hypertension with chronic kidney disease / SNOMED CT 45213960 / Confirmed CKD (chronic kidney disease), stage II / SNOMED CT 0107351938 / Confirmed Diabetes mellitus type 2 / SNOMED CT 751637546 / Confirmed Family history of colon cancer / SNOMED CT 910615211 / Confirmed GERD (gastroesophageal reflux disease) / SNOMED CT 413424127 / Confirmed History of colon polyps / SNOMED CT 0726274866 / Confirmed Hyperlipidemia / SNOMED CT 68465941 / Confirmed Malignant neoplasm of prostate / SNOMED CT 0536450034 / Confirmed Onychomycosis / SNOMED CT 9612916984 / Confirmed Colon cancer screening / SNOMED CT 785004353 / Confirmed Inguinal hernia, right / SNOMED CT 878921193 / Confirmed Type 2 diabetes with kidney complications / SNOMED CT 665785048 / Confirmed, Active Problems (13) Benign hypertension Benign hypertension with chronic kidney disease CKD (chronic kidney disease), stage II Colon cancer screening Diabetes mellitus type 2 Family history of colon cancer GERD (gastroesophageal reflux disease) History of colon polyps Hyperlipidemia Inguinal hernia, right Malignant neoplasm of prostate Onychomycosis Type 2 diabetes with kidney complications Histories Past Medical History: Resolved Hypertension ([id number]): Resolved. High cholesterol ([id number]): Resolved. GERD - Gastro-esophageal reflux disease (4212956524): Resolved. Family History: Cardiac pacemaker Brother Diabetes mellitus Mother () Father () Brother Breast cancer Mother () Hypertension Brother Heart disease Brother Brain tumor Mother () Cancer Father () Mother () Malignant neoplasm of bone Father () Procedure history: Radical prostatectomy ([id number]) on 05/10/2022 at 61 Years. Comments: 05/31/2022 15:12 Carole Prater LPN, [facility] Robotic assisted surgery ([id number]) on 07/06/2020 at 60 Years. Comments: 07/06/2020 13:16 Aishwarya Gerard RN BILATERAL INGUNIAL HERNIA REPAIR Colonoscopy ([id number]) on 01/05/2018 at 57 Years. Eye examination, DM ([id number]) on 11/29/2017 at 57 Years. Comments: 12/01/2019 11:14 Carole Prater LPN 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 Physical Examination Vital Signs(last 24 hrs) Last Charted XNW390.88 (APR 28 09:33) Measurements from flowsheet : Measurements 04/28/2023 9:33 EDT Height 73 cm Height in inches 28.7 inch(es) Admission Weight 82 kg Weight Lbs 180.4 lb [place] Body Weight -21.90 kg BSA Admission 1.05 Body Mass Index 153.88 kg/m2 General: Alert and oriented. Airway: Normal temporomandibular joint mobility, Normal mouth, Normal neck range of motion. Mallampati classification: III (soft palate, base of uvula visible). Dentition Evaluation: Denies loose/chipped teeth. Respiratory: Respirations are non-labored. Cardiovascular: Normal rate. Neurologic: Alert, Oriented. Review / Management Results review: No qualifying data available , Lab results 04/28/2023 10:02 EDT SN - Proc - Anesthesia Type MAC SN - Proc - EBL 0 mL 04/28/2023 10:02 EDT SN - PP - Body Position Lateral Right Side-up Standard Intra-op 04/28/2023 10:02 EDT SN - GCD - Post-operative Diagnosis SCREENING SN - GCD - Case Level OPD Level 3 04/28/2023 10:01 EDT SN - Proc - Actual Procedure COLONOSCOPY 04/28/2023 10:01 EDT SN - CAt - Case Attendee SN - CAt - Case Attendee SN - CAt - Case Attendee SN - CAt - Case Attendee SN - CAt - Case Attendee SN - CAt - Case Attendee SN - CAt - Case Attendee SN - CAt - Case Attendee SN - CAt - Role Performed Primary Surgeon SN - CAt - Role Performed DISASSEMBLER PRODUCT SN - CAt - Role Performed Supervisor Shaving And Splitting 1 SN - CAt - Role Performed Aoc Director Combat Plans Officer 04/28/2023 10:00 EDT [place] Pre-Surgical History & Physical History and Physical 04/28/2023 9:42 EDT Hand Right 04/28/2023 22 gauge Peripheral IV Activity: Insert new site Peripheral IV Dressing Condition: Clean, Dry, Intact Peripheral IV Dressing Activity: Applied Peripheral IV Line Care: Secured with tape Peripheral IV Equipment: Extension set Peripheral IV Number of Attempts: 1 04/28/2023 9:33 EDT Designated Person #1 We May Share BRITTNEY GILL [phone] Designated Person #1 Relationship Daughter Privacy Restrictions Requested None Height 73 cm Height in inches 28.7 inch(es) Admission Weight 82 kg Weight Lbs 180.4 lb [place] Body Weight -21.90 kg BSA Admission 1.05 Body Mass Index 153.88 kg/m2 Patient Type Outpatient Status N/A Do You Wish/Go to Sleep/Never Wake Up No Thoughts of Harming Others - History No Thoughts of Suicide - History No Hospital Clergy to Visit Patient Verbalizes No Spiritual Needs Sensory Deficits None Advanced Directives No - refuses information Infectious Disease Symptoms Patient states no symptoms Infectious Disease Recent Exposure No Alcohol and Drug Use No Employee of Institutional Living No Health Care Employee No History of Exposure to TB No History of Positive Chest X-Ray for TB No History of Positive TB Skin Test No Homeless No Known Immunosuppression No Recent Immigrant No Resident of Institutional Living No Bloody Sputum No Fatigue No Fever No Loss of Appetite No Night Sweats No Persistent Cough > 3 Weeks No Weight Loss No Barriers to Learning None evident Teaching Method Electronic, Explanation Preferred Spoken Language [place] Preferred Written Language [place] Teaching Evaluation No further teaching needed Safety Brochure Information Reviewed Yes Alexa Hart Video Viewed No Information Given by Patient Patient's Current Physicians Patient's Current Physicians Belongings At Bedside None Personal Home Medications Received No home medications were brought in Belongings Sent Home None Belongings to Security/Secured in Dept None Discharge To, Anticipated Home with family care Prev Test Positive/Diagnosis w/COVID-19 No Current Quarantine/Isolated any Illness No Any Contact with Sick Animals/Birds No Traveled Anywhere in Last 30 Days No Lost Weight Unintentionally Recently No Eat Poorly Due to Decreased Appetite No Total MST Score 0 N/A Personal Devices, Patient Valuables Glasses Admission Note-Nursing Patient History (AO) 04/28/2023 9:26 EDT Urinary Elimination Voiding, no difficulties IV Present Present Allergies No Anesthesia Extension Set Applied Yes Leak Detector On Yes Consent Form Signed Yes Patient Dressed In Hospital gown Pre-op Preparation Glasses removed History & Physical Update On Chart Yes History & Physical On Chart Yes Bowel Prep Completed Yes Obstructive Sleep Apnea Assess Completed No NPO Status Maintained, Less than 8 hours Allergy Band on and Verified No Patient ID Band on and Verified Yes Implants Verified No Pacemaker/AICD Verified No Site Verified by Patient/Family Yes Anesthesia Consent Signed Yes Last Fluid Intake 04/27/2023 5:00 Last Food Intake 04/26/2023 20:00 Last Void 04/28/2023 9:00 . Assessment and Plan [place] [employer] Anesthesiologists (ASA) physical status classification: Class III. Anesthetic Preoperative Plan Anesthetic technique: MAC. Informed consent: signed by patient. Digitally Signed by DENIS HDEZ on 04/28/2023 10:05 AM [facility] [id number] Note Date of Service 04/28/2023 Chief Complaint History of prior polyps History of Present Illness This is a preprocedural/presurgical H&P. The patient was originally evaluated by Soraya Grimaldo, the PA. Please refer to her note also. I independently and personally performed a history and physical examination with this patient and repeated the quintero components of the exam/history. I have reviewed her note. The patient was scheduled for endoscopy based on that visit and was evaluated by me prior to it. Voice recognition software was utilized for this document and may contain recognition errors inherent in that process. He is a 62-year-old who was referred for colonoscopy. He did have previous colonoscopy here by another physician and had a polyp. He has had a family history of colon cancer and a brother who was diagnosed at about age 50. He is not having current symptoms. Previous polyp was reportedly adenomatous. Physical Exam Vitals and Measurements HT: 73 cm WT: 82 kg BMI: 153.88 Weight Dosing Weight: 82 kg (04/28/23) General appearance: The patient is alert and oriented and in no apparent distress. Vital signs werereviewed. HEENT: Hearing is appropriate. Sclera are clear and nonicteric. Nares normal. Oral mucosa is normal. Neck is free of lymphadenopathy. The trachea is midline. Chest: No supraclavicular lymphadenopathy. Lungs: Lungs are clear bilaterally. No rales or wheezing. Cardiac: Regular rhythm and no murmurs or gallops heard. Abdomen: Bowel sounds are present. The abdomen is soft, nontender. No palpable masses. No organomegaly. No inguinal lymphadenopathy. Rectal examination is deferred. Extremities: No cyanosis or clubbing. Neurology: No gross focal neurologic deficits. Integument: No telangiectasias or petechiae are seen. Lymphatic: No supraclavicular cervical inguinal adenopathy found Psychiatric examination: The patient is alert and oriented. Cognition seems appropriate. Recent andremote memory intact. Affect is appropriate. Lab Results No 36 Hour Lab Data Assessment/Plan Orders: Lactated Ringers Infusion 1,000 mL, Start: 04/28/23 9:23:00 EDT, Rate: 20 mL/hr, 04/28/23 9:23:00 EDT Communication Order (scheduled) Communication Order (scheduled) Communication Order (scheduled) Consult to Anesthesia Sign Consent Brother had a history of colon cancer. He previously had an adenomatous polyp 5 years ago and was advised to have follow-up today. Consent conference held. Problem List/Past Medical History Ongoing Benign hypertension Benign hypertension with chronic kidney disease CKD (chronic kidney disease), stage II Colon cancer screening Diabetes mellitus type 2 Family history of colon cancer GERD (gastroesophageal reflux disease) History of colon polyps Hyperlipidemia Inguinal hernia, right Malignant neoplasm of prostate Onychomycosis Type 2 diabetes with kidney complications Historical GERD - Gastro-esophageal reflux disease High cholesterol Hypertension Procedure/Surgical History Radical prostatectomy: 05/10/22 Robotic assisted surgery: 07/06/20 Colonoscopy: 01/05/18 Eye examination, DM: 11/29/17 Medications Home Medications (6) Active acetaminophen 500 mg oral tablet 1,000 mg = 2 tab(s), PRN, Oral, q6hr carvedilol 12.5 mg oral tablet 12.5 mg = 1 tab(s), Oral, BID metFORMIN 500 mg oral tablet (IR) 500 mg = 1 tab(s), Oral, Daily PEG-3350 with Electrolytes (Eqv-GoLYTELY) oral powder for reconstitution See Instructions pravastatin 40 mg oral tablet 40 mg = 1 tab(s), Oral, qHS spironolactone 25 mg oral tablet 25 mg = 1 tab(s), Oral, qDay Allergies NKA Social History Smoking Status - 01/05/2018 Never smoker Alcohol - Denies Alcohol Use, 01/05/2018 Use: Never., 05/31/2019 Home/Environment Domestic Concerns: None. Living situation: Home/Independent. 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 Lives In: [facility] home., 06/21/2020 Nutrition/Health Type of diet: Calorie restricted. Appetite Good. Eating Difficulties None. Caffeine intake amount: caffeine free/sugar free pop., 06/04/2022 Substance Abuse - Denies Substance Abuse, 01/05/2018 Use: Never., 05/31/2019 Tobacco Tobacco Use: Never (less than 100 in lifetime)., 05/31/2019 Family History Brain tumor: Mother. Breast cancer: Mother. Cancer: Mother and Father. Cardiac pacemaker: Brother. Diabetes mellitus: Mother, Father and Brother. Heart disease: Brother. Hypertension: Brother. Malignant neoplasm of bone: Father. Sister: History is negative Daughter: History is negative Brother: History is negative Brother: History is negative Daughter: History is negative Immunizations SARS-CoV-2 mRNA (tozinameran) vaccine: 30 mcg (11/29/21) SARS-CoV-2 mRNA (tozinameran) vaccine: 0 unknown unit (01/10/21) SARS-CoV-2 mRNA (tozinameran) vaccine: 0 unknown unit (12/20/20) Code Status No qualifying data available. Digitally Signed by MELISSA COTO MD on 04/28/2023 10:01 AM [facility] Future Appointments Appointment Date:11/29/2021 09:00:00 AM Scheduled Provider:LISETTE SORTO Location:[facility] Appointment Type:PC OV Future Scheduled Tests Laboratory* Complete Blood Count 11/28/21 * Lipid Profile 11/28/21 * Lipid Profile 11/27/20 * Complete Metabolic Panel 11/28/21 [facility] Evaluation + Plan note Future Appointments Appointment Date:11/29/2021 09:00:00 AM Scheduled Provider:LISETTE SORTO Location:[facility] Appointment Type:PC OV Future Scheduled Tests Laboratory* Lipid Profile 11/27/20 [facility] Evaluation + Plan note Future Appointments Appointment Date:06/04/2022 09:00:00 AM Scheduled Provider:LISETTE SORTO Location:[facility] Appointment Type:PC OV Diagnostic Tests Pending * PTH, Intact 05/18/22 Future Scheduled Tests Laboratory* Prostate Specific Antigen 05/01/22 * Lipid Profile 05/01/22 [facility] Evaluation + Plan note Future Appointments Appointment Date:12/03/2022 09:00:00 AM Scheduled Provider:LISETTE SORTO Location:[facility] Appointment Type:PC OV Future Scheduled Tests Laboratory* Prostate Specific Antigen 05/01/22 * Complete Blood Count 12/02/22 * Lipid Profile 05/01/22 [facility] Evaluation + Plan note Future Appointments Appointment Date:01/16/2023 09:00:00 AM Scheduled Provider:LISETTE SORTO Location:[facility] Appointment Type:PC OV Future Scheduled Tests Laboratory* Prostate Specific Antigen 05/01/22 * Complete Blood Count 01/14/23 * Complete Blood Count 12/02/22 * Lipid Profile 05/01/22 * Complete Metabolic Panel 01/14/23 [facility] Evaluation + Plan note Future Appointments Appointment Date:02/17/2024 08:00:00 AM Scheduled Provider:LISETTE SORTO Location:[facility] Appointment Type:PC OV Future Scheduled Tests Laboratory* A1C Hemoglobin 02/25/24 * Complete Blood Count 12/02/22 * Complete Blood Count 02/25/24 * Lipid Profile 02/25/24 * Complete Metabolic Panel 02/25/24 [facility] Evaluation + Plan note Future Appointments Appointment Date:02/17/2024 08:00:00 AM Scheduled Provider:LISETTE SORTO Location:[facility] Appointment Type:PC OV [facility] Evaluation + Plan note Future Appointments Appointment Date:07/02/2024 08:30:00 AM Scheduled Provider:LISETTE SORTO Location:[facility] Appointment Type:PC OV [facility] Evaluation + Plan note Future Appointments Appointment Date:12/31/2024 09:00:00 AM Scheduled Provider:LISETTE SORTO Location:[facility] Appointment Type:PC OV [facility] Evaluation + Plan note Future Appointments Appointment Date:12/31/2024 09:00:00 AM Scheduled Provider:LISETTE SORTO Location:[facility] Appointment Type:PC OV Future Scheduled Tests Radiology* US Soft Tissue Mass of LT Arm or Leg 10/05/24 [facility] Evaluation noteNo assessment information available [facility] Work Phone: Hospital course Narrative No data available for this section [facility] Hospital Discharge instructions No data available for this section [facility] Hospital Discharge instructions Additional Instructions Implant Used?: Yes [facility] Work Phone: Progress note No data available for this section [facility] Chief Complaint and Reason for Visit Chief Complaint ELEVATED PROSTATE SP ECIFIC ANTIGEN Chief Complaint ELEVATED PROSTATE SP ECIFIC ANTIGEN LAP ROBOTIC RADICAL PROSTATECTOMY NERVE MONITORING Chief Complaint PSA Advance Directives No Advanced Directives Records Found Advance Directive Response Recorded Date/ Time Living Will No May 10 2 1:09pm Power of Ekg/Ecg Technician No May 10 022 1:09pm Advance Directive Response Recorded Date/ Time Living Will No May 10 2 12:09pm Power of Ekg/Ecg Technician No May 10 022 12:09pm Summary Purpose Family History No Family History Records Found Additional Source Comments Goals (unrecognized section and content) Goals may be documented in a n alternate section Care Team (unrecognized sect ion and content) Care Team Personnel Name: LISETTE SORTO Position: P4 Advanced Practice Nurse Member Role: Primary Care Physician Address: Address: [address] [place] [address] Name: RHIANNON KERR MD Position: P3 Physician - Nephrology Address: Address: [address] [place] [address] zain Gannon [facility] [address] Care Team Related Persons Name: FRED BENTLEY Care Team Personnel Name: LISETTE SORTO Position: P4 Advanced Sausage Meat Trimmer Member Role: Primary Care Physician Address: Address: [address] [place] [address] Name: RHIANNON KERR MD Position: P3 Physician - Nephrology Member Role: Examination Proctor Address: Address: [address] [place] [address] [facility] [place] [address]- Name: TYRONE JI MD Position: P3 Physician - Urologist Member Role: Urologist Address: Address: [address] [place] [address] [address] [place] [address]- [place] Care Team Related Persons Name: FRED BENTLEY Care Team Personnel Name: LISETTE SORTO Position: P4 Advanced Sausage Meat Trimmer Member Role: Primary Care Physician Address: Address: [address] [facility] [place] [address]- [place] Name: RHIANNON KERR MD Position: P3 Physician - Nephrology Member Role: Examination Proctor Address: Address: [facility] [address] [facility] [place] [address]- Name: TYRONE JI MD Position: P3 Physician - Urologist Member Role: Urologist Address: Address: [address] [place] [id number] Care Team Related Persons Name: FRED BENTLEY Care Teams (unrecognized sec tion and content) Team Status: Active Member Role Status Dates Dr. Ran Hernandez , Family Provider Active Lisette Sorto PARKS RECREATION COORDINATOR, PARKS RECREATION COORDINATOR-C Primary Care Provider Active Team Status: Inactive Member Role Status Dates Lisette Sorto PARKS RECREATION COORDINATOR, PARKS RECREATION COORDINATOR-C Primary Care Provider Active Dr. Tyrone Ji MD Attending Provider Active Team Status: Inactive Member Role Status Dates Lisette Sorto PARKS RECREATION COORDINATOR, PARKS RECREATION COORDINATOR-C Primary Care Provider Active Vaishali Herndon PARKS RECREATION COORDINATOR-C Attending Provider, Referrin g Provider Active Team Status: Inactive Member Role Status Dates Lisette Sorto PARKS RECREATION COORDINATOR, PARKS RECREATION COORDINATOR-C Primary Care Provider Active Supriya Montes De Oca Attending Provider Active (unrecognized sect ion and content) No Status Records FoundNo Status Records FoundNo Status Records Found INFORMATION SOURCE (unrecogn ized section and content) DATE CREATED AUTHOR 02/03/2024 [facility] ([place]) DATE CREATED AUTHOR AUTHOR'S ORGANIZ ATION 07/28/2024 [facility] DATE CREATED AUTHOR AUTHOR'S ORGANIZ ATION 01/06/2025 [facility] FOR RECORDS PERTAINING TO PATIENTS WHO ARE OR HAVE BEEN ENROLLED IN A CHEMICAL DEPENDENCY/SUBSTANCEABUSE PROGRAM, SOME INFORMATION MAY BE OMITTED. This clinical summary was aggregated from multiple sources. Caution should be exercised in using it in the provision of clinical care. This summary normalizes information from multiple sources, and as a consequence, information in this document may materially change the coding, format and clinical context of patient data. In addition, data may be omitted in some cases. CLINICAL DECISIONS SHOULD BE BASED ON THE PRIMARY CLINICAL RECORDS. [facility]. provides no warranty or guarantee of the accuracy or completeness of information in this document.
[2025-04-12 09:45] LABS: PSA,Total- Diagnostic < 0.02 ng/mL (0.00-4.00)
== END | disposition home or self-care (01) ==
PROVIDERS: PCP Nurse Practitioner Primary Care; Referring Provider Urology; Visit Provider Urology
DX: C61 Malignant neoplasm of prostate (principal)
CPT/HCPCS: 36415; 84153